=== PATIENT | female | born 1930 | race Caucasian/White ===

== ENCOUNTER 2016-11-09 17:12 | Outpatient (CLI) | payer MEDICARE, OTHER | END 2016-11-09 17:13 | disposition EMS.NT | LOC: EMS 17:12 | PROVIDERS: ATTEND Surgery | DX: R06.02 Shortness of breath (principal) ==

== ENCOUNTER 2016-12-05 22:53 | Outpatient (CLI) | payer MEDICARE, OTHER | END 2016-12-05 22:54 | disposition EMS.NT | LOC: EMS 22:53 | PROVIDERS: ATTEND Surgery | DX: Z03.89 Encounter for observation for other suspected diseases and conditions ruled out (principal) ==

== ENCOUNTER 2016-12-09 13:09 | Outpatient (CLI) | payer MEDICARE, OTHER | END 2016-12-09 13:10 | disposition EMS.NT | LOC: EMS 13:09 | PROVIDERS: ATTEND Surgery | DX: R53.1 Weakness (principal); W06.XXXA Fall from bed, initial encounter; Y92.003 Bedroom of unspecified non-institutional (private) residence as the place of occurrence of the external cause ==

== ENCOUNTER 2017-01-20 23:29 | Outpatient (CLI) | payer MEDICARE, OTHER | END 2017-01-20 23:30 | disposition EMS.NT | LOC: EMS 23:29 | PROVIDERS: ATTEND Surgery | DX: R53.1 Weakness (principal); W06.XXXA Fall from bed, initial encounter; Y92.003 Bedroom of unspecified non-institutional (private) residence as the place of occurrence of the external cause ==

== ENCOUNTER 2017-03-14 22:08 | Outpatient (CLI) | payer MEDICARE, OTHER | END 2017-03-14 22:09 | disposition EMS.NT | LOC: EMS 22:08 | PROVIDERS: ATTEND Surgery | DX: R53.1 Weakness (principal) ==

== ENCOUNTER 2017-04-06 21:05 | Outpatient (CLI) | payer MEDICARE, OTHER | END 2017-04-06 21:06 | disposition home or self-care (01) | LOC: EMS 21:05 | PROVIDERS: ATTEND Surgery | DX: Z03.89 Encounter for observation for other suspected diseases and conditions ruled out (principal) ==

== ENCOUNTER 2017-05-22 14:19 | Outpatient (CLI) | payer MEDICARE, OTHER | END 2017-05-22 14:20 | disposition EMS.NT | LOC: EMS 14:19 | PROVIDERS: ATTEND Surgery | DX: R15.9 Full incontinence of feces (principal) ==

== ENCOUNTER 2017-08-03 14:10 | Outpatient (CLI) | payer MEDICARE, OTHER ==
--- NOTE | 2017-08-04 09:53 | XRAY Report ---
TWO VIEW CHEST: 08/03/2017 COMPARISON STUDY: Frontal chest 08/02/2015. INDICATION: Wheezing. TECHNIQUE: Two views. FINDINGS: There are postoperative changes of the right thorax. The lungs appear to be otherwise clear. No pneumothorax or pleural effusion. There is stable cardiomegaly. IMPRESSION: NO EVIDENCE OF ACUTE THORACIC PROCESS. TD: 08/04/2017 09:52 MTDD
== END 2017-08-03 14:11 | disposition home or self-care (01) ==
LOC: DI 14:10
PROVIDERS: ATTEND Physician Assistant Medical
DX: R06.2 Wheezing (principal); R73.9 Hyperglycemia, unspecified; I10 Essential (primary) hypertension; E03.9 Hypothyroidism, unspecified; R32 Unspecified urinary incontinence; Z79.899 Other long term (current) drug therapy
CPT/HCPCS: 71046; 80053; 80061; 81001; 81003; 82306; 83036; 83721; 84443; 85025; 87086

== ENCOUNTER 2017-08-09 06:11 | Outpatient (CLI) | payer MEDICARE, OTHER | END 2017-08-09 06:12 | disposition EMS.NT | LOC: EMS 06:11 | PROVIDERS: ATTEND Surgery | DX: Z03.89 Encounter for observation for other suspected diseases and conditions ruled out (principal) ==

== ENCOUNTER 2017-08-31 05:21 | Outpatient (CLI) | payer MEDICARE, OTHER | END 2017-08-31 05:22 | disposition EMS.NT | LOC: EMS 05:21 | PROVIDERS: ATTEND Surgery | DX: R32 Unspecified urinary incontinence (principal) ==

== ENCOUNTER 2017-09-11 21:47 | Outpatient (CLI) | payer MEDICARE, OTHER | END 2017-09-11 21:48 | disposition EMS.NT | LOC: EMS 21:47 | PROVIDERS: ATTEND Surgery | DX: F41.9 Anxiety disorder, unspecified (principal) ==

== ENCOUNTER 2017-09-14 18:20 | Outpatient (CLI) | payer MEDICARE, OTHER | END 2017-09-14 23:59 | disposition EMS.NT | LOC: EMS 18:20 | PROVIDERS: ATTEND Surgery | DX: Z76.89 Persons encountering health services in other specified circumstances (principal) ==

== ENCOUNTER 2017-10-11 21:49 | Outpatient (CLI) | payer MEDICARE, OTHER | END 2017-10-11 21:50 | disposition EMS.NT | LOC: EMS 21:49 | PROVIDERS: ATTEND Surgery | DX: Z03.89 Encounter for observation for other suspected diseases and conditions ruled out (principal) ==

== ENCOUNTER 2017-10-11 23:58 | Outpatient (CLI) | payer MEDICARE, OTHER | END 2017-10-11 23:59 | disposition EMS.NT | LOC: EMS 23:58 | PROVIDERS: ATTEND Surgery | DX: Z03.89 Encounter for observation for other suspected diseases and conditions ruled out (principal) ==

== ENCOUNTER 2017-10-26 02:37 | Outpatient (CLI) | payer MEDICARE, OTHER | END 2017-10-26 02:38 | disposition critical access hospital (66) | LOC: EMS 02:37 | PROVIDERS: ATTEND Surgery | DX: R41.82 Altered mental status, unspecified (principal); R45.1 Restlessness and agitation | CPT/HCPCS: A0425; A0429 ==

== ENCOUNTER 2017-10-26 03:14 | Emergency (ER) | payer MEDICARE, OTHER ==
[2017-10-26 03:50] LABS: BILIRUBIN,URINE NEGATIVE (NEGATIVE); GLUCOSE, URINE (UA) NEGATIVE (NEGATIVE); KETONES,URINE (UA) NEGATIVE (NEGATIVE); LEUKOCYTE ESTERASE, URINE SMALL (NEGATIVE); NITRITE,URINE POSITIVE (NEGATIVE); OCCULT BLOOD,URINE LARGE (NEGATIVE); PH,URINE 5.5 PH (5.0-7.5); PROTEIN,URINE 30 mg/dL (NEGATIVE); UROBILINOGEN,URINE 0.2 (NORMAL) E.U./dL (NORMAL)
[2017-10-26 03:59] LABS: CLARITY,URINE CLEAR (CLEAR)
[2017-10-26 04:00] LABS: BACTERIA,URINE Moderate /HPF (None Seen); SQUAMOUS EPITHELIAL CELL,UR NONE SEEN (<= Few)
[2017-10-26 04:01] LABS: BASOPHILS % (AUTO) 0.4 %; EOSINOPHILS # (AUTO) 0.1 10^3/uL (0.0-0.7); EOSINOPHILS % (AUTO) 0.8 %; HGB - HEMOGLOBIN 13.9 g/dL (12.0-16.0); LYMPHOCYTES # (AUTO) 2.1 10^3/uL (1.5-3.5); LYMPHOCYTES % (AUTO) 24.4 %; MEAN CORPUSCULAR HEMOGLOBIN 32.3 pg (27.0-31.0); MEAN CORPUSCULAR HGB CONC 32.9 g/dL (32.0-36.0); MEAN CORPUSCULAR VOLUME 98.1 fL (81.0-99.0); MEAN PLATELET VOLUME 8.2 fL (7.9-10.8); MONOCYTES # (AUTO) 0.8 10^3/uL (0.0-1.0); MONOCYTES % (AUTO) 9.4 %; NEUTROPHILS # (AUTO) 5.7 10^3/uL (1.5-6.6); PLT - PLATELET COUNT 186 10^3/uL (130-450); RED CELL DISTRIBUTION WIDTH 13.5 % (12.0-15.0); WHITE BLOOD COUNT 8.8 x10^3/uL (4.8-10.8)
[2017-10-26 04:08] LABS: CREATININE 1.1 mg/dL (0.4-1.0)
--- NOTE | 2017-10-26 04:15 | ED Physician Documentation ---
PD HPI ALTERED MENTAL STATUS - Stated complaint Stated Complaint: AMS - Chief complaint Chief Complaint: General - History obtained from History obtained from: Patient, EMS - History of Present Illness Timing - details: Waxing and waning Quality / character: Confused Basline status: Alert and oriented X 3, Home, Other (Requires assistance to ambulate.) - Additional information Additional information: The patient is an 87-year-old female who arrives via ambulance because of apparent confusion. She lives alone in her own home, and has daytime caregivers , but is alone at night. Medics report that she has been calling [phone] 1 1 at night for caregiver assistance, such as helping find her medication, rearranging her in bed so she is more comfortable, and helping her locate her telephone. Tonight the medics spent an hour at her bedside at home trying to make her more comfortable, but became increasingly concerned that the patient was confused. In discussion with the patient's nephew, who lives in [place] and who is the patient's power of attorney recruiter, medics learned that the patient has been mentally clear during the day, but has become increasingly confused during the night. There has been discussion about getting a nighttime caregiver, but that has not yet been achieved. The patient states that she stays in bed from the time her caregivers leave in the evening until they arrive in the morning. 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 She is upset at being brought to the emergency department tonight, stating they took her from her home against her will. She denies any recent fever, headache, chest pain, cough, abdominal pain, nausea or vomiting, or dysuria. Review of Systems Constitutional: denies: Fever Eyes: reports: Other (Near blindness.) Nose: denies: Congestion Throat: denies: Sore throat Cardiac: denies: Chest pain / pressure Respiratory: denies: Dyspnea, Cough GI: denies: Abdominal Pain, Nausea, Vomiting : denies: Dysuria Musculoskeletal: denies: Back pain, Extremity pain Neurologic: reports: Confused (By medic report, but denied by the patient.). 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 - Past Surgical History Past Surgical History: Yes Ortho: Hip replacement - Present Medications Home Medications: Ambulatory Orders Medication Instructions Recorded Confirmed Brimonidine 0.15% Ophth Drops 1 08/02/15 [Alphagan P 0.15% Ophth Drops] Citalopram Hydrobromide [Celexa] 10 mg DAILY 08/02/15 08/02/15 Clopidogrel [Plavix] 75 mg DAILY 08/02/15 08/02/15 Hydrochlorothiazide 25 mg PO DAILY 08/02/15 08/02/15 Levothyroxine [Synthroid] 150 mcg PO QDAC 08/02/15 08/02/15 Lisinopril 40 mg PO DAILY 08/02/15 08/02/15 Metoprolol Tartrate 25 mg DAILY 08/02/15 08/02/15 Escitalopram [Lexapro] 10/26/17 10/26/17 Nitrofurantoin [Macrobid] 100 mg PO BID #10 capsule 10/26/17 - Allergies Allergies/Adverse Reactions: Allergies Allergy/AdvReac Type Severity Reaction Status Date / Time No Known Drug Allergies Allergy Verified 10/26/17 03:22 - Living Situation Living Situation: reports: With caregiver(s) (death claim clerk.) Living Arrangement: reports: At home - Social History Does the pt smoke?: No Smoking Status: Never smoker Does the pt drink ETOH?: Yes Does the pt have substance abuse?: No 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 - Immunizations Immunizations are current?: Yes - POLST Patient has POLST: No PD ED PE NORMAL - Vitals Vital signs reviewed: Yes (Hypertensive.) - General General: Alert and oriented X 3, Other (Generally deconditioned.) - HEENT HEENT: Atraumatic, Other (Cloudy pupils.) - Neck Neck: No adenopathy, No JVD - Cardiac Cardiac: RRR - Respiratory Respiratory: No respiratory distress, Clear bilaterally - Abdomen Abdomen: Soft, Non tender - Back Back: No CVA TTP - Derm Derm: Other (Dry, scaly rash on the soles of the feet, consistent with fungal infection.) - Extremities Extremities: No edema, No calf tenderness / cord - Neuro Neuro: Alert and oriented X 3, Normal speech, Other (Residual left-sided weakness due to previous CVA.) Results - Vitals Vitals: Vital Signs - 24 hr 10/26/17 10/26/17 10/26/17 03:16 03:28 05:59 Temperature 36.4 C L Heart Rate 77 81 Respiratory 18 16 Rate Blood Pressure 147/96 H 155/83 H O2 Saturation 89 L 93 92 10/26/17 10:23 Temperature 36.5 C Heart Rate 78 Respiratory 16 Rate Blood Pressure 148/78 H O2 Saturation 95 Oxygen O2 Source Room air Oxygen Flow Rate 2 - Labs Labs: Microbiology 10/26/17 03:47 Urine Culture - Preliminary Urine,Catheterized CULTURE IN PROGRESS. RESULTS TO FOLLOW. Laboratory Tests 10/26/17 10/26/17 10/26/17 03:47 03:52 03:52 WBC 8.8 RBC 4.30 Hgb 13.9 Hct 42.1 MCV 98.1 MCH 32.3 H MCHC 32.9 RDW 13.5 Plt Count 186 MPV 8.2 Neut # (Auto) 5.7 Lymph # (Auto) 2.1 Jack # (Auto) 0.8 Eos # (Auto) 0.1 Baso # (Auto) 0.0 Absolute Nucleated RBC 0.00 Nucleated RBC % 0.0 Sodium 138 Potassium 3.7 Chloride 98 L Carbon Dioxide 30 Anion Gap 10.0 BUN 27 H Creatinine 1.1 H Estimated GFR (MDRD) 47 L Glucose 120 H Calcium 9.0 Urine Color YELLOW Urine Clarity CLEAR Urine pH 5.5 Ur Specific [place] >=1.030 H Urine Protein 30 H Urine Glucose (UA) NEGATIVE Urine Ketones NEGATIVE Urine Occult Blood LARGE H Urine Nitrite POSITIVE H Urine Bilirubin NEGATIVE Urine Urobilinogen 0.2 (NORMAL) Ur Leukocyte Esterase SMALL H Urine RBC 11-25 H Urine WBC >25 H Ur Squamous Epith Cells NONE SEEN Urine Bacteria Moderate H Ur Microscopic Review INDICATED Urine Culture Comments INDICATED PD MEDICAL DECISION MAKING - ED course Complexity details: reviewed old records, reviewed results, re-evaluated patient , considered differential, d/w patient ED course: The patient's presentation is significant for urinary tract infection, with pyuria and bacteriuria on a catheterized urine specimen. She does not appear septic, and has a normal white count of 8.8. She does not exhibit altered mental status while in the emergency department, but confusion is a frequent symptom in elderly patients with urinary tract infection. Treatment in the emergency department included administration of ceftriaxone 1 g IV and NS IV. She is being discharged with prescription for Macrobid. I discussed with her and her caregiver the diagnosis, antibiotic treatment and outpatient follow-up, as well as potentially worrisome signs or symptoms that should prompt reevaluation in the emergency department. Departure - Departure Disposition: 01 Home, Self Care Clinical Impression: Mild dehydration UTI (urinary tract infection) Qualifiers: Urinary tract infection type: acute cystitis Hematuria presence: with hematuria Qualified Code(s): N30.01 - Acute cystitis with hematuria Condition: Stable Instructions: ED UTI Cystitis Female Follow-Up: Godfrey Steward MD [Provider Admit Priv/Credential] - Prescriptions: Nitrofurantoin [Macrobid] 100 mg PO BID #10 capsule Comments: Drink plenty of fluids, including cranberry juice. Take Macrobid twice daily as prescribed. You can use Tylenol or ibuprofen as needed for fever or discomfort. Follow up with your primary physician within 2 weeks. Call to schedule appointment. Return to the emergency department if you develop increasing abdominal pain, fever with shaking chills, persistent vomiting, or otherwise worsening symptoms. Discharge Date/Time: 10/26/17 10:23
[2017-10-26] MEDS ORDERED: cefTRIAXone 1 GM in SODIUM CHLORIDE 0.9% MINIBAG 100 ML IV STA (05:05)
[2017-10-26] MEDS ORDERED: SODIUM CHLORIDE 0.9% 1,000 ML IV ONE (05:46)
[2017-10-26 10:43] VITALS: BP 148/78
== END 2017-10-26 10:23 | disposition home or self-care (01) ==
LOC: EDUNIT# → SUPCPDRO 03:14 → ED 03:14
DX: I10 Essential (primary) hypertension (principal); I69.398 Other sequelae of cerebral infarction; H54.62 Unqualified visual loss, left eye, normal vision right eye
CPT/HCPCS: 36415; 51701; 80048; 81001; 81003; 85025; 87077; 87086; 87181; 96365; 99284

== ENCOUNTER 2017-10-26 10:24 | Outpatient (CLI) | payer MEDICARE, OTHER | END 2017-10-26 10:25 | disposition home or self-care (01) | LOC: EMS 10:24 | PROVIDERS: ATTEND Surgery | DX: I69.359 Hemiplegia and hemiparesis following cerebral infarction affecting unspecified side (principal) | CPT/HCPCS: A0425; A0429 ==

== ENCOUNTER 2017-10-27 20:50 | Outpatient (CLI) | payer MEDICARE, OTHER | END 2017-10-27 20:51 | disposition EMS.NT | LOC: EMS 20:50 | PROVIDERS: ATTEND Surgery | DX: Z03.89 Encounter for observation for other suspected diseases and conditions ruled out (principal) ==

== ENCOUNTER 2017-10-30 09:40 | Outpatient (CLI) | payer MEDICARE, OTHER | END 2017-10-30 09:41 | disposition EMS.NT | LOC: EMS 09:40 | PROVIDERS: ATTEND Surgery | DX: R07.9 Chest pain, unspecified (principal); F41.9 Anxiety disorder, unspecified ==

== ENCOUNTER 2017-12-03 21:31 | Outpatient (CLI) | payer MEDICARE, OTHER | END 2017-12-03 21:32 | disposition EMS.NT | LOC: EMS 21:31 | PROVIDERS: ATTEND Surgery | DX: Z03.89 Encounter for observation for other suspected diseases and conditions ruled out (principal) ==

== ENCOUNTER 2017-12-20 00:39 | Outpatient (CLI) | payer MEDICARE, OTHER | END 2017-12-20 00:40 | disposition EMS.NT | LOC: EMS 00:39 | PROVIDERS: ATTEND Surgery | DX: Z03.89 Encounter for observation for other suspected diseases and conditions ruled out (principal) ==

== ENCOUNTER 2017-12-27 16:19 | Inpatient (IN) | payer MEDICARE, OTHER ==
[2017-12-27 16:48] LABS: BASOPHILS % (AUTO) 0.2 %; EOSINOPHILS % (AUTO) 0.1 %; HGB - HEMOGLOBIN 13.6 g/dL (12.0-16.0); LYMPHOCYTES # (AUTO) 1.5 10^3/uL (1.5-3.5); MEAN CORPUSCULAR HEMOGLOBIN 31.9 pg (27.0-31.0); MEAN CORPUSCULAR VOLUME 96.7 fL (81.0-99.0); MEAN PLATELET VOLUME 8.3 fL (7.9-10.8); MONOCYTES # (AUTO) 0.7 10^3/uL (0.0-1.0); MONOCYTES % (AUTO) 7.9 %; NEUTROPHILS # (AUTO) 6.2 10^3/uL (1.5-6.6); NEUTROPHILS % (AUTO) 73.8 %; PLT - PLATELET COUNT 184 10^3/uL (130-450); RED BLOOD COUNT 4.26 10^6/uL (4.20-5.40); RED CELL DISTRIBUTION WIDTH 13.8 % (12.0-15.0); WHITE BLOOD COUNT 8.4 x10^3/uL (4.8-10.8)
[2017-12-27 16:53] LABS: CREATININE 1.1 mg/dL (0.4-1.0)
[2017-12-27] MEDS ORDERED: ONDANSETRON ODT 4 MG TABLET TL STA (17:01)
[2017-12-27] MEDS ORDERED: MORPHINE 2 MG/ML SYRINGE IM STA (17:01)
--- NOTE | 2017-12-27 17:54 | XRAY Report ---
Procedure Date: 12/27/2017 Accession Number: [id number] / [id number] Procedure: XR - Chest 2 View X-Ray CPT Code: 47868 FULL RESULT: EXAM: CHEST RADIOGRAPHY EXAM DATE: 12/27/2017 05:40 PM. CLINICAL HISTORY: Hypoxic. COMPARISON: CHEST 2 VIEW 08/03/2017. TECHNIQUE: 2 views. FINDINGS: Lungs/Pleura: No focal opacities evident. No pleural effusion. No pneumothorax. Normal volumes. Limited penetration which limits visualization due to large body habitus. Mediastinum: Cardiomegaly. Other: Surgical clips project over the right lower lung. IMPRESSION: Stable cardiomegaly. No acute findings are seen. Limited as above. RADIA
--- NOTE | 2017-12-27 17:59 | XRAY Report ---
Procedure Date: 12/27/2017 Accession Number: [id number] / [id number] Procedure: XR - Hip w/Pelvis 2-3V LT CPT Code: FULL RESULT: EXAM: LEFT HIP AND PELVIS RADIOGRAPHY EXAM DATE: 12/27/2017 05:40 PM. HISTORY: Pain after falls. COMPARISONS: None. TECHNIQUE: 1 view of the pelvis and 1 view of the hip. FINDINGS: Bones are demineralized. Bilateral total hip arthroplasties. No dislocation. The left hip appears laterally rotated on both views. This limits evaluation. No definite acute fracture is seen. IMPRESSION: Bones are demineralized. Bilateral total hip arthroplasties. No dislocation. The left hip appears laterally rotated on both views. This limits evaluation. No definite acute fracture is seen. RADIA
--- NOTE | 2017-12-27 17:59 | ED Physician Documentation ---
History of Present Illness - Stated complaint Stated Complaint: HIP PX - Chief complaint Chief Complaint: Ext Problem - Additonal information Additional information: hx from pt and EMS 87 f prior CVA with L hemiparesis on plavix among others states she will never go to a residential - that she has all the help she needs in the house (EMS states that is because she uses her lifeline to call them to come to the house and do things like find her TV remote) EMS is concerned about her safety - apparently she has a very nice house but is confined to a nest like structure she has built for herself under the stairs and urinates in a bottle using a funnel because she cannot get around apparently she slid out of bed onto her buttocks several times in the last 24 hr and was unable to get up again she states last night she passed out - she does t think she hit her head but does not seem to know why else she might have passed out called 911 several times and declined transport - just wanted lift assist but then after more falls, she started having severe L hip pain no MAST or neck pain other than plavix no CP or cough, she feels a bit SOA no abd pain denies NVD no new numbness or weakness - had prior CVA with L hemiparesis L hip pain medially pt is extremely sad and frustrated - states 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 and spent all her time outside and now she cannot move at all - she does enjoy being in her house with the english doors open to let the fresh air and view in - and now EMS has brought her to the hospital to a room with no windows and her blood pressure and O2 levels are too low for her to safely return home tonight - according to prior home health visits pt has mightily resisted all attempts to place her and wants to stay at home though EMS feels this is not safe and she is using her life line very often (50+ times in last 6 months per EMS) for assistance with minor issues like getting her remote Review of Systems Constitutional: reports: Fatigue. denies: Fever, Chills Ears: denies: Drainage/discharge Nose: denies: Epistaxis Cardiac: denies: Chest pain / pressure Respiratory: reports: Dyspnea. denies: Cough GI: denies: Abdominal Pain, Nausea, Vomiting Neurologic: reports: Generalized weakness Endocrine: denies: Polyphagia, Easy bruising / bleeding PD PAST MEDICAL HISTORY - Past Medical History Cardiovascular: Hypertension Respiratory: None Neuro: CVA Endocrine/Autoimmune: HyPOthyroidism GI: None : Incontinence HEENT: Glaucoma Psych: None Musculoskeletal: None Derm: None - Past Surgical History Past Surgical History: Yes Ortho: Hip replacement - Present Medications Home Medications: Ambulatory Orders Medication Instructions Recorded Confirmed Brimonidine 0.15% Ophth Drops 1 08/02/15 [Alphagan P 0.15% Ophth Drops] Citalopram Hydrobromide [Celexa] 10 mg DAILY 08/02/15 08/02/15 Clopidogrel [Plavix] 75 mg DAILY 08/02/15 08/02/15 Hydrochlorothiazide 25 mg PO DAILY 08/02/15 08/02/15 Levothyroxine [Synthroid] 150 mcg PO QDAC 08/02/15 08/02/15 Lisinopril 40 mg PO DAILY 08/02/15 08/02/15 Metoprolol Tartrate 25 mg DAILY 08/02/15 08/02/15 Escitalopram [Lexapro] 10/26/17 10/26/17 Nitrofurantoin [Macrobid] 100 mg PO BID #10 capsule 10/26/17 - Allergies Allergies/Adverse Reactions: Allergies Allergy/AdvReac Type Severity Reaction Status Date / Time No Known Drug Allergies Allergy Verified 10/26/17 03:22 - Social History Does the pt smoke?: No Smoking Status: Never smoker Does the pt drink ETOH?: Yes Does the pt have substance abuse?: No - Immunizations Immunizations are current?: Yes - POLST Patient has POLST: No PD ED PE NORMAL - Vitals Vital signs reviewed: Yes - General General: Alert and oriented X 3 - HEENT HEENT: Atraumatic. No: PERRL (cloudy c/w cataracts) - Neck Neck: No bony TTP - Cardiac Cardiac: RRR - Respiratory Respiratory: No respiratory distress, Other (shallow resp, tachypneic, hypoxic) - Abdomen Abdomen: Soft, Non tender - Back Back: Other (no decubs) - Derm Derm: Normal color - Extremities Extremities: Other (L hip externally rotated, not short, TTP inguinal crease, after neg xray tried to range and hip flexion is very painful and pt not able to internally rotate at all) - Neuro Neuro: Alert and oriented X 3, tattooer 2-12 intact, Normal speech. No: No motor deficit (L sided weakness is apparently baseline) Eye Opening: Spontaneous Motor: Obeys Commands Verbal: Oriented GCS Score: 15 Results - Vitals Vitals: Vital Signs - 24 hr 12/27/17 12/27/17 12/27/17 16:23 16:27 18:43 Temperature 37.0 C Heart Rate 77 Respiratory 22 Rate Blood Pressure 140/97 H O2 Saturation 89 L 92 12/27/17 12/27/17 12/27/17 18:48 20:19 20:34 Temperature 36.7 C Heart Rate 81 77 Respiratory 12 20 Rate Blood Pressure 95/50 L 94/59 L O2 Saturation 89 L 92 12/27/17 20:49 Temperature Heart Rate 75 Respiratory 18 Rate Blood Pressure 111/69 O2 Saturation 95 Oxygen O2 Source Nasal cannula - EKG (time done) 2040 Rate: Rate (enter#) (81) Rhythm: NSR Ischemia: Other (low voltage diffusely, inf Q waves, no acute) - Labs Labs: Laboratory Tests 12/27/17 12/27/17 12/27/17 16:40 16:40 16:40 WBC 8.4 RBC 4.26 Hgb 13.6 Hct 41.2 MCV 96.7 MCH 31.9 H MCHC 33.0 RDW 13.8 Plt Count 184 MPV 8.3 Neut # (Auto) 6.2 Lymph # (Auto) 1.5 [place] # (Auto) 0.7 Eos # (Auto) 0.0 Baso # (Auto) 0.0 Absolute Nucleated RBC 0.00 Nucleated RBC % 0.0 Sodium 131 L Potassium 4.0 Chloride 91 L Carbon Dioxide 30 Anion Gap 10.0 BUN 20 Creatinine 1.1 H Estimated GFR (MDRD) 47 L Glucose 138 H Lactic Acid Calcium 9.0 Troponin I < 0.04 B-Natriuretic Peptide Urine Color Urine Clarity Urine pH Ur Specific [place] Urine Protein Urine Glucose (UA) Urine Ketones Urine Occult Blood Urine Nitrite Urine Bilirubin Urine Urobilinogen Ur Leukocyte Esterase Ur Microscopic Review Urine Culture Comments 12/27/17 12/27/17 12/27/17 16:40 18:53 19:03 WBC RBC Hgb Hct MCV MCH MCHC RDW Plt Count MPV Neut # (Auto) Lymph # (Auto) [place] # (Auto) Eos # (Auto) Baso # (Auto) Absolute Nucleated RBC Nucleated RBC % Sodium Potassium Chloride Carbon Dioxide Anion Gap BUN Creatinine Estimated GFR (MDRD) Glucose Lactic Acid 1.3 Calcium Troponin I B-Natriuretic Peptide 48 Urine Color YELLOW Urine Clarity CLEAR Urine pH 5.5 Ur Specific [place] 1.020 Urine Protein NEGATIVE Urine Glucose (UA) NEGATIVE Urine Ketones NEGATIVE Urine Occult Blood NEGATIVE Urine Nitrite NEGATIVE Urine Bilirubin NEGATIVE Urine Urobilinogen 0.2 (NORMAL) Ur Leukocyte Esterase NEGATIVE Ur Microscopic Review NOT INDICATED Urine Culture Comments NOT INDICATED - Rads (name of study) CTH Radiology: See rad report (no mass shift bleed) CT CS Radiology: See rad report (numerous age indet compression fractures, no prevertebral STS, no retropulsion, likely old but if new stable per neurorad, given number of fx rads notes pt to be at high risk for future spine injuries and rec implementing fall precautions) CT chest Radiology: See rad report (no PE atelectasis) CT L hip Radiology: See rad report (6 X 4 X 2 cm hypodensity in musculature likely a hematoma and unlikely and abscess (hamtoma would fit with recent fall and hip is not red or warm to suggest abscess), also rad states pt os very osteopenic and it is diff to rule in or out a fx but it is possible that there is a fx of the super lateral greater troch - hardware appears well seated per rad read - advised hospitalist ) PD MEDICAL DECISION MAKING - ED course ED course: elderly female generally imobile 2/2 prior CVA to [facility] with numerous falls, and now with severe L hip pain also noted to be hypoxic CBC chem BNP trop only notabel for mild renal insuff and mild hyponatremia CXR cardiomegaly but no CHF or pna - given that pt is immobile most of the time is at risk for PE and ordered CTPA hip xray surprisingly does not show dislocation - I though periprosthetic fx but not so per rad report and d/w rads - pt cannot int rotate or flex that hip - will CT now pt is saying she blacked out whn she fell though EMS initially states that there was no LOC - so also got a CTH 1845 a/c tech advises me pt is now more hypoxic and hypotensive as well - added on lactate and blood cx and IVF still waiting for urine ordered at 1627 UA came back clean 2014 advised BP is still low - pt has not yet gotten the L of IVF ordered at BP little better after the IVF cause of hypotension and hypoxia still unclear - CXR CTPA EKG trop BNP all unrevealing, no anemic, rolled pt to check skin on back and no decubs - no infectious source found - Sepsis Event Vital Signs: Vital Signs - 24 hr 12/27/17 12/27/17 12/27/17 16:23 16:27 18:43 Temperature 37.0 C Heart Rate 77 Respiratory 22 Rate Blood Pressure 140/97 H O2 Saturation 89 L 92 12/27/17 12/27/17 12/27/17 18:48 20:19 20:34 Temperature 36.7 C Heart Rate 81 77 Respiratory 12 20 Rate Blood Pressure 95/50 L 94/59 L O2 Saturation 89 L 92 12/27/17 20:49 Temperature Heart Rate 75 Respiratory 18 Rate Blood Pressure 111/69 O2 Saturation 95 Oxygen O2 Source Nasal cannula Departure - Departure Disposition: 66 [facility] DC/Xfer Clinical Impression: Hypoxia, Hematoma Hypotension Qualifiers: Hypotension type: unspecified hypotension type Qualified Code(s): I95.9 - Hypotension, unspecified Fall Qualifiers: Encounter type: initial encounter Qualified Code(s): W19.XXXA - Unspecified fall, initial encounter Hip pain Qualifiers: Laterality: left Qualified Code(s): M25.552 - Pain in left hip Greater trochanter fracture Qualifiers: Encounter type: initial encounter Fracture type: closed Fracture alignment: nondisplaced Laterality: left Qualified Code(s): S72.115A - Nondisplaced fracture of greater trochanter of left femur, initial encounter for closed fracture Condition: Poor
[2017-12-27] MEDS ORDERED: SODIUM CHLORIDE 0.9% 1,000 ML IV ONE (18:47)
[2017-12-27] MEDS ORDERED: IOPAMIDOL-300 100 ML VIAL ONE (19:07)
[2017-12-27 19:09] LABS: BILIRUBIN,URINE NEGATIVE (NEGATIVE); GLUCOSE, URINE (UA) NEGATIVE (NEGATIVE); KETONES,URINE (UA) NEGATIVE (NEGATIVE); LEUKOCYTE ESTERASE, URINE NEGATIVE (NEGATIVE); NITRITE,URINE NEGATIVE (NEGATIVE); OCCULT BLOOD,URINE NEGATIVE (NEGATIVE); PH,URINE 5.5 PH (5.0-7.5); PROTEIN,URINE NEGATIVE (NEGATIVE); UROBILINOGEN,URINE 0.2 (NORMAL) E.U./dL (NORMAL)
[2017-12-27 19:21] LABS: CLARITY,URINE CLEAR (CLEAR)
[2017-12-27] MEDS ORDERED: IOPAMIDOL-300 100 ML VIAL IVP ONE (20:27)
--- NOTE | 2017-12-27 20:45 | CT Report ---
Procedure Date: 12/27/2017 Accession Number: [id number] / [id number] Procedure: CT - Head W/O CPT Code: FULL RESULT: EXAM: CT HEAD WITHOUT CONTRAST. COMPARISON: CT head, 01/27/2013. CLINICAL HISTORY: Fall, loss of consciousness, Plavix.Multiple falls. TECHNIQUE: Axial CT images were obtained from the foramen magnum to the vertex without contrast In accordance with CT protocol optimization, one or more of the following dose reduction techniques were utilized for this exam: automated exposure control, adjustment of mA and/or KV based on patient size, or use of iterative reconstructive technique. FINDINGS: No acute intracranial hemorrhage. No masses. Redemonstrated are prominent bifrontal extra-axial CSF attenuation spaces, most likely reflecting volume loss given morphology. Ventricular size is normal. No lytic or blastic bone lesions are seen. Mastoids are clear. Middle ears are clear. There is leftward deviation of the external nose. Rightward deviation of the bony nasal septum is noted, clinical correlation with decreased right-sided nasal airflow suggested. No dense vessels. IMPRESSION: No intracranial hemorrhage, masses, or other discrete acute intracranial process identified.
--- NOTE | 2017-12-27 20:55 | CT Report ---
Procedure Date: 12/27/2017 Accession Number: [id number] / [id number] Procedure: CT - Cervical Spine W/O CPT Code: FULL RESULT: EXAM: CT CERVICAL SPINE WITHOUT CONTRAST DATE: 12/27/2017 08:17 PM. HISTORY: Recent multiple falls. COMPARISONS: Accompanying CT study chest, head. TECHNIQUE: Thin-section axial images were acquired of the cervical spine without contrast. Post-processing: Coronal and sagittal reformats. Other: None. In accordance with CT protocol optimization, one or more of the following dose reduction techniques were utilized for this exam: automated exposure control, adjustment of mA and/or KV based on patient size, or use of iterative reconstructive technique. Findings: Relevant images are indicated (image number, series number). Severe multilevel cervical spondylosis, superimposed generalized osteopenia. Degenerative joint space narrowing diffusely atlantoaxial, atlantooccipital articulation without subluxation. Slight grade 1 anterolisthesis C2 on C3. Slight grade 1 anterolisthesis C3 on C4. Suspected fracture in the C4 vertebral body with moderate/marked bow tie compression without significant retropulsion (48, 8). Slight grade 1 anterolisthesis C4 on C5. Slight grade 1 listhesis C5 on C6. Apparent chronic superior anterior endplate fracturing of C5, with mild anterior wedging deformity. Mild compression deformity of C6 superior endplate with potential nondisplaced superior endplate fracturing (45, 8). Slight grade 1 anterolisthesis C6 on C7, mild compression deformity of C7. T1-T2, probably seen T2-T3 appear unremarkable. Impressions: 1. Multiple age-indeterminate compression fractures involving vertebral bodies only as detailed above, no retropulsion, superimposed marked osteoporosis. Superimposed advanced multilevel cervical spondylosis with multilevel posterior facet bony fusion. No prevertebral soft tissue swelling. Findings could be chronic. Findings compatible with stable fracture deformity. 2. If clinical suspicion persists dedicated unenhanced MRI can be performed to evaluate for bone marrow edema. 3. Given the osteoporotic appearance of the entire spine, with multilevel compression deformities, this patient should be considered at risk for additional fractures, potentially with severe neurological sequela, especially given the history of multiple falls. [place] fall precautions if not already in place. Critical result: Findings discussed immediately with Dr. Boswell by phone on 12/27/2017 at 2049 hrs. RADIA
--- NOTE | 2017-12-27 20:57 | CT Report ---
Procedure Date: 12/27/2017 Accession Number: [id number] / [id number] Procedure: CT - Chest Angio (PE) CPT Code: FULL RESULT: EXAM: CT ANGIOGRAM CHEST. EXAM DATE: 12/27/2017 08:25 PM. CLINICAL HISTORY: Immobile, hypoxic, tachypneic. COMPARISON: None. TECHNIQUE: Routine helical imaging was performed through the chest in the pulmonary arterial phase. IV Contrast: 80 mL ISOVUE 300. Reconstructions: Coronal 3-D MIP reconstructions.Sagittal and coronal. In accordance with CT protocol optimization, one or more of the following dose reduction techniques were utilized for this exam: automated exposure control, adjustment of mA and/or KV based on patient size, or use of iterative reconstructive technique. FINDINGS: Pulmonary A mediastinum: Moderate atherosclerotic disease in the thoracic aorta. No thoracic aortic aneurysm. No mediastinal or hilar lymphadenopathy. Mild cardiomegaly. No mediastinal or hilar lymphadenopathy. No evidence for pulmonary emboli. Mild motion artifact limited. Lungs: Bilateral posterior dependent atelectasis. Scarring at the right middle lobe. No pleural effusion or pneumothorax. No acute bone findings. Upper abdomen: No acute findings. 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 IMPRESSION: 1. No evidence for pulmonary emboli. Mild motion artifact limited. 2. 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 3. See above. RADIA
[2017-12-27] MEDS ORDERED: LORazepam 2 MG/ML VIAL IVP STA (21:20)
--- NOTE | 2017-12-27 21:32 | CT Report ---
Procedure Date: 12/27/2017 Accession Number: [id number] / [id number] Procedure: CT - Lower Extremity Left W/O CPT Code: FULL RESULT: EXAM: LEFT HIP CT WITHOUT CONTRAST EXAM DATE: 12/27/2017 08:48 PM. CLINICAL HISTORY: Previous left total hip arthroplasty. Status post fall. Unable to rotate left hip. COMPARISON: HIP W/PELVIS 2-3V LT 12/27/2017. TECHNIQUE: Thin-section axial images were acquired of the hip without contrast. Post-processing: Coronal and sagittal reformats. Other: None. In accordance with CT protocol optimization, one or more of the following dose reduction techniques were utilized for this exam: automated exposure control, adjustment of mA and/or KV based on patient size, or use of iterative reconstructive technique. FINDINGS: The bones are osteopenic. Postoperative changes from previous left total hip arthroplasty. The left acetabular cup is intact without evidence of loosening. There is a questionable nondisplaced fracture at the superomedial aspect of the left femoral greater trochanter. The left femoral stem prosthesis is cemented into the left femur. No evidence of loosening of the left femoral prosthetic component. The left hip is externally rotated. No hip dislocation. Musculature: There is severe left gluteus minimus and moderate to severe left gluteus medius fatty atrophy. There is a 6.2 x 3.8 x 2.2 cm hypodense collection within the deep subcutaneous fat between the left gluteus medius and jerrod muscles. Other: The visualized intraperitoneal structures are unremarkable. IMPRESSION: 1. Osteopenia which lowers the sensitivity of detecting fractures by CT. 2. Previous left total hip arthroplasty. No left hip dislocation. Externally rotated left hip. 3. Questionable nondisplaced fracture at the superomedial aspect of the left femoral greater trochanter. 4. Severe left gluteus minimus and moderate to severe left gluteus medius muscle fatty atrophy. There is a 6.2 x 3.8 x 2.2 cm hypodense collection within the deep subcutaneous fat between the left gluteus medius and jerrod muscles. Differential may include a seroma, hematoma, scar tissue. An abscess is thought to be less likely, but cannot be entirely excluded. RADIA
[2017-12-27] MEDS ORDERED: ACETAMINOPHEN 325 MG TABLET PO PRN (22:19)
[2017-12-27] MEDS ORDERED: ONDANSETRON 4 MG/2 ML VIAL IVP PRN (22:19)
[2017-12-27] MEDS: D5NS W/20 MEQ KCL 1,000 ML IV SCH (22:52)
[2017-12-27] MEDS: HYDROcod/ACETAM 5/325 MG TABLET PO PRN (22:53)
[2017-12-27 23:39] LABS: ALBUMIN 3.1 g/dL (3.2-5.5); ALBUMIN/GLOBULIN RATIO 0.8 (1.0-2.2); BILIRUBIN,TOTAL 0.7 mg/dL (0.2-1.0); CALCIUM 8.4 mg/dL (8.5-10.3); CREATININE 1.2 mg/dL (0.4-1.0); TOTAL PROTEIN 6.8 g/dL (6.7-8.2)
[2017-12-28] MEDS: SODIUM CHLORIDE FLUSH 0.9% 10 ML SYRINGE IVP SCH ×3 (01:13→16:59)
--- NOTE | 2017-12-28 05:21 | HISTORY & PHYSICAL EXAMINATION ---
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 The patient lives at home, has had multiple falls, but refuses to live in a care home. She does have a caregiver for the daytime, unknown hours. The patient uses her [employer] to call 911 for various assistance once her caregiver is gone; she calls for bringing her fan closer, providing her with more than 1 urinal, helping her with medications, finding her television remote and assisting her when she falls. Apparently, there have been multiple falls and, for many of these, she has refused evaluation in the emergency room. The medical record indicates that she has had 50+ [employer] calls in the last 6 months. Today, she apparently fell out of bed and was too weak to get up. At one point, she described having syncope, but then remembers the entire event and thinks it was a fall. She did call her [employer] and was brought into the emergency room by an ambulance. In the ER, she was found to have a rotated left lower extremity and pain in the left hip and buttock and complaints of weakness. She went for various imaging and CT scans and, upon return to the ER, was noted to have a blood pressure of 80 and oxygen saturation of 80%. She was having rapid, shallow breathing at that point. She received a fluid bolus and blood pressure has improved to 100- 110 systolic. The imaging has shown that she has a fractured left femur and a large hematoma of the left buttock area. She has been admitted for management of hypotension and hypoxemia and the femur fracture. PAST MEDICAL HISTORY: Glaucoma, hypertension, hypothyroidism, stroke with residual left hemiparesis. ALLERGIES: NONE. MEDICATIONS 1. Synthroid 150 mcg daily. 2. Lisinopril 40 mg daily. 3. Metoprolol tartrate 25 mg daily. 4. HCTZ 25 mg daily. 5. Lexapro probably 10 mg daily. 6. Plavix 75 mg daily. 7. Celexa 10 mg daily. 8. Alphagan eyedrops. 9. It is unclear if she is on Macrobid now or not at 100 mg b.i.d. REVIEW OF SYSTEMS: A comprehensive review of systems was performed and pertinent positives are above, the rest are negative. FAMILY HISTORY: No inherited diseases. SOCIAL HISTORY: She lives alone, has a caregiver. Her nearest relative is a nephew who lives in [place]. She is a nonsmoker who never smoked, drinks no alcohol, uses no illicit drugs. PHYSICAL EXAMINATION GENERAL: Obese, elderly, white female. She is currently somnolent after receiving Ativan, as well as pain medications in the emergency room. VITAL SIGNS: Blood pressure 119/82, pulse of 74 in sinus rhythm, afebrile, oxygenation on 4 liters nasal cannula of 99%. HEENT: Unremarkable with moist oral mucosa. NECK: Obese. No JVD. CHEST: Clear at the anterior bases and anteriorly. HEART: Sounds normal, distant. No murmur. ABDOMEN: Obese, nontender. No organomegaly. EXTREMITIES: Trace pretibial edema. The left lower extremity is externally rotated. Bruise of left hip. NEUROLOGIC: Currently somnolent, but she was intact during the emergency room evaluation. LABORATORIES: Sodium 131, otherwise normal electrolytes, BUN 20, creatinine 1.1. Her GFR is therefore 47. Troponin not detectable. Lactic acid normal at 1.3. BNP normal at 48. No INR was done. CBC normal. Urinalysis normal. IMAGING Chest x-ray: Cardiomegaly but no active lung disease. CT angio of the chest: Cardiomegaly, but no pulmonary embolism and no infiltrate. Various imaging of the head, brain, C-spine, hip, pelvis and legs show that she has no acute stroke, chronic vertebral fractures of the C-spine and that she has a fracture, nondisplaced, of the left femur, and that the hip hardware is unaffected. EKG findings: Normal sinus rhythm, inferior Q-waves present. IMPRESSION/DIAGNOSES 1. Hypotension. 2. Hypoxemia. 3. Hyponatremia. 4. Syncope versus fall. 5. Left femur fracture. 6. Hypothyroidism. 7. Glaucoma. 8. Left hemiparesis after a stroke in 2013. 9. History of hypertension. 10. Abnormal electrocardiogram. PLAN Admit the patient on telemetry. Continue with IV hydration for blood pressure support using saline with potassium. Recheck a chest x-ray, as there could be a blossoming pneumonia after hydration. Continue with supplemental oxygen and recommend incentive spirometry. She could be shallow breathing because of pain in the buttocks or left hip area. Obtain an Echo to evaluate the hypoxia and abnormal EKG. Consider carotid Dopplers (although she did not have a TIA) to evaluate the possible syncope. Check orthostatic vital signs when possible. Currently, she is mostly bedridden because of her fracture and even a Cho is in place. Obtain an Orthopedic consult for evaluation and management of the femur fracture. Continue with her Synthroid and continue glaucoma eyedrops. Because of the low blood pressure, currently hold the beta emily and ERNESTO inhibitor, resume these if possible once blood pressure improves. Stop the Plavix, as there could be need for surgical intervention; in its place, start aspirin daily. Resume Plavix when OK with Ortho. Cycle troponins to rule out an AK, given the abnormal EKG. Deep venous thrombosis prophylaxis: Lovenox. CODE STATUS: FULL CODE. ATTESTATION: The patient is expected to be discharged or transferred to another facility within 96 hours: Yes. cc: Godfrey Steward MD TD: 12/28/2017 00:09 MTDD
[2017-12-28] MEDS: LEVOTHYROXINE 75 MCG TABLET PO SCH (06:04)
[2017-12-28 06:51] LABS: BASOPHILS % (AUTO) 0.4 %; EOSINOPHILS # (AUTO) 0.1 10^3/uL (0.0-0.7); EOSINOPHILS % (AUTO) 1.5 %; LYMPHOCYTES # (AUTO) 1.6 10^3/uL (1.5-3.5); LYMPHOCYTES % (AUTO) 21.9 %; MEAN CORPUSCULAR HEMOGLOBIN 32.3 pg (27.0-31.0); MEAN CORPUSCULAR HGB CONC 32.8 g/dL (32.0-36.0); MEAN CORPUSCULAR VOLUME 98.5 fL (81.0-99.0); MEAN PLATELET VOLUME 8.7 fL (7.9-10.8); MONOCYTES # (AUTO) 0.9 10^3/uL (0.0-1.0); NEUTROPHILS # (AUTO) 4.8 10^3/uL (1.5-6.6); NEUTROPHILS % (AUTO) 64.2 %; PLT - PLATELET COUNT 169 10^3/uL (130-450); RED BLOOD COUNT 4.03 10^6/uL (4.20-5.40); WHITE BLOOD COUNT 7.5 x10^3/uL (4.8-10.8)
[2017-12-28 07:04] LABS: CALCIUM 8.6 mg/dL (8.5-10.3); CREATININE 1.3 mg/dL (0.4-1.0)
[2017-12-28] MEDS ORDERED: ESCITALOPRAM 10 MG TABLET PO SCH (09:00)
--- NOTE | 2017-12-28 09:08 | XRAY Report ---
Procedure Date: 12/28/2017 Accession Number: [id number] / [id number] Procedure: XR - Chest 1 View X-Ray CPT Code: 92046 FULL RESULT: EXAM: Chest 1 View X-Ray DATE: 12/28/2017 8:27 AM CLINICAL HISTORY: F/U, Hypoxia COMPARISON: CT chest angiogram 12/27/2017. TECHNIQUE: Single view of the chest. FINDINGS: Lung volumes are low. Cardiomegaly with enlargement of the pulmonary arteries is redemonstrated, with apparent left pleural effusion possibly due to enlarged mediastinal silhouette. Increased interstitial markings in the right lung possibly represent pulmonary edema. There is no focal consolidation in the right lung. The upper left lung is clear. No pneumothorax. Postsurgical changes in the right chest are again seen. IMPRESSION: Limited radiograph with cardiomegaly and possible vascular congestion. Possible small left pleural effusion versus cardiomegaly. No focal consolidation in the visualized lungs. RADIA
[2017-12-28] MEDS: D5NS W/20 MEQ KCL 1,000 ML IV SCH ×2 (09:50→19:51)
[2017-12-28] MEDS: FAMOTIDINE 20 MG TABLET PO SCH (09:51)
[2017-12-28] MEDS: POLYETHYLENE GLYCOL 3350 17 GM PACKET PO SCH (09:51)
[2017-12-28] MEDS: ASPIRIN EC 325 MG TABLET PO SCH (09:51)
[2017-12-28] MEDS: CITALOPRAM 10 MG TABLET PO SCH (09:51)
[2017-12-28] MEDS: ENOXAPARIN 40 MG/0.4 ML SYRINGE SUBQ SCH (09:51)
--- NOTE | 2017-12-28 14:37 | CONSULTATION NOTE ---
Referring Provider Name of Referring Provider:: Melinda Consult Date: 12/28/17 Chief Complaint - Chief Complaint Chief Complaint: Left hip pain History of Present Illness - Admitted From Admitted From:: ER - History of Present Illness HPI Comment/Other: 87 year old female who has had multiple falls presents to ER with medical problems. Also found to have left hip pain. On Plavix after a CVA. 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 - POLST Patient has POLST: No Meds/Allgy - Home Medications Home Medications: Ambulatory Orders Medication Instructions Recorded Confirmed Citalopram Hydrobromide [Celexa] 20 mg PO DAILY 08/02/15 12/28/17 Clopidogrel [Plavix] 75 mg PO DAILY 08/02/15 12/28/17 Hydrochlorothiazide 25 mg PO DAILY 08/02/15 12/28/17 Levothyroxine [Synthroid] 150 mcg PO QDAC 08/02/15 12/28/17 Lisinopril 40 mg PO DAILY 08/02/15 12/28/17 Brimonidine 0.1% Ophth Drops 1 drops EACHEYE BID 12/28/17 12/28/17 [Alphagan P 0.1% Ophth Drops] Latanoprost 0.005% Ophth Drops 1 drops EACHEYE QPM 12/28/17 12/28/17 [Xalatan Ophth Drops] Metoprolol Succinate 25 mg PO DAILY 12/28/17 12/28/17 Naproxen Sodium 220 mg PO DAILY PRN 12/28/17 12/28/17 - Allergies Allergies/Adverse Reactions: Allergies Allergy/AdvReac Type Severity Reaction Status Date / Time No Known Drug Allergies Allergy Verified 10/26/17 03:22 Exam - Vital Signs Vital Signs: Vital Signs x48h Temp Pulse Resp BP Pulse Ox 12/28/17 13:08 36.6 C 85 13 131/76 H 92 12/28/17 08:15 36.6 C 74 16 136/82 H 95 12/28/17 08:00 62 16 99 - Physical Exam Extremities: positive: Other (Limb lengths clinically equal. Complaining of pain in the left hip.) Conclusion/Plan - Diagnosis Diagnosis: Hematoma from Plavix + fall - will monitor after discharge. No changes around the arthroplasty. Will resolve with time and would mobilize when stable. - Lab Results Fish Bones: 12/28/17 06:33 12/28/17 06:33
[2017-12-28] MEDS: HYDROcod/ACETAM 5/325 MG TABLET PO PRN ×2 (17:59→22:08)
[2017-12-28] MEDS ORDERED: NAPROXEN 250 MG TABLET PO PRN (18:32)
--- NOTE | 2017-12-28 18:36 | PROVIDER PROGRESS NOTE ---
Subjective - Prog Note Date Prog Note Date: 12/28/17 Prog Note Time: 18:33 - Subjective Pt reports feeling: Improved Subjective: The patient is somewhat tangential and tends to not answer the initial question , however she says that she does not have a significant amount of pain in her left leg nor does she have any shortness of breath. She denies any fevers or chills. Current Medications - Current Medications Current Medications: Active Medications Generic Name Dose Route Start Last Admin Trade Name Freq PRN Reason Stop Dose Admin Acetaminophen 650 mg 12/27/17 22:19 12/28/17 13:15 Tylenol PO 650 mg Q4HR PRN Administration Pain or Fever > 38C (100.4F) Hydrocodone Bitart/Acetaminophen 1 tab 12/27/17 22:19 12/28/17 17:59 Walton 5/325 PO 1 tab Q4HR PRN Administration Pain 5 to 7 Aspirin 325 mg 12/28/17 09:00 12/28/17 09:51 Ecotrin PO 325 mg DAILY SUNIL Administration Brimonidine Tartrate 1 drops 12/28/17 21:00 Alphagan P 0.1% Ophth Drops EACHEYE BID SUNIL Citalopram Hydrobromide 10 mg 12/28/17 09:00 12/28/17 09:51 Celexa PO 10 mg DAILY SUNIL Administration Enoxaparin Sodium 40 mg 12/28/17 09:00 12/28/17 09:51 Lovenox SUBQ 40 mg DAILY SUNIL Administration Famotidine 20 mg 12/28/17 09:00 12/28/17 09:51 Pepcid PO 20 mg DAILY SUNIL Administration Hydromorphone HCl 0.5 mg 12/27/17 22:19 Dilaudid Inj Syringe IVP Q2H PRN Pain 8 to 10 Potassium Chloride/Dextrose/Sod Cl 1,000 mls @ 100 mls/hr 12/27/17 23:00 11/09 18:00 IV 100 mls/hr .Q10H SUNIL Infusion Latanoprost 1 drops 12/28/17 21:00 Xalatan Ophth Drops EACHEYE QPM SUNIL Levothyroxine Sodium 150 mcg 12/28/17 07:00 12/28/17 06:04 Synthroid PO 150 mcg QDAC SUNIL Administration Metoprolol Succinate 25 mg 12/29/17 09:00 Toprol Xl PO DAILY SUNIL Naproxen 250 mg 12/28/17 18:32 Naprosyn PO DAILY PRN PAIN Ondansetron HCl 4 mg 12/27/17 22:19 Zofran Inj IVP Q6HR PRN Nausea / Vomiting Polyethylene Glycol 17 gm 12/28/17 09:00 12/28/17 09:51 Miralax PO 17 gm DAILY SUNIL Administration Sodium Chloride 10 ml 12/27/17 22:19 Normal Saline Flush 0.9% IVP PRN PRN NEEDED PER PROVIDER ORDERS Sodium Chloride 10 ml 12/28/17 01:00 12/28/17 16:59 Normal Saline Flush 0.9% IVP Not Given 0100,0900,1700 SUNIL Citalopram Hydrobromide [Celexa] 20 mg PO DAILY 08/02/15 Clopidogrel [Plavix] 75 mg PO DAILY 08/02/15 Hydrochlorothiazide 25 mg PO DAILY 08/02/15 Levothyroxine [Synthroid] 150 mcg PO QDAC 08/02/15 Lisinopril 40 mg PO DAILY 08/02/15 Brimonidine 0.1% Ophth Drops [Alphagan P 0.1% Ophth Drops] 1 drops EACHEYE BID 12/28/17 Latanoprost 0.005% Ophth Drops [Xalatan Ophth Drops] 1 drops EACHEYE QPM Metoprolol Succinate 25 mg PO DAILY 12/28/17 Naproxen Sodium 220 mg PO DAILY PRN 12/28/17 Objective - Vital Signs/Intake & Output Reviewed Vital Signs: Yes Vital Signs: Vital Signs x48h Temp Pulse Resp BP Pulse Ox 12/28/17 17:08 21 100 12/28/17 16:00 37.1 C 71 22 127/67 99 12/28/17 13:08 36.6 C 85 13 131/76 H 92 Intake & Output: Intake & Output 12/25/17 12/26/17 12/27/17 12/28/17 23:59 23:59 23:59 23:59 Intake Total 2676.667 Output Total 460 Balance 2216.667 - Objective General Appearance: positive: No acute distress, Alert Eyes Bilateral: positive: PERRL, EOMI, No scleral icterus Eyes: OU Lid inflammation ENT: positive: ENT inspection nml, Pharynx nml, No signs of dehydration Neck: positive: Nml inspection, Thyroid nml, No JVD, Trachea midline. negative : Thyromegaly Respiratory: positive: Chest non-tender, No respiratory distress, Breath sounds nml. negative: Wheezes, Rales, Rhonchi Cardiovascular: positive: Regular rate & rhythm, No murmur, No gallop Abdomen: positive: Non-tender, No organomegaly, Nml bowel sounds, No distention. negative: Guarding, Rebound Back: positive: Nml inspection. negative: CVA tenderness (R), CVA tenderness (L ) Skin: positive: Color nml, No rash, Warm, Dry. negative: Cyanosis Extremities: positive: Non-tender, No pedal edema, Other (The patient is morbidly obese with a BMI of 42 and has a large hematoma to her left thigh/ flank.) Neurologic/Psychiatric: positive: Oriented x3, CN's nml (2-12), Motor nml, Sensation nml, Mood/affect nml (The patient is tangential and tends to ramble but can be reoriented, albeit temporarily.) - Lab Results Fish Bones: 12/28/17 06:33 12/28/17 06:33 Other Labs: Lab Results x24hrs 12/28/17 12/28/17 12/27/17 Range/Units 06:33 06:33 23:12 WBC 7.5 (4.8-10.8) x10^3/uL RBC 4.03 L (4.20-5.40) 10^6/uL Hgb 13.0 (12.0-16.0) g/dL Hct 39.7 (37.0-47.0) % MCV 98.5 (81.0-99.0) fL MCH 32.3 H (27.0-31.0) pg MCHC 32.8 (32.0-36.0) g/dL RDW 14.0 (12.0-15.0) % Plt Count 169 (130-450) 10^3/uL MPV 8.7 (7.9-10.8) fL Neut # (Auto) 4.8 (1.5-6.6) 10^3/uL Lymph # (Auto) 1.6 (1.5-3.5) 10^3/uL [place] # (Auto) 0.9 (0.0-1.0) 10^3/uL Eos # (Auto) 0.1 (0.0-0.7) 10^3/uL Baso # (Auto) 0.0 (0.0-0.1) 10^3/uL Absolute Nucleated RBC 0.00 x10^3/uL Nucleated RBC % 0.0 /100WBC Sodium 134 L 132 L (135-145) mmol/L Potassium 4.4 4.0 (3.5-5.0) mmol/L Chloride 95 L 93 L (101-111) mmol/L Carbon Dioxide 31 30 (21-32) mmol/L Anion Gap 8.0 9.0 (6-13) BUN 21 H 19 (6-20) mg/dL Creatinine 1.3 H 1.2 H (0.4-1.0) mg/dL Estimated GFR (MDRD) 39 L 43 L (>89) Glucose 129 H 113 H (70-100) mg/dL Calcium 8.6 8.4 L (8.5-10.3) mg/dL Magnesium 2.0 (1.7-2.8) mg/dL Total Bilirubin 0.7 (0.2-1.0) mg/dL AST 19 (10-42) IU/L ALT 12 (10-60) IU/L Alkaline Phosphatase 30 L (42-121) IU/L Troponin I (<0.49) ng/mL Total Protein 6.8 (6.7-8.2) g/dL Albumin 3.1 L (3.2-5.5) g/dL Globulin 3.7 (2.1-4.2) g/dL Albumin/Globulin Ratio 0.8 L (1.0-2.2) 12/27/17 Range/Units 23:12 WBC (4.8-10.8) x10^3/uL RBC (4.20-5.40) 10^6/uL Hgb (12.0-16.0) g/dL Hct (37.0-47.0) % MCV (81.0-99.0) fL MCH (27.0-31.0) pg MCHC (32.0-36.0) g/dL RDW (12.0-15.0) % Plt Count (130-450) 10^3/uL MPV (7.9-10.8) fL Neut # (Auto) (1.5-6.6) 10^3/uL Lymph # (Auto) (1.5-3.5) 10^3/uL [place] # (Auto) (0.0-1.0) 10^3/uL Eos # (Auto) (0.0-0.7) 10^3/uL Baso # (Auto) (0.0-0.1) 10^3/uL Absolute Nucleated RBC x10^3/uL Nucleated RBC % /100WBC Sodium (135-145) mmol/L Potassium (3.5-5.0) mmol/L Chloride (101-111) mmol/L Carbon Dioxide (21-32) mmol/L Anion Gap (6-13) BUN (6-20) mg/dL Creatinine (0.4-1.0) mg/dL Estimated GFR (MDRD) (>89) Glucose (70-100) mg/dL Calcium (8.5-10.3) mg/dL Magnesium (1.7-2.8) mg/dL Total Bilirubin (0.2-1.0) mg/dL AST (10-42) IU/L ALT (10-60) IU/L Alkaline Phosphatase (42-121) IU/L Troponin I < 0.04 (<0.49) ng/mL Total Protein (6.7-8.2) g/dL Albumin (3.2-5.5) g/dL Globulin (2.1-4.2) g/dL Albumin/Globulin Ratio (1.0-2.2) - Diagnostic Imaging Diagnostic Imaging Results: positive: Final report reviewed Diagnostic Imaging Comments: EXAM: LEFT HIP CT WITHOUT CONTRAST EXAM DATE: 12/27/2017 08:48 PM. CLINICAL HISTORY: Previous left total hip arthroplasty. Status post fall. Unable to rotate left hip. COMPARISON: HIP W/PELVIS 2-3V LT 12/27/2017. TECHNIQUE: Thin-section axial images were acquired of the hip without contrast. Post-processing: Coronal and sagittal reformats. Other: None. In accordance with CT protocol optimization, one or more of the following dose reduction techniques were utilized for this exam: automated exposure control, adjustment of mA and/or KV based on patient size, or use of iterative reconstructive technique. FINDINGS: The bones are osteopenic. Postoperative changes from previous left total hip arthroplasty. The left acetabular cup is intact without evidence of loosening. There is a questionable nondisplaced fracture at the superomedial aspect of the left femoral greater trochanter. The left femoral stem prosthesis is cemented into the left femur. No evidence of loosening of the left femoral prosthetic component. The left hip is externally rotated. No hip dislocation. Musculature: There is severe left gluteus minimus and moderate to severe left gluteus medius fatty atrophy. There is a 6.2 x 3.8 x 2.2 cm hypodense collection within the deep subcutaneous fat between the left gluteus medius and jerrod muscles. Other: The visualized intraperitoneal structures are unremarkable. IMPRESSION: 1. Osteopenia which lowers the sensitivity of detecting fractures by CT. 2. Previous left total hip arthroplasty. No left hip dislocation. Externally rotated left hip. 3. Questionable nondisplaced fracture at the superomedial aspect of the left femoral greater trochanter. 4. Severe left gluteus minimus and moderate to severe left gluteus medius muscle fatty atrophy. There is a 6.2 x 3.8 x 2.2 cm hypodense collection within the deep subcutaneous fat between the left gluteus medius and jerrod muscles. Differential may include a seroma, hematoma, scar tissue. An abscess is thought to be less likely, but cannot be entirely excluded. EXAM: Chest 1 View X-Ray DATE: 12/28/2017 8:27 AM CLINICAL HISTORY: F/U, Hypoxia COMPARISON: CT chest angiogram 12/27/2017. TECHNIQUE: Single view of the chest. FINDINGS: Lung volumes are low. Cardiomegaly with enlargement of the pulmonary arteries is redemonstrated, with apparent left pleural effusion possibly due to enlarged mediastinal silhouette. Increased interstitial markings in the right lung possibly represent pulmonary edema. There is no focal consolidation in the right lung. The upper left lung is clear. No pneumothorax. Postsurgical changes in the right chest are again seen. IMPRESSION: Limited radiograph with cardiomegaly and possible vascular congestion. Possible small left pleural effusion versus cardiomegaly. No focal consolidation in the visualized lungs. ABX Reporting Has patient been on IV antibiotics over the past 48 hours?: No Assessment/Plan - Problem List (1) Fall Impression: The patient says she did not fall, but instead slid off the bed while she was being hoisted up. Despite her claims she has a very large hematoma to her left thigh. Additionally there was a questionable nondisplaced femur fracture. I consulted Dr. Christiana Zarco who saw the patient and feels that this is not a nondisplaced fracture and that the patient may safely weight-bear. There are some large concerns regarding the patient's living arrangement from both her nephew and her POA. Additionally the patient does have a long history of abusing the EMS system, for example calling [facility] to have someone come and find her TV remote or to move her fan. There have reportedly been greater than 50 of these types of calls. This is because she only has daytime caregivers. Despite this patient has been adamant about refusing to go to a facility where she may receive assistance with her ADLs. Qualifiers: Encounter type: initial encounter Qualified Code(s): W19.XXXA - Unspecified fall, initial encounter (2) Glaucoma Impression: Patient has a history of glaucoma and takes brimonidine and latanoprost eyedrops. We will continue these while she is inpatient. (3) Hypertension Impression: The patient has a history of hypertension and takes hydrochlorothiazide, lisinopril, and metoprolol. Despite this, she has been borderline hypertensive during the day. We will continue with this current medication regimen and adjust as necessary. (4) Depression Impression: Patient has a history of depression but says she is not depressed at this time. She takes citalopram at home and will continue this while she is inpatient. (5) Hypothyroidism Impression: Patient has a history of hypothyroidism and takes levothyroxine at home. We will check a TSH and continue on her current dosing of levothyroxine, adjusting as necessary. Qualifiers: Hypothyroidism type: unspecified Qualified Code(s): E03.9 - Hypothyroidism , unspecified
--- NOTE | 2017-12-28 18:54 | PROVIDER PROGRESS NOTE ---
Subjective - Prog Note Date Prog Note Date: 12/28/17 Prog Note Time: 08:53 Objective - Vital Signs/Intake & Output Vital Signs: Vital Signs x48h Temp Pulse Resp BP Pulse Ox 12/28/17 17:08 21 100 12/28/17 16:00 37.1 C 71 22 127/67 99 12/28/17 13:08 36.6 C 85 13 131/76 H 92 Intake & Output: Intake & Output 12/25/17 12/26/17 12/27/17 12/28/17 23:59 23:59 23:59 23:59 Intake Total 2676.667 Output Total 530 Balance 2146.667 - Lab Results Fish Bones: 12/28/17 06:33 12/28/17 06:33 Other Labs: Lab Results x24hrs 12/28/17 12/28/17 12/27/17 Range/Units 06:33 06:33 23:12 WBC 7.5 (4.8-10.8) x10^3/uL RBC 4.03 L (4.20-5.40) 10^6/uL Hgb 13.0 (12.0-16.0) g/dL Hct 39.7 (37.0-47.0) % MCV 98.5 (81.0-99.0) fL MCH 32.3 H (27.0-31.0) pg MCHC 32.8 (32.0-36.0) g/dL RDW 14.0 (12.0-15.0) % Plt Count 169 (130-450) 10^3/uL MPV 8.7 (7.9-10.8) fL Neut # (Auto) 4.8 (1.5-6.6) 10^3/uL Lymph # (Auto) 1.6 (1.5-3.5) 10^3/uL [place] # (Auto) 0.9 (0.0-1.0) 10^3/uL Eos # (Auto) 0.1 (0.0-0.7) 10^3/uL Baso # (Auto) 0.0 (0.0-0.1) 10^3/uL Absolute Nucleated RBC 0.00 x10^3/uL Nucleated RBC % 0.0 /100WBC Sodium 134 L 132 L (135-145) mmol/L Potassium 4.4 4.0 (3.5-5.0) mmol/L Chloride 95 L 93 L (101-111) mmol/L Carbon Dioxide 31 30 (21-32) mmol/L Anion Gap 8.0 9.0 (6-13) BUN 21 H 19 (6-20) mg/dL Creatinine 1.3 H 1.2 H (0.4-1.0) mg/dL Estimated GFR (MDRD) 39 L 43 L (>89) Glucose 129 H 113 H (70-100) mg/dL Calcium 8.6 8.4 L (8.5-10.3) mg/dL Magnesium 2.0 (1.7-2.8) mg/dL Total Bilirubin 0.7 (0.2-1.0) mg/dL AST 19 (10-42) IU/L ALT 12 (10-60) IU/L Alkaline Phosphatase 30 L (42-121) IU/L Troponin I (<0.49) ng/mL Total Protein 6.8 (6.7-8.2) g/dL Albumin 3.1 L (3.2-5.5) g/dL Globulin 3.7 (2.1-4.2) g/dL Albumin/Globulin Ratio 0.8 L (1.0-2.2) 12/27/17 Range/Units 23:12 WBC (4.8-10.8) x10^3/uL RBC (4.20-5.40) 10^6/uL Hgb (12.0-16.0) g/dL Hct (37.0-47.0) % MCV (81.0-99.0) fL MCH (27.0-31.0) pg MCHC (32.0-36.0) g/dL RDW (12.0-15.0) % Plt Count (130-450) 10^3/uL MPV (7.9-10.8) fL Neut # (Auto) (1.5-6.6) 10^3/uL Lymph # (Auto) (1.5-3.5) 10^3/uL [place] # (Auto) (0.0-1.0) 10^3/uL Eos # (Auto) (0.0-0.7) 10^3/uL Baso # (Auto) (0.0-0.1) 10^3/uL Absolute Nucleated RBC x10^3/uL Nucleated RBC % /100WBC Sodium (135-145) mmol/L Potassium (3.5-5.0) mmol/L Chloride (101-111) mmol/L Carbon Dioxide (21-32) mmol/L Anion Gap (6-13) BUN (6-20) mg/dL Creatinine (0.4-1.0) mg/dL Estimated GFR (MDRD) (>89) Glucose (70-100) mg/dL Calcium (8.5-10.3) mg/dL Magnesium (1.7-2.8) mg/dL Total Bilirubin (0.2-1.0) mg/dL AST (10-42) IU/L ALT (10-60) IU/L Alkaline Phosphatase (42-121) IU/L Troponin I < 0.04 (<0.49) ng/mL Total Protein (6.7-8.2) g/dL Albumin (3.2-5.5) g/dL Globulin (2.1-4.2) g/dL Albumin/Globulin Ratio (1.0-2.2) Assessment/Plan - Problem List (1) Fall Qualifiers: Encounter type: initial encounter Qualified Code(s): W19.XXXA - Unspecified fall, initial encounter (5) Hypothyroidism Qualifiers: Hypothyroidism type: unspecified Qualified Code(s): E03.9 - Hypothyroidism , unspecified
[2017-12-28] MEDS: LATANOPROST 0.005% OPHTH DROPS EACHEYE SCH (21:01)
[2017-12-28] MEDS: BRIMONIDINE 0.1% OPHTH DROPS 5 ML EACHEYE SCH (21:01)
[2017-12-29] MEDS: SODIUM CHLORIDE FLUSH 0.9% 10 ML SYRINGE IVP SCH ×3 (01:11→16:29)
[2017-12-29] MEDS: HYDROmorphone 0.5 MG/0.5 ML SYRINGE IVP PRN ×2 (02:44→14:22)
[2017-12-29 05:32] LABS: BASOPHILS % (AUTO) 0.2 %; EOSINOPHILS # (AUTO) 0.2 10^3/uL (0.0-0.7); EOSINOPHILS % (AUTO) 2.2 %; HGB - HEMOGLOBIN 12.5 g/dL (12.0-16.0); LYMPHOCYTES # (AUTO) 3.2 10^3/uL (1.5-3.5); LYMPHOCYTES % (AUTO) 31.8 %; MEAN CORPUSCULAR HEMOGLOBIN 32.5 pg (27.0-31.0); MEAN CORPUSCULAR HGB CONC 32.7 g/dL (32.0-36.0); MEAN CORPUSCULAR VOLUME 99.5 fL (81.0-99.0); MEAN PLATELET VOLUME 8.5 fL (7.9-10.8); MONOCYTES # (AUTO) 1.5 10^3/uL (0.0-1.0); MONOCYTES % (AUTO) 15.1 %; NEUTROPHILS # (AUTO) 5.1 10^3/uL (1.5-6.6); NEUTROPHILS % (AUTO) 50.7 %; PLT - PLATELET COUNT 171 10^3/uL (130-450); RED BLOOD COUNT 3.85 10^6/uL (4.20-5.40); RED CELL DISTRIBUTION WIDTH 14.4 % (12.0-15.0); WHITE BLOOD COUNT 10.2 x10^3/uL (4.8-10.8)
[2017-12-29 05:44] LABS: CALCIUM 8.3 mg/dL (8.5-10.3); CREATININE 1.2 mg/dL (0.4-1.0)
[2017-12-29] MEDS: D5NS W/20 MEQ KCL 1,000 ML IV SCH (05:59)
[2017-12-29] MEDS: LEVOTHYROXINE 75 MCG TABLET PO SCH (06:04)
[2017-12-29] MEDS ORDERED: DEXTROSE 5%-0.9% NACL 1,000 ML IV SCH (08:00)
[2017-12-29] MEDS: CITALOPRAM 10 MG TABLET PO SCH (08:37)
[2017-12-29] MEDS: FAMOTIDINE 20 MG TABLET PO SCH (08:37)
[2017-12-29] MEDS: ASPIRIN EC 325 MG TABLET PO SCH (08:37)
[2017-12-29] MEDS: ENOXAPARIN 40 MG/0.4 ML SYRINGE SUBQ SCH (08:37)
[2017-12-29] MEDS: METOPROLOL SUCCINATE 25 MG TABLET PO SCH (08:37)
[2017-12-29] MEDS: POLYETHYLENE GLYCOL 3350 17 GM PACKET PO SCH (08:38)
[2017-12-29] MEDS: BRIMONIDINE 0.1% OPHTH DROPS 5 ML EACHEYE SCH ×2 (08:38→21:29)
[2017-12-29 11:32] LABS: ABG HCO3 25.1 mmol/L (22.0-26.0); ABG OXYGEN SATURATION 96 % (94-98); ABG PCO2 59 mmHg (34-45); ABG PH 7.25 (7.35-7.45); ABG PO2 87 mmHg (80-100); ABG TCO2 26.9 MMOL/L (21.0-29.0); ALLEN TEST POSITIVE
--- NOTE | 2017-12-29 12:55 | XRAY Report ---
Procedure Date: 12/29/2017 Accession Number: [id number] / [id number] Procedure: XR - Chest 1 View X-Ray CPT Code: 39823 FULL RESULT: EXAM: Chest 1 View X-Ray DATE: 12/29/2017 11:26 AM CLINICAL HISTORY: Worsening hypoxia COMPARISON: None. TECHNIQUE: Single view of the chest. FINDINGS: Markedly widened vascular pedicle with increased interstitial pulmonary markings, consistent with volume overload., Likely small associated pleural effusions. Cardiomegaly is unchanged. No pneumothorax. IMPRESSION: Volume overload. RADIA
[2017-12-29] MEDS ORDERED: FUROSEMIDE 40 MG/4 ML VIAL IVP STA (12:59)
[2017-12-29] MEDS: SODIUM CHLORIDE FLUSH 0.9% 10 ML SYRINGE IVP PRN ×2 (13:08→14:22)
--- NOTE | 2017-12-29 13:14 | PROVIDER PROGRESS NOTE ---
Subjective - Prog Note Date Prog Note Date: 12/29/17 Prog Note Time: 13:12 - Subjective Pt reports feeling: Improved Objective - Vital Signs/Intake & Output Vital Signs: Vital Signs x48h Temp Pulse Pulse Resp BP Pulse Ox 12/29/17 13:00 73 17 104/63 95 12/29/17 12:00 77 15 96/44 L 93 12/29/17 11:50 80 12/29/17 08:00 37.3 C 98 19 125/71 92 Intake & Output: Intake & Output 12/26/17 12/27/17 12/28/17 12/29/17 23:59 23:59 23:59 23:59 Intake Total 3100.000 1490 Output Total 530 510 Balance 2570.000 980 - Objective General Appearance: positive: No acute distress Extremities: positive: Other (Limb lengths clinically equal.) - Lab Results Fish Bones: 12/29/17 04:55 12/29/17 04:55 Other Labs: Lab Results x24hrs 12/29/17 12/29/17 12/29/17 Range/Units 11:24 04:55 04:55 WBC (4.8-10.8) x10^3/uL RBC (4.20-5.40) 10^6/uL Hgb (12.0-16.0) g/dL Hct (37.0-47.0) % MCV (81.0-99.0) fL MCH (27.0-31.0) pg MCHC (32.0-36.0) g/dL RDW (12.0-15.0) % Plt Count (130-450) 10^3/uL MPV (7.9-10.8) fL Neut # (Auto) (1.5-6.6) 10^3/uL Lymph # (Auto) (1.5-3.5) 10^3/uL [place] # (Auto) (0.0-1.0) 10^3/uL Eos # (Auto) (0.0-0.7) 10^3/uL Baso # (Auto) (0.0-0.1) 10^3/uL Absolute Nucleated RBC x10^3/uL Nucleated RBC % /100WBC Bld Gas Analysis Time 1131 Sample Site RIGHT RADIAL ABG pH 7.25 L (7.35-7.45) ABG pCO2 59 H (34-45) mmHg ABG pO2 87 (80-100) mmHg ABG HCO3 25.1 (22.0-26.0) mmol/L ABG Total CO2 26.9 (21.0-29.0) MMOL/L ABG O2 Saturation 96 (94-98) % ABG Oximetry Spot Check 96 % ABG Base Excess -3.0 L (-2.0-3.0) mmol/L Rodrigo Test POSITIVE Respiration Rate 23 b/min O2 Delivery Device OXYMASK O2 Liters/Min 4.50 LPM Sodium 136 (135-145) mmol/L Potassium 5.3 H (3.5-5.0) mmol/L Chloride 99 L (101-111) mmol/L Carbon Dioxide 30 (21-32) mmol/L Anion Gap 7.0 (6-13) BUN 22 H (6-20) mg/dL Creatinine 1.2 H (0.4-1.0) mg/dL Estimated GFR (MDRD) 43 L (>89) Glucose 129 H (70-100) mg/dL Calcium 8.3 L (8.5-10.3) mg/dL TSH 7.61 H (0.34-5.60) uIU/mL 12/29/17 Range/Units 04:55 WBC 10.2 (4.8-10.8) x10^3/uL RBC 3.85 L (4.20-5.40) 10^6/uL Hgb 12.5 (12.0-16.0) g/dL Hct 38.3 (37.0-47.0) % MCV 99.5 H (81.0-99.0) fL MCH 32.5 H (27.0-31.0) pg MCHC 32.7 (32.0-36.0) g/dL RDW 14.4 (12.0-15.0) % Plt Count 171 (130-450) 10^3/uL MPV 8.5 (7.9-10.8) fL Neut # (Auto) 5.1 (1.5-6.6) 10^3/uL Lymph # (Auto) 3.2 (1.5-3.5) 10^3/uL [place] # (Auto) 1.5 H (0.0-1.0) 10^3/uL Eos # (Auto) 0.2 (0.0-0.7) 10^3/uL Baso # (Auto) 0.0 (0.0-0.1) 10^3/uL Absolute Nucleated RBC 0.01 x10^3/uL Nucleated RBC % 0.0 /100WBC Bld Gas Analysis Time Sample Site ABG pH (7.35-7.45) ABG pCO2 (34-45) mmHg ABG pO2 (80-100) mmHg ABG HCO3 (22.0-26.0) mmol/L ABG Total CO2 (21.0-29.0) MMOL/L ABG O2 Saturation (94-98) % ABG Oximetry Spot Check % ABG Base Excess (-2.0-3.0) mmol/L Rodrigo Test Respiration Rate b/min O2 Delivery Device O2 Liters/Min LPM Sodium (135-145) mmol/L Potassium (3.5-5.0) mmol/L Chloride (101-111) mmol/L Carbon Dioxide (21-32) mmol/L Anion Gap (6-13) BUN (6-20) mg/dL Creatinine (0.4-1.0) mg/dL Estimated GFR (MDRD) (>89) Glucose (70-100) mg/dL Calcium (8.5-10.3) mg/dL TSH (0.34-5.60) uIU/mL Assessment/Plan - Problem List (1) Hematoma Impression: Will allow weight bearing as tolerated. Not a surgical candidate. Will sign off. Please call again if needed.
[2017-12-29 13:47] LABS: ABG PH 7.27 (7.35-7.45)
[2017-12-29 13:48] LABS: ABG BASE EXCESS 0.5 mmol/L (-2.0-3.0); ABG HCO3 28.7 mmol/L (22.0-26.0); ABG OXYGEN SATURATION 97 % (94-98); ABG PO2 100 mmHg (80-100); ABG TCO2 30.7 MMOL/L (21.0-29.0); ALLEN TEST POSITIVE
[2017-12-29 13:53] LABS: ABG PCO2 64 mmHg (34-45)
[2017-12-29 17:13] LABS: ABG BASE EXCESS -0.2 mmol/L (-2.0-3.0); ABG HCO3 28.4 mmol/L (22.0-26.0); ABG OXYGEN SATURATION 97 % (94-98); ABG PH 7.25 (7.35-7.45); ABG PO2 101 mmHg (80-100); ABG TCO2 30.4 MMOL/L (21.0-29.0); ALLEN TEST POSITIVE
[2017-12-29] MEDS: SODIUM CHLORIDE 0.9% 1,000 ML IV SCH ×2 (17:15→19:31)
[2017-12-29 17:17] LABS: ABG PCO2 67 mmHg (34-45)
[2017-12-29] MEDS ORDERED: SODIUM CHLORIDE 0.9% 1,000 ML IV ONE (18:11)
[2017-12-29 18:37] LABS: BASOPHILS % (AUTO) 0.4 %; EOSINOPHILS # (AUTO) 0.1 10^3/uL (0.0-0.7); EOSINOPHILS % (AUTO) 0.8 %; HGB - HEMOGLOBIN 11.1 g/dL (12.0-16.0); LYMPHOCYTES # (AUTO) 1.6 10^3/uL (1.5-3.5); MEAN CORPUSCULAR HEMOGLOBIN 32.8 pg (27.0-31.0); MEAN CORPUSCULAR HGB CONC 32.7 g/dL (32.0-36.0); MEAN CORPUSCULAR VOLUME 100.1 fL (81.0-99.0); MEAN PLATELET VOLUME 8.7 fL (7.9-10.8); MONOCYTES # (AUTO) 0.8 10^3/uL (0.0-1.0); MONOCYTES % (AUTO) 9.2 %; NEUTROPHILS # (AUTO) 6.5 10^3/uL (1.5-6.6); NEUTROPHILS % (AUTO) 71.6 %; PLT - PLATELET COUNT 150 10^3/uL (130-450); RED BLOOD COUNT 3.39 10^6/uL (4.20-5.40); RED CELL DISTRIBUTION WIDTH 14.4 % (12.0-15.0); WHITE BLOOD COUNT 9.1 x10^3/uL (4.8-10.8)
[2017-12-29 18:52] LABS: ALBUMIN 2.9 g/dL (3.2-5.5); ALBUMIN/GLOBULIN RATIO 0.8 (1.0-2.2); ALKALINE PHOSPHATASE 29 IU/L (42-121); ALT ALANINE AMINOTRANSFERASE 11 IU/L (10-60); AST ASPARTATE AMINOTRANSFERASE 15 IU/L (10-42); BILIRUBIN,TOTAL 0.7 mg/dL (0.2-1.0); BUN - BLOOD UREA NITROGEN 27 mg/dL (6-20); CALCIUM 7.9 mg/dL (8.5-10.3); CARBON DIOXIDE - CO2 28 mmol/L (21-32); CHLORIDE 99 mmol/L (101-111); CREATININE 1.6 mg/dL (0.4-1.0); GFR - MDRD 31 (>89); GLUCOSE 109 mg/dL (70-100); SODIUM 133 mmol/L (135-145); TOTAL PROTEIN 6.5 g/dL (6.7-8.2)
[2017-12-29 19:10] LABS: VBG PH 7.331 (7.31-7.41)
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
[2017-12-29] MEDS: MORPHINE 2 MG/ML SYRINGE IVP PRN (20:07)
[2017-12-29] MEDS: LORazepam 2 MG/ML VIAL IVP PRN (20:08)
[2017-12-29] MEDS: CHLORHEXIDINE GLUCONATE 15 ML UDC PO SCH (21:29)
[2017-12-29] MEDS: LATANOPROST 0.005% OPHTH DROPS EACHEYE SCH (21:29)
[2017-12-30] MEDS: SODIUM CHLORIDE FLUSH 0.9% 10 ML SYRINGE IVP SCH ×3 (00:41→16:24)
[2017-12-30] MEDS: LORazepam 2 MG/ML VIAL IVP PRN ×4 (00:41→22:12)
[2017-12-30] MEDS: SODIUM CHLORIDE 0.9% 1,000 ML IV SCH ×3 (03:33→19:43)
[2017-12-30 04:42] LABS: BASOPHILS % (AUTO) 0.3 %; EOSINOPHILS # (AUTO) 0.1 10^3/uL (0.0-0.7); EOSINOPHILS % (AUTO) 0.9 %; HGB - HEMOGLOBIN 11.5 g/dL (12.0-16.0); LYMPHOCYTES # (AUTO) 2.5 10^3/uL (1.5-3.5); LYMPHOCYTES % (AUTO) 27.4 %; MEAN CORPUSCULAR HEMOGLOBIN 32.5 pg (27.0-31.0); MEAN CORPUSCULAR HGB CONC 32.2 g/dL (32.0-36.0); MEAN CORPUSCULAR VOLUME 101.1 fL (81.0-99.0); MEAN PLATELET VOLUME 8.7 fL (7.9-10.8); MONOCYTES # (AUTO) 1.2 10^3/uL (0.0-1.0); MONOCYTES % (AUTO) 12.5 %; NEUTROPHILS # (AUTO) 5.4 10^3/uL (1.5-6.6); NEUTROPHILS % (AUTO) 58.9 %; PLT - PLATELET COUNT 145 10^3/uL (130-450); RED BLOOD COUNT 3.54 10^6/uL (4.20-5.40); RED CELL DISTRIBUTION WIDTH 14.1 % (12.0-15.0); WHITE BLOOD COUNT 9.2 x10^3/uL (4.8-10.8)
[2017-12-30 04:49] LABS: CALCIUM 7.9 mg/dL (8.5-10.3); CREATININE 1.3 mg/dL (0.4-1.0); MAGNESIUM 1.9 mg/dL (1.7-2.8)
[2017-12-30 05:38] LABS: ABG PH 7.28 (7.35-7.45)
[2017-12-30 05:39] LABS: ABG BASE EXCESS 0.9 mmol/L (-2.0-3.0); ABG HCO3 28.7 mmol/L (22.0-26.0); ABG OXYGEN SATURATION 96 % (94-98); ABG PO2 87 mmHg (80-100); ABG TCO2 30.6 MMOL/L (21.0-29.0); ALLEN TEST POSITIVE
[2017-12-30] MEDS: MORPHINE 2 MG/ML SYRINGE IVP PRN ×3 (05:39→22:33)
[2017-12-30 05:40] LABS: ABG PCO2 62 mmHg (34-45)
[2017-12-30] MEDS: PANTOPRAZOLE 40 MG VIAL IVP SCH (06:18)
[2017-12-30] MEDS: LEVOTHYROXINE 75 MCG TABLET PO SCH (06:18)
[2017-12-30] MEDS ORDERED: FUROSEMIDE 40 MG/4 ML VIAL IVP SCH (07:45)
[2017-12-30] MEDS: CHLORHEXIDINE GLUCONATE 15 ML UDC PO SCH ×2 (08:30→22:19)
[2017-12-30] MEDS: DOCUSATE SODIUM 250 MG CAPSULE PO SCH (08:30)
[2017-12-30] MEDS: ASPIRIN EC 325 MG TABLET PO SCH (08:30)
[2017-12-30] MEDS: CITALOPRAM 10 MG TABLET PO SCH (08:30)
[2017-12-30] MEDS: SENNA 8.6 MG TABLET PO SCH (08:31)
[2017-12-30] MEDS: METOPROLOL SUCCINATE 25 MG TABLET PO SCH (08:31)
[2017-12-30] MEDS: FAMOTIDINE 20 MG TABLET PO SCH (08:31)
[2017-12-30] MEDS: POLYETHYLENE GLYCOL 3350 17 GM PACKET PO SCH (08:31)
[2017-12-30] MEDS: ENOXAPARIN 40 MG/0.4 ML SYRINGE SUBQ SCH (08:31)
[2017-12-30] MEDS: BRIMONIDINE 0.1% OPHTH DROPS 5 ML EACHEYE SCH ×2 (08:32→20:36)
[2017-12-30] MEDS: HYDROcod/ACETAM 5/325 MG TABLET PO PRN (09:21)
--- NOTE | 2017-12-30 15:38 | CT Report ---
Procedure Date: 12/30/2017 Accession Number: [id number] / [id number] Procedure: CT - Head W/O CPT Code: FULL RESULT: EXAM: Head W/O DATE: 12/30/2017 2:08 PM CLINICAL HISTORY: Altered mental status COMPARISON: 12/27/2017. TECHNIQUE: Multiaxial CT images were obtained from the foramen magnum to the vertex. IV contrast: None. Reformats: Coronal. In accordance with CT protocol optimization, one or more of the following dose reduction techniques were utilized for this exam: automated exposure control, adjustment of mA and/or KV based on patient size, or use of iterative reconstructive technique. FINDINGS: Parenchyma: No intraparenchymal hemorrhage. No evidence of mass, midline shift, or CT findings of infarction. Mirza-white differentiation is distinct. Extraaxial Spaces: Bifrontal prominent CSF spaces greater than expected for prominence of the ventricles, possible bifrontal subdural hygroma. No acute or subacute extra-axial collection. Ventricles: Normal in size and position. Sinuses: Imaged paranasal sinuses, orbits, and mastoids show no significant abnormality. Bones: No evidence of fracture or calvarial defect. Other: None. IMPRESSION: Stable exam. There is no acute or subacute subdural hematoma. No herniation/significant mass effect. [facility]
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
[2017-12-30] MEDS ORDERED: PIPERACILLIN/TAZOBACTAM 3.375 GM in SODIUM CHLORIDE 0.9% MINIBAG 100 ML IV SCH (20:00)
[2017-12-30] MEDS ORDERED: levoFLOXacin 750 MG/150 ML 750 MG/150 ML BAG IV SCH (20:00)
[2017-12-30] MEDS ORDERED: PIPERACILLIN/TAZOBACTAM 4.5 GM in SODIUM CHLORIDE 0.9% MINIBAG 100 ML IV SCH (20:00)
[2017-12-30] MEDS: LATANOPROST 0.005% OPHTH DROPS EACHEYE SCH (20:36)
[2017-12-30] MEDS ORDERED: PHENOL THROAT SPRAY 177 ML MM PRN (21:51)
[2017-12-30] MEDS: ACETAMINOPHEN 1,000 MG/100 ML 100 ML IV PRN (22:08)
[2017-12-30] MEDS: PIPERACILLIN/TAZOBACTAM 3.375 GM in SODIUM CHLORIDE 0.9% MINIBAG 100 ML IV SCH (22:26)
[2017-12-31] MEDS: SODIUM CHLORIDE FLUSH 0.9% 10 ML SYRINGE IVP SCH ×3 (01:50→17:12)
[2017-12-31] MEDS: MORPHINE 2 MG/ML SYRINGE IVP PRN (02:41)
[2017-12-31] MEDS: SODIUM CHLORIDE FLUSH 0.9% 10 ML SYRINGE IVP PRN ×3 (02:42→22:53)
[2017-12-31] MEDS: LORazepam 2 MG/ML VIAL IVP PRN ×2 (03:10→10:24)
[2017-12-31] MEDS: PIPERACILLIN/TAZOBACTAM 3.375 GM in SODIUM CHLORIDE 0.9% MINIBAG 100 ML IV SCH ×4 (04:08→22:11)
[2017-12-31 04:56] LABS: BASOPHILS % (AUTO) 0.3 %; EOSINOPHILS # (AUTO) 0.1 10^3/uL (0.0-0.7); EOSINOPHILS % (AUTO) 0.7 %; HGB - HEMOGLOBIN 10.5 g/dL (12.0-16.0); LYMPHOCYTES # (AUTO) 1.4 10^3/uL (1.5-3.5); LYMPHOCYTES % (AUTO) 19.5 %; MEAN CORPUSCULAR HEMOGLOBIN 32.3 pg (27.0-31.0); MEAN CORPUSCULAR HGB CONC 32.6 g/dL (32.0-36.0); MEAN CORPUSCULAR VOLUME 99.2 fL (81.0-99.0); MEAN PLATELET VOLUME 8.6 fL (7.9-10.8); MONOCYTES % (AUTO) 13.8 %; NEUTROPHILS # (AUTO) 4.7 10^3/uL (1.5-6.6); NEUTROPHILS % (AUTO) 65.7 %; PLT - PLATELET COUNT 156 10^3/uL (130-450); RED BLOOD COUNT 3.25 10^6/uL (4.20-5.40); RED CELL DISTRIBUTION WIDTH 13.8 % (12.0-15.0); WHITE BLOOD COUNT 7.2 x10^3/uL (4.8-10.8)
[2017-12-31 05:04] LABS: ALBUMIN 2.9 g/dL (3.2-5.5); CALCIUM 7.9 mg/dL (8.5-10.3); MAGNESIUM 1.9 mg/dL (1.7-2.8); PHOSPHORUS 2.8 mg/dL (2.5-4.6)
[2017-12-31] MEDS: LEVOTHYROXINE 100 MCG TABLET PO SCH (06:32)
[2017-12-31] MEDS: LEVOTHYROXINE 75 MCG TABLET PO SCH (06:32)
[2017-12-31] MEDS: PANTOPRAZOLE 40 MG VIAL IVP SCH (06:40)
[2017-12-31] MEDS: SODIUM CHLORIDE 0.9% 1,000 ML IV SCH ×2 (06:41→17:11)
[2017-12-31] MEDS ORDERED: FUROSEMIDE 40 MG/4 ML VIAL IVP STA (07:57)
[2017-12-31] MEDS: ASPIRIN EC 325 MG TABLET PO SCH (08:09)
[2017-12-31] MEDS: CITALOPRAM 10 MG TABLET PO SCH (08:09)
[2017-12-31] MEDS: CHLORHEXIDINE GLUCONATE 15 ML UDC PO SCH ×2 (08:09→21:05)
[2017-12-31] MEDS: ENOXAPARIN 40 MG/0.4 ML SYRINGE SUBQ SCH (08:09)
[2017-12-31] MEDS: DOCUSATE SODIUM 250 MG CAPSULE PO SCH (08:09)
[2017-12-31] MEDS: METOPROLOL SUCCINATE 25 MG TABLET PO SCH (08:10)
[2017-12-31] MEDS: FAMOTIDINE 20 MG TABLET PO SCH (08:10)
[2017-12-31] MEDS: SENNA 8.6 MG TABLET PO SCH (08:12)
[2017-12-31] MEDS: POLYETHYLENE GLYCOL 3350 17 GM PACKET PO SCH (08:12)
[2017-12-31] MEDS: ACETAMINOPHEN 1,000 MG/100 ML 100 ML IV PRN (08:13)
[2017-12-31] MEDS: BRIMONIDINE 0.1% OPHTH DROPS 5 ML EACHEYE SCH ×2 (08:14→21:03)
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
[2017-12-31] MEDS ORDERED: MAGNESIUM CITRATE 296 ML BOTTLE PO ONE (17:32)
[2017-12-31] MEDS: LATANOPROST 0.005% OPHTH DROPS EACHEYE SCH (21:07)
[2017-12-31] MEDS ORDERED: A & D OINTMENT 5 GM PACKET TOP PRN (22:23)
[2018-01-01] MEDS: ZINC OXIDE 20% OINT 28.35 GM TUBE TOP PRN (00:24)
[2018-01-01] MEDS: ACETAMINOPHEN 1,000 MG/100 ML 100 ML IV PRN ×3 (02:11→19:26)
[2018-01-01] MEDS: SODIUM CHLORIDE FLUSH 0.9% 10 ML SYRINGE IVP SCH ×4 (02:32→23:29)
[2018-01-01] MEDS: LORazepam 2 MG/ML VIAL IVP PRN (03:15)
[2018-01-01] MEDS: SODIUM CHLORIDE FLUSH 0.9% 10 ML SYRINGE IVP PRN ×3 (03:17→11:34)
[2018-01-01 05:01] LABS: BASOPHILS % (AUTO) 0.1 %; EOSINOPHILS # (AUTO) 0.1 10^3/uL (0.0-0.7); EOSINOPHILS % (AUTO) 1.5 %; HGB - HEMOGLOBIN 10.8 g/dL (12.0-16.0); LYMPHOCYTES # (AUTO) 1.5 10^3/uL (1.5-3.5); LYMPHOCYTES % (AUTO) 21.5 %; MEAN CORPUSCULAR HEMOGLOBIN 32.5 pg (27.0-31.0); MEAN CORPUSCULAR HGB CONC 33.1 g/dL (32.0-36.0); MEAN CORPUSCULAR VOLUME 98.2 fL (81.0-99.0); MEAN PLATELET VOLUME 8.5 fL (7.9-10.8); MONOCYTES # (AUTO) 0.9 10^3/uL (0.0-1.0); MONOCYTES % (AUTO) 12.6 %; NEUTROPHILS # (AUTO) 4.6 10^3/uL (1.5-6.6); NEUTROPHILS % (AUTO) 64.3 %; PLT - PLATELET COUNT 163 10^3/uL (130-450); RED BLOOD COUNT 3.34 10^6/uL (4.20-5.40); RED CELL DISTRIBUTION WIDTH 13.8 % (12.0-15.0); WHITE BLOOD COUNT 7.2 x10^3/uL (4.8-10.8)
[2018-01-01 05:11] LABS: ALBUMIN 2.9 g/dL (3.2-5.5); CALCIUM 8.2 mg/dL (8.5-10.3); CREATININE 1.1 mg/dL (0.4-1.0); PHOSPHORUS 2.2 mg/dL (2.5-4.6)
[2018-01-01] MEDS: PIPERACILLIN/TAZOBACTAM 3.375 GM in SODIUM CHLORIDE 0.9% MINIBAG 100 ML IV SCH ×2 (05:16→10:13)
[2018-01-01] MEDS: LEVOTHYROXINE 75 MCG TABLET PO SCH (06:34)
[2018-01-01] MEDS: LEVOTHYROXINE 100 MCG TABLET PO SCH (06:34)
[2018-01-01] MEDS: PANTOPRAZOLE 40 MG VIAL IVP SCH (06:40)
[2018-01-01] MEDS ORDERED: FUROSEMIDE 40 MG/4 ML VIAL IVP STA (07:51)
[2018-01-01] MEDS: POLYETHYLENE GLYCOL 3350 17 GM PACKET PO SCH (07:52)
[2018-01-01] MEDS: NEUTRA-PHOS 250 MG TABLET PO SCH ×2 (09:00→11:35)
[2018-01-01] MEDS: METOPROLOL SUCCINATE 25 MG TABLET PO SCH (09:02)
[2018-01-01] MEDS: ASPIRIN EC 325 MG TABLET PO SCH (09:04)
[2018-01-01] MEDS: FAMOTIDINE 20 MG TABLET PO SCH (09:05)
[2018-01-01] MEDS: CITALOPRAM 10 MG TABLET PO SCH (09:05)
[2018-01-01] MEDS: DOCUSATE SODIUM 250 MG CAPSULE PO SCH (09:17)
[2018-01-01] MEDS: SENNA 8.6 MG TABLET PO SCH (09:26)
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
[2018-01-01] MEDS: ENOXAPARIN 40 MG/0.4 ML SYRINGE SUBQ SCH (10:55)
[2018-01-01] MEDS: CHLORHEXIDINE GLUCONATE 15 ML UDC PO SCH ×2 (11:29→21:09)
[2018-01-01] MEDS: BRIMONIDINE 0.1% OPHTH DROPS 5 ML EACHEYE SCH ×2 (11:42→21:10)
[2018-01-01] MEDS: LATANOPROST 0.005% OPHTH DROPS EACHEYE SCH (21:10)
[2018-01-02 04:59] LABS: BASOPHILS % (AUTO) 0.4 %; EOSINOPHILS # (AUTO) 0.1 10^3/uL (0.0-0.7); EOSINOPHILS % (AUTO) 2.1 %; HGB - HEMOGLOBIN 11.4 g/dL (12.0-16.0); LYMPHOCYTES # (AUTO) 1.9 10^3/uL (1.5-3.5); LYMPHOCYTES % (AUTO) 30.2 %; MEAN CORPUSCULAR HGB CONC 33.6 g/dL (32.0-36.0); MEAN CORPUSCULAR VOLUME 98.2 fL (81.0-99.0); MEAN PLATELET VOLUME 8.6 fL (7.9-10.8); MONOCYTES # (AUTO) 0.8 10^3/uL (0.0-1.0); MONOCYTES % (AUTO) 12.5 %; NEUTROPHILS # (AUTO) 3.4 10^3/uL (1.5-6.6); NEUTROPHILS % (AUTO) 54.8 %; PLT - PLATELET COUNT 178 10^3/uL (130-450); RED BLOOD COUNT 3.46 10^6/uL (4.20-5.40); RED CELL DISTRIBUTION WIDTH 13.7 % (12.0-15.0); WHITE BLOOD COUNT 6.2 x10^3/uL (4.8-10.8)
[2018-01-02 05:01] LABS: CALCIUM 8.3 mg/dL (8.5-10.3)
[2018-01-02] MEDS: LEVOTHYROXINE 100 MCG TABLET PO SCH (06:37)
[2018-01-02] MEDS: PANTOPRAZOLE 40 MG VIAL IVP SCH (06:37)
[2018-01-02] MEDS: LEVOTHYROXINE 75 MCG TABLET PO SCH (06:37)
[2018-01-02] MEDS: SODIUM CHLORIDE FLUSH 0.9% 10 ML SYRINGE IVP PRN (06:43)
[2018-01-02] MEDS: METOPROLOL SUCCINATE 25 MG TABLET PO SCH (09:09)
[2018-01-02] MEDS: ASPIRIN EC 325 MG TABLET PO SCH (09:09)
[2018-01-02] MEDS: FAMOTIDINE 20 MG TABLET PO SCH (09:09)
[2018-01-02] MEDS: CITALOPRAM 10 MG TABLET PO SCH (09:09)
[2018-01-02] MEDS: SODIUM CHLORIDE FLUSH 0.9% 10 ML SYRINGE IVP SCH ×4 (09:10→22:30)
[2018-01-02] MEDS: DOCUSATE SODIUM 250 MG CAPSULE PO SCH (09:10)
[2018-01-02] MEDS: CHLORHEXIDINE GLUCONATE 15 ML UDC PO SCH ×2 (09:10→20:32)
[2018-01-02] MEDS: ENOXAPARIN 40 MG/0.4 ML SYRINGE SUBQ SCH (09:10)
[2018-01-02] MEDS: BRIMONIDINE 0.1% OPHTH DROPS 5 ML EACHEYE SCH ×2 (09:10→20:32)
[2018-01-02] MEDS: POLYETHYLENE GLYCOL 3350 17 GM PACKET PO SCH (09:11)
[2018-01-02] MEDS: SENNA 8.6 MG TABLET PO SCH (09:11)
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
[2018-01-02] MEDS ORDERED: FUROSEMIDE 40 MG/4 ML VIAL IVP STA (15:00)
[2018-01-02] MEDS: LORazepam 2 MG/ML VIAL IVP PRN ×2 (18:59→22:30)
[2018-01-02] MEDS: LATANOPROST 0.005% OPHTH DROPS EACHEYE SCH (20:32)
[2018-01-03] MEDS: SODIUM CHLORIDE FLUSH 0.9% 10 ML SYRINGE IVP SCH ×3 (00:41→21:49)
[2018-01-03] MEDS: SODIUM CHLORIDE FLUSH 0.9% 10 ML SYRINGE IVP PRN ×2 (01:29→06:28)
[2018-01-03] MEDS: LORazepam 2 MG/ML VIAL IVP PRN ×2 (01:29→22:52)
[2018-01-03] MEDS: PANTOPRAZOLE 40 MG VIAL IVP SCH (06:27)
[2018-01-03] MEDS: LEVOTHYROXINE 100 MCG TABLET PO SCH (06:28)
[2018-01-03] MEDS: LEVOTHYROXINE 75 MCG TABLET PO SCH (06:28)
[2018-01-03] MEDS ORDERED: FUROSEMIDE 40 MG/4 ML VIAL IVP STA (08:02)
[2018-01-03] MEDS: METOPROLOL SUCCINATE 50 MG TABLET PO SCH (08:44)
[2018-01-03] MEDS: ASPIRIN EC 325 MG TABLET PO SCH (08:44)
[2018-01-03] MEDS: LISINOPRIL 20 MG TABLET PO SCH (08:44)
[2018-01-03] MEDS: FAMOTIDINE 20 MG TABLET PO SCH (08:44)
[2018-01-03] MEDS: DOCUSATE SODIUM 250 MG CAPSULE PO SCH (08:44)
[2018-01-03] MEDS: CHLORHEXIDINE GLUCONATE 15 ML UDC PO SCH ×2 (08:44→20:25)
[2018-01-03] MEDS: CITALOPRAM 10 MG TABLET PO SCH (08:44)
[2018-01-03] MEDS: hydroCHLOROthiazide 25 MG TABLET PO SCH (08:44)
[2018-01-03] MEDS: POLYETHYLENE GLYCOL 3350 17 GM PACKET PO SCH (08:45)
[2018-01-03] MEDS: ENOXAPARIN 40 MG/0.4 ML SYRINGE SUBQ SCH (08:45)
[2018-01-03] MEDS: SENNA 8.6 MG TABLET PO SCH (08:45)
[2018-01-03] MEDS: BRIMONIDINE 0.1% OPHTH DROPS 5 ML EACHEYE SCH ×2 (08:46→20:25)
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
--- NOTE | 2018-01-03 12:24 | XRAY Report ---
Procedure Date: 01/03/2018 Accession Number: [id number] / [id number] Procedure: XR - Chest 1 View X-Ray CPT Code: 39257 FULL RESULT: EXAM: CHEST RADIOGRAPHY EXAM DATE: 01/03/2018 09:30 AM HISTORY: COMMENTS: persistent hypoxia : No PRIORS: 1V CXR 12/29/17, 12/28/17 CT Angio 12/27/17. COMPARISON: 12/29/2017 TECHNIQUE: SINGLE AP VIEW FINDINGS IMPRESSION: Mild central edema and cardiomegaly. No significant change from prior. RADIA
[2018-01-03] MEDS ORDERED: MAGNESIUM HYDROXIDE 2,400 MG/30 ML UDC PO ONE (18:00)
[2018-01-03] MEDS: LATANOPROST 0.005% OPHTH DROPS EACHEYE SCH (20:25)
[2018-01-04] MEDS: LORazepam 2 MG/ML VIAL IVP PRN ×2 (03:09→21:13)
[2018-01-04] MEDS: SODIUM CHLORIDE FLUSH 0.9% 10 ML SYRINGE IVP SCH ×3 (03:11→21:13)
[2018-01-04] MEDS: ZINC OXIDE 20% OINT 28.35 GM TUBE TOP PRN ×2 (03:23→06:43)
[2018-01-04 05:52] LABS: BASOPHILS % (AUTO) 0.4 %; EOSINOPHILS # (AUTO) 0.1 10^3/uL (0.0-0.7); EOSINOPHILS % (AUTO) 1.8 %; HGB - HEMOGLOBIN 11.8 g/dL (12.0-16.0); LYMPHOCYTES % (AUTO) 26.8 %; MEAN CORPUSCULAR HEMOGLOBIN 32.2 pg (27.0-31.0); MEAN CORPUSCULAR HGB CONC 33.1 g/dL (32.0-36.0); MEAN CORPUSCULAR VOLUME 97.4 fL (81.0-99.0); MEAN PLATELET VOLUME 7.7 fL (7.9-10.8); MONOCYTES # (AUTO) 0.8 10^3/uL (0.0-1.0); MONOCYTES % (AUTO) 10.3 %; NEUTROPHILS # (AUTO) 4.5 10^3/uL (1.5-6.6); NEUTROPHILS % (AUTO) 60.7 %; PLT - PLATELET COUNT 228 10^3/uL (130-450); RED BLOOD COUNT 3.68 10^6/uL (4.20-5.40); RED CELL DISTRIBUTION WIDTH 14.1 % (12.0-15.0); WHITE BLOOD COUNT 7.4 x10^3/uL (4.8-10.8)
[2018-01-04 06:05] LABS: ALBUMIN 3.2 g/dL (3.2-5.5); ALBUMIN/GLOBULIN RATIO 0.9 (1.0-2.2); ALKALINE PHOSPHATASE 29 IU/L (42-121); ALT ALANINE AMINOTRANSFERASE 20 IU/L (10-60); AST ASPARTATE AMINOTRANSFERASE 28 IU/L (10-42); BILIRUBIN,TOTAL 0.5 mg/dL (0.2-1.0); BUN - BLOOD UREA NITROGEN 17 mg/dL (6-20); CARBON DIOXIDE - CO2 37 mmol/L (21-32); CHLORIDE 93 mmol/L (101-111); GFR - MDRD 53 (>89); GLUCOSE 114 mg/dL (70-100); MAGNESIUM 1.9 mg/dL (1.7-2.8); PHOSPHORUS 3.2 mg/dL (2.5-4.6); SODIUM 139 mmol/L (135-145); TOTAL PROTEIN 6.9 g/dL (6.7-8.2)
[2018-01-04] MEDS: LEVOTHYROXINE 100 MCG TABLET PO SCH (06:39)
[2018-01-04] MEDS: PANTOPRAZOLE 40 MG VIAL IVP SCH (06:39)
[2018-01-04] MEDS: SODIUM CHLORIDE FLUSH 0.9% 10 ML SYRINGE IVP PRN (06:39)
[2018-01-04] MEDS: LEVOTHYROXINE 75 MCG TABLET PO SCH (06:39)
[2018-01-04] MEDS: ENOXAPARIN 40 MG/0.4 ML SYRINGE SUBQ SCH (09:03)
[2018-01-04] MEDS: POLYETHYLENE GLYCOL 3350 17 GM PACKET PO SCH (09:03)
[2018-01-04] MEDS: SENNA 8.6 MG TABLET PO SCH (09:04)
[2018-01-04] MEDS: LISINOPRIL 20 MG TABLET PO SCH (09:04)
[2018-01-04] MEDS: METOPROLOL SUCCINATE 50 MG TABLET PO SCH (09:04)
[2018-01-04] MEDS: CHLORHEXIDINE GLUCONATE 15 ML UDC PO SCH ×2 (09:04→21:13)
[2018-01-04] MEDS: ASPIRIN EC 325 MG TABLET PO SCH (09:04)
[2018-01-04] MEDS: HYDROcod/ACETAM 5/325 MG TABLET PO PRN ×3 (09:04→21:13)
[2018-01-04] MEDS: hydroCHLOROthiazide 25 MG TABLET PO SCH (09:04)
[2018-01-04] MEDS: FAMOTIDINE 20 MG TABLET PO SCH (09:04)
[2018-01-04] MEDS: CITALOPRAM 10 MG TABLET PO SCH (09:04)
[2018-01-04] MEDS: DOCUSATE SODIUM 250 MG CAPSULE PO SCH (09:04)
[2018-01-04] MEDS: BRIMONIDINE 0.1% OPHTH DROPS 5 ML EACHEYE SCH ×2 (09:06→21:14)
--- NOTE | 2018-01-04 14:41 | CONSULTATION NOTE ---
Palliative Care Consultation - Referral Referring Provider: Rick Garza MD Time of Visit: 7830-1267: [id number] Referral setting: Hospitalized patient Referral Reason: Dementia/Pulmonary HTN/Bedbound status/Goals of care - Information Sources Records reviewed: RN notes reviewed, Previous records reviewed History/Review of Systems obtained from: Patient, Family (spoke with Jimmy Szymanski DPOA/medical/financial; Jeane Esparza, Dr. 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 She has frequent falls, she does have some caregiving assistance during the day, occasionally can transfer to the commode but has been having fluctuating mood and cognitive status. There has been concerns for quite a while now about patient's ability to be able to manage safely at home, she has had several APS referrals, and does call the EMS service several times a month for an appropriate requests. Her over 15 years ago, she does not have any children, but has many friends and people she "has adopted". Her DPOA Jimmy Szymanski is her best friend's son whom she has known since . Patient does admit that "everything is all mixed up". Patient is unable to tell me why she is in the hospital, she has very little understanding or insight into her current situation. She does not know what his transpired or what is wrong with her. She does know she is in [place], she does not know how old she is, she is able to describe fairly in detail her home which she does want to return home to. During my visit, she did need to get off the bedpan, she has no bed mobility, she is very difficult to move without causing increased pain or distress in her left shoulder or her leg. When asked how she was going to manage at home, she said she walks and transfers to the commode, she does not need a hospital bed she likes her own bed , and was upset she has sold her hospital beds when her . Did challenge her that she was going to need 24-hour care, but she is unable to verbalize why she needs increased assistance are wet might be the problem that she needs 24-hour care. Medical/Surgical History - Past Medical History Cardiovascular: reports: Hypertension Respiratory: reports: Other (pulmonary HTN) Neuro: CVA (left hemiparesis 2012; followed by extended care at [facility] for 100 days) Neuro: reports: Dementia, CVA Endocrine/Autoimmune: reports: HyPOthyroidism GI: reports: None : reports: Incontinence HEENT: reports: Glaucoma, Macular degeneration Psych: reports: Anxiety Musculoskeletal: reports: Other (left arm flacid/shoulder without ROM; left leg movement in foot only) Derm: reports: None MRSA Hx?: No - Past Surgical History Ortho: reports: Hip replacement (bilateral) - Substance History Use: Uses substance without health or social issues: Tobacco (unknown) Social History - Living Situation Living arrangement: At home Living Situation: Alone, With caregiver(s) (daytime private caregiviers; has fired many of them and forgets) Support System: Jimmy trys to oversee care; Azam who lives nearby helps with writing checks etc as well; but Medical DPOA is deferred per Azam to Jimmy. Patient reports she is from [facility], moved here 25 years ago. She is [place] and a [place]. Family History - Family History Family History: Mother: , Father: Medications/Allergies - Medications Active Medication List: Active Medications Acetaminophen (Tylenol) 650 mg PO Q4HR PRN PRN Reason: Pain or Fever > 38C (100.4F) Last Admin: 12/28/17 13:15 Dose: 650 mg Hydrocodone Bitart/Acetaminophen ([place] 5/325) 1 tab PO Q4HR PRN PRN Reason: Pain 5 to 7 Last Admin: 01/04/18 09:04 Dose: 1 tab Aspirin (Ecotrin) 325 mg PO DAILY [facility] Last Admin: 01/04/18 09:04 Dose: 325 mg Chlorhexidine Gluconate (Peridex) 15 ml PO BID [facility] Last Admin: 01/04/18 09:04 Dose: 15 ml Citalopram Hydrobromide (Celexa) 10 mg PO DAILY [facility] Last Admin: 01/04/18 09:04 Dose: 10 mg Docusate Sodium (Colace 250mg Capsule) 250 - 500 mg PO DAILY [facility] Last Admin: 01/04/18 09:04 Dose: 250 mg Enoxaparin Sodium (Lovenox) 40 mg SUBQ DAILY [facility] Last Admin: 01/04/18 09:03 Dose: 40 mg Famotidine (Pepcid) 20 mg PO DAILY [facility] Last Admin: 01/04/18 09:04 Dose: 20 mg Hydrochlorothiazide (Hydrodiuril) 25 mg PO DAILY [facility] Last Admin: 01/04/18 09:04 Dose: 25 mg Acetaminophen (Ofirmev) 100 mls @ 400 mls/hr IV Q6HR PRN PRN Reason: PAIN Last Infusion: 01/01/18 19:42 Dose: Infused Levothyroxine Sodium (Synthroid) 100 mcg PO QDAC [facility] Last Admin: 01/04/18 06:39 Dose: 100 mcg Levothyroxine Sodium (Synthroid) 75 mcg PO QDAC [facility] Last Admin: 01/04/18 06:39 Dose: 75 mcg Lisinopril (Zestril) 40 mg PO DAILY [facility] Last Admin: 01/04/18 09:04 Dose: 40 mg Lorazepam (Ativan Inj (Vial)) 0.5 mg IVP Q2H PRN PRN Reason: Anxiety Last Admin: 01/04/18 03:09 Dose: 0.5 mg Metoprolol Succinate (Toprol Xl) 50 mg PO DAILY [facility] Last Admin: 01/04/18 09:04 Dose: 50 mg Morphine Sulfate (Morphine) 1 mg IVP Q2H PRN PRN Reason: PAIN Last Admin: 12/31/17 02:41 Dose: 1 mg Multi-Ingredient Ointment (Zinc Oxide) 1 applic TOP PRN PRN PRN Reason: Skin Care Last Admin: 01/04/18 06:43 Dose: 1 applic Naproxen (Naprosyn) 250 mg PO DAILY PRN PRN Reason: PAIN Last Admin: 01/04/18 06:40 Dose: 250 mg Pantoprazole Sodium (Protonix) 40 mg IVP QDAC [facility] Last Admin: 01/04/18 06:39 Dose: 40 mg Brimonidine 0.1% (Ophth Drops 5 Ml) 1 each EACHEYE BID [facility] Last Admin: 01/04/18 09:06 Dose: 1 each Latanoprost 0.005% (Ophth Drops) 1 each EACHEYE QPM [facility] Last Admin: 01/03/18 20:25 Dose: 1 each Phenol/Menthol (Chloraseptic) 2 sprays MM Q2HR PRN PRN Reason: Throat Pain Polyethylene Glycol (Miralax) 17 gm PO DAILY [facility] Last Admin: 01/04/18 09:03 Dose: 17 gm Senna (Senokot) 8.6 - 17.2 mg PO DAILY [facility] Last Admin: 01/04/18 09:04 Dose: 8.6 mg Sodium Chloride (Normal Saline Flush 0.9%) 10 ml IVP PRN PRN PRN Reason: NEEDED PER PROVIDER ORDERS Last Admin: 01/04/18 06:39 Dose: 10 ml Sodium Chloride (Normal Saline Flush 0.9%) 10 ml IVP 0100,0900,1700 [facility] Last Admin: 01/04/18 09:04 Dose: 10 ml Vitamin A/Vitamin D (Vitamin A & D Ointment) 1 applic TOP PRN PRN PRN Reason: Skin Care Citalopram Hydrobromide [Celexa] 20 mg PO DAILY 08/02/15 Clopidogrel [Plavix] 75 mg PO DAILY 08/02/15 Hydrochlorothiazide 25 mg PO DAILY 08/02/15 Levothyroxine [Synthroid] 150 mcg PO QDAC 08/02/15 Lisinopril 40 mg PO DAILY 08/02/15 Brimonidine 0.1% Ophth Drops [Alphagan P 0.1% Ophth Drops] 1 drops EACHEYE BID 12/28/17 Latanoprost 0.005% Ophth Drops [Xalatan Ophth Drops] 1 drops EACHEYE QPM Metoprolol Succinate 25 mg PO DAILY 12/28/17 Naproxen Sodium 220 mg PO DAILY PRN 12/28/17 - Allergies Allergies/Adverse Reactions: Allergies Allergy/AdvReac Type Severity Reaction Status Date / Time No Known Drug Allergies Allergy Verified 10/26/17 03:22 Review of Systems - Constitutional Constitutional: reports: Fatigue - Eyes Eyes: reports: Vision loss - Ears, Nose & Throat Ears, Nose & Throat: reports: Hearing loss, Dental decay, Dry mouth - Cardiovascular Cardiovascular: reports: Chest pain, Edema, Exertional dyspnea - Respiratory Respiratory: reports: Cough (dry non productive cough; high pitched in nautre), SOB with exertion, Other (patient had been trialed on bipap but declined; on 4 liters; hypoxic if off;) - Gastrointestinal Gastrointestinal: reports: Good appetite - Genitourinary Genitourinary: reports: Incontinence - Musculoskeletal Musculoskeletal: reports: Stiffness, Muscle weakness, Other (has been bedbound; up once with PT only; refusing to cooperate with PT needing lift) - Integumentary Integumentary: reports: Dryness - Neurological Neurological: reports: General weakness, Memory problems, Pre-existing deficit - Psychiatric Psychiatric: reports: Anxiety, Behavior disturbances (patient very little insight to assistance needed and/or offered;) - Endocrine Endocrine: reports: Hypothyroidism - Hematologic/Lymphatic Hematologic/Lymphatic: reports: Anemia (35.2) - All Other Systems All Other Systems: reports: Reviewed and negative Physical Exam - Vital Signs Vital Signs: Vital Signs x48h Temp Pulse Pulse Resp BP BP BP 01/04/18 14:08 36.9 C 68 20 111/63 01/04/18 08:25 36.8 C 75 19 149/82 H 01/04/18 07:50 36.8 C 74 16 166/93 H Pulse Ox 01/04/18 14:08 94 01/04/18 08:25 94 01/04/18 07:50 94 - Physical Exam General Appearance: positive: Mild distress, Other (fluctuating alertness; able to engage but difficulty answering questions correctly) Eyes Bilateral: positive: Other (right eye discolored/white from glaucoma) ENT: positive: Other (poor dentition) Neck: positive: Trachea midline (large neck) Cardiovascular: positive: Regular rate & rhythm Respiratory: positive: Diminished throughout Abdomen: positive: Soft, Nml bowel sounds, Distended, Obese Skin: positive: Pallor, Dryness Extremities: positive: Pedal edema (left greater than right) Neurologic/Psychiatric: positive: Mood/affect nml, Disoriented to person, Disoriented to place, Disoriented to time, Weakness, Flat affect Palliative Care - POLST POLST Status: DNR Pain: Location (patient denies pain at rest; though demonstrates pain behaviors in left shoulder and with moving leg; left leg pronated out) Performance Status: Patient's previous level of function had been mostly bed bound, needing assistance with transfer to the commode, frequent falls. Patient currently needs bed mobility assistance for turning, is able to self-feed, but is a 2 person assist for any kind of activity. - Palliative Care Discussion: Patient was approached regarding goals of care, when asked what most important to her she wanted to go home. In discussing what would needed for be for that to happen I was unable to elicit any kind of plan of she might need, and how she would be taken care of. When asked her why she was in the hospital, she is unable to tell me what is wrong with her. I shared my concern that she has been seriously ill, and were now concerned that she is now bedbound. I reviewed she had a fall, she has something wrong with her lungs and now needs oxygen, and that she is very weak and can't take care of herself because of this. I aske her to paraphrase the information shared, she was unable to admit there was anything wrong or able to tell me why she was in the hospital right after she was given the information. When asked if she is willing to consider therapy or support to be able to manage her at home, she demonstrates no insight into this, and says that she will be able to try out walking and use her commode when she gets home. When pointed out that she currently now can hardly turn in bed without maximum assistance, she was unable to show any response to this. I asked her about going home with the focus only on comfort, that if we were able to make her better we could at least make her comfortable. She said she has plans to get better and go to [place], she loves to travel, and she still has things to do. When asked her last time she traveled, she reports she went to [place] a couple years ago, when asked if this was after her stroke she said yes. When I introduced that she was 87 years old, and we are concerned about her quality of life, and would like to talk about what she might or might not want for care. She said she had to think about it, and wanted me to check with Jimmy and Azam what their thoughts were. I did call and talk infront of her as part of the conversation to Jeane a caregiver, and Azam a friend. Jeane shared the patientHas been a client for over a year, and concerned and she is concerned as well about safety caring for her. She is quite a large woman, she does have another caregiver but understands she would need to hire which she feels would be for other caregivers to do 24 7 care in shifts. She has not pursued this as she understood there might still be a possibility she might be placed. She does see that this would take a significant amount of effort on her part to be able to find care. I spoke with Azam Amaral he does visit her on a regular basis, he provides backup for as a financial executive function. Reports she is a dear friend, but is not involved in her medical decision making. They have all been quite concerned about her care. He reports she has not really been out of bed by herself since her stroke, she has frequent falls, and called 911 frequently. Spoke with DURABLE POWER OF CRIB ATTENDANT Jimmy Tran phone number [phone]. He expresses severe concerns about patient returning back to her home setting, he reports she cannot see, and concerned she will not accept the hospital bed. We did discuss in the context of patient's fluctuating mental status, and he reports she does have moments of clarity, but is unable to weigh benefits and burdens of coming up or participating in a safe discharge plan. There is no one available to oversee the caregivers, particularly for transition to hospice and making decisions regarding comfort medications, treatment plan, when discussing options available to patient for further support in the home besides 24-hour care. It was suggested she might have sundowning given evenings she is most confused. She does have some finances be able to support care, 24 7 care would be much more expensive than long-term facility care. He has been concerned for several years now that she is in an unsafe environment she would not be able to leave it there was a fire or if something catastrophic happened. There have been several reports to APS, and patient has been allowed to make her own decisions. The patient though has been declining both functionally and cognitively. Discussed in the context the patient does not present with decision -making capacity and ability to weigh benefits and burdens and consequences of decisions to go home nor oversee her care at home that it would default to him. She requests that they look at placement to be able to her care needs, to make sure she does not have any suffering, and that her end-of-life experience is not in crisis. Results - Lab Results Lab results reviewed: Yes Fish Bones: 01/04/18 05:36 01/04/18 05:36 Lab and Imaging Results: Lab Results x24hrs 01/04/18 01/04/18 01/04/18 Range/Units 11:01 05:36 05:36 WBC (4.8-10.8) x10^3/uL RBC (4.20-5.40) 10^6/uL Hgb (12.0-16.0) g/dL Hct (37.0-47.0) % MCV (81.0-99.0) fL MCH (27.0-31.0) pg MCHC (32.0-36.0) g/dL RDW (12.0-15.0) % Plt Count (130-450) 10^3/uL MPV (7.9-10.8) fL Neut # (Auto) (1.5-6.6) 10^3/uL Lymph # (Auto) (1.5-3.5) 10^3/uL [place] # (Auto) (0.0-1.0) 10^3/uL Eos # (Auto) (0.0-0.7) 10^3/uL Baso # (Auto) (0.0-0.1) 10^3/uL Absolute Nucleated RBC x10^3/uL Nucleated RBC % /100WBC Sodium 139 (135-145) mmol/L Potassium 3.3 L (3.5-5.0) mmol/L Chloride 93 L (101-111) mmol/L Carbon Dioxide 37 H (21-32) mmol/L Anion Gap 9.0 (6-13) BUN 17 (6-20) mg/dL Creatinine 1.0 (0.4-1.0) mg/dL Estimated GFR (MDRD) 53 L (>89) Glucose 114 H (70-100) mg/dL Calcium 9.0 (8.5-10.3) mg/dL Ionized Calcium NO Phosphorus 3.2 (2.5-4.6) mg/dL Magnesium 1.9 (1.7-2.8) mg/dL Total Bilirubin 0.5 (0.2-1.0) mg/dL AST 28 (10-42) IU/L ALT 20 (10-60) IU/L Alkaline Phosphatase 29 L (42-121) IU/L Troponin I < 0.04 < 0.04 (<0.49) ng/mL Total Protein 6.9 (6.7-8.2) g/dL Albumin 3.2 (3.2-5.5) g/dL Globulin 3.7 (2.1-4.2) g/dL Albumin/Globulin Ratio 0.9 L (1.0-2.2) 01/04/18 01/03/18 Range/Units 05:36 21:30 WBC 7.4 (4.8-10.8) x10^3/uL RBC 3.68 L (4.20-5.40) 10^6/uL Hgb 11.8 L (12.0-16.0) g/dL Hct 35.8 L (37.0-47.0) % MCV 97.4 (81.0-99.0) fL MCH 32.2 H (27.0-31.0) pg MCHC 33.1 (32.0-36.0) g/dL RDW 14.1 (12.0-15.0) % Plt Count 228 (130-450) 10^3/uL MPV 7.7 L (7.9-10.8) fL Neut # (Auto) 4.5 (1.5-6.6) 10^3/uL Lymph # (Auto) 2.0 (1.5-3.5) 10^3/uL [place] # (Auto) 0.8 (0.0-1.0) 10^3/uL Eos # (Auto) 0.1 (0.0-0.7) 10^3/uL Baso # (Auto) 0.0 (0.0-0.1) 10^3/uL Absolute Nucleated RBC 0.00 x10^3/uL Nucleated RBC % 0.0 /100WBC Sodium (135-145) mmol/L Potassium (3.5-5.0) mmol/L Chloride (101-111) mmol/L Carbon Dioxide (21-32) mmol/L Anion Gap (6-13) BUN (6-20) mg/dL Creatinine (0.4-1.0) mg/dL Estimated GFR (MDRD) (>89) Glucose (70-100) mg/dL Calcium (8.5-10.3) mg/dL Ionized Calcium Phosphorus (2.5-4.6) mg/dL Magnesium (1.7-2.8) mg/dL Total Bilirubin (0.2-1.0) mg/dL AST (10-42) IU/L ALT (10-60) IU/L Alkaline Phosphatase (42-121) IU/L Troponin I < 0.04 (<0.49) ng/mL Total Protein (6.7-8.2) g/dL Albumin (3.2-5.5) g/dL Globulin (2.1-4.2) g/dL Albumin/Globulin Ratio (1.0-2.2) Impression and Recommendations - Palliative Care Impression: This is an 87-year-old woman he had a stroke in 2012 with left-sided hemiparesis , she is a strong personality and has managed to live at home up to this point in time, despite having multiple falls. She has though had increased functional decline, increased cognitive decline with increased fluctuating confusion including several calls to 911 for various issues besides falls. She presents today with known severe pulmonary hypertension, now on continuous oxygen, is breathless at rest. Concern regarding her cognitive status may also have been contributed to by her chronic hypoxia, the patient does not present today at this point in time with decision-making capacity to be able to weigh benefits and burdens regarding her medical care and a safe discharge plan. In the context of this, the decision defers to her DPO A Jimmy Szymanski, who is with severe concerns and would like her to have a long-term care placement where she can be safe and supported. Recommendations/Counseling Done: 1. Pulmonary hypertension, oxygen dependent. This is a new diagnosis for patient, she did present with hypoxia hypercapnic anemia and pulmonary failure she is now at 4 L and continues with needing oxygen. She is breathless at rest , though denies any distress with this. Given her multiple other comorbidities , now bedbound status, if patient's goals align patient would most likely be a candidate for hospice support. Call to key account director Dr. Anderson for [facility] hospice, he felt it would be reasonable, but given her lack of support in the home and no primary caregiver, and cognitive deficits would not be a candidate for home hospice support she would be able to receive hospice in a long-term care setting if she were private pay. I would strongly recommend this. 2. Dementia. Patient does not present oriented to time, place, and person. She does have severe short-term memory deficits, she does have some fluctuating moments of clarity and able to express her wishes. She is so unable to provide any insight into the seriousness of her illness, or able to give information about her illness despite provided information. She is able to express her wishes as far as wanting to return home, unable to weigh benefits and burdens of the care plan or execute this. She does not have a primary caregiver, she does have paid caregivers but none are in a position to be able to direct care and or make medication decisions. This is reviewed with her DPOA Jimmy Szymanski, whom has a long time history with her and has had concerns since her stroke of her being in an unsafe situation. Given her expected decline and wanting her to be as comfortable as possible, will pursue placement for rat exterminator care. 3. Advanced care planning. Patient does not have a CHENG ST that is a do not attempt resuscitation, did broach the topic with patient, she deferred it to her "to handsome boys" to assist with the decision, she said she would think about it. In an advanced directive document she did express she would not want CPR/artifical nutrition/hydration/ or tube feedings. Patient is a DNR here in this setting in the context of the decision made when she presented acutely ill. Will need to complete prior to discharge with Jimmy Sravansuma. Spoke with patient after gathering information from DPOAE, evaluating decision- making capacity, collecting information from caregivers and reviewing documents. I also made contact with her primary care provider Dr. Steward, patient has been mostly housebound for several years, unable to make it in. There have been concerns about her managing in her current situation. Reviewed with her that she is still very seriously ill, that we are all concerned that she is able to be taken care of, and given the severity of her illness right now she needs to be somewhere where they can focus on keeping her comfortable and her current caregivers would not be able care for her in her current state. As we do not have a placement yet decided, I did not take it further. She said she was disappointed, but do not believe she understood the implications of this. Time Spent: 90 minutes with greater than 50% of this done in counseling and coordination of care follow-up on goals of care, with the POA, hospitalist, social science teacher and anticipatory guidance.
--- NOTE | 2018-01-04 15:02 | PROVIDER PROGRESS NOTE ---
Assessment/Plan - Problem List (1) Acute respiratory failure with hypoxia and hypercapnia Assessment/Plan: Patient had normal CTA Lungs and multiple CXRs were negative Echo shows severe pulmonary hypertension Patient placed on BiPAP with no improvement and refused to continue on BiPAP Patient has improved but still requiring 3-4L of O2 and de-saturates with minimal movement in the bed or with speaking so we have not been able to wean her down this maybe her new baseline. This is likely secondary to over sedation from narcotics in combination with GLORIA /OHS and pulmonary hypertension Patient may have chronic hypoxia that has been undiagnosed as she has refused to come to the hospital in the past Patient is now requiring 4L of O2 therefore will get a CXR this am and give her another dose of IV lasix as she still appears overloaded PT evaluated the patient and patient is able to sit up at side of bed but she is extremely weak and has decompensation. Patient needs placement. [facility] refused to take the patient because of behavioral concerns and current patient load with many patients having behavioral issues. Yesterday patient expressed that she did not want to go to rehab and that she did not want to participate in rehab. She stated that she wanted to go home. Today palliative care was consulted. After a long discussion with palliative care, the patient's primary care physician Dr. Steward, and the patient's DURABLE POWER OF LICENSED BONDSMAN Jimmy it was concluded that it would not be safe for the patient to go home. Although she could receive 24 hour caregivers there is nobody that would be around to make executive decisions and if the patient asked the caregivers to call 911 or if the caregivers had to make decisions about her medications they would not be able to. The patient herself does not have the insight to be able to make good decisions for herself. When it comes to the decision of her going home or going to a long-term fpc we do not believe that the patient can make a rational decision given her cognitive abilities. The overwhelming consensus is that the patient needs a long-term fpc. Social work has been informed of this and are working on finding her a facility. Once she gets to the facility the patient will be referred for hospice. The patient would be eligible for hospice on the basis of her pulmonary hypertension and her rapid decline over the last several months. (2) Altered mental status Impression: Likely secondary to hypercapnia Possibly also a component of concussion after the fall Patients mentation continues to wax and wane and she seems to have a very poor short term memory CT head negative x 2 Spoke with patient POA today Jimmy Tran who states that she has episodes of confusion during the day at home Patients Caregiver Jeane stated that patient is not so forgetful as she has been since being admitted to the hospital She has had extensive workup for infection which was negative but spiked fever 3 days ago so placed on IV zosyn and levaquin. Blood cx positive in 1 of 2 bottles but looks like a contaminant and patient has had no further fevers and WBC is normal so abx was stopped Patient likely still suffering from effects of fall in combination with hypercapnia Patient wants to go home but she lacks the insight to make a rational decision about whether she should go home or go to a long-term facility. It appears as though the patient has been chronically hypoxic for a long time and due to this has done damage to her cognition. Although the patient is able to hold a conversation she has major issues with short-term memory loss. Despite being told every day while she is in the hospital she cannot remember from day to day why she is there. She can carry on a conversation but still lacks insight. It seems the patient has likely been declining as far as her mental status goes over the last several months. At this point the patient looks to be at her baseline but at her baseline she is not able to make rational decisions for herself. We will therefore defer all medical decisions for the patient to her DURABLE POWER OF LICENSED BONDSMAN Jimmy (3) Contusion of left thigh Impression: The patient says she did not fall, but instead slid off the bed while she was being hoisted up. Despite her claims she has a very large hematoma to her left thigh. Additionally there was a questionable nondisplaced femur fracture. Dr. Christiana Zarco was consulted and saw the patient and feels that this is not a nondisplaced fracture and that the patient may safely weight-bear. There are some large concerns regarding the patient's living arrangement from both her nephew and her POA. Additionally the patient does have a long history of abusing the EMS system, for example calling life alert to have someone come and find her TV remote or to move her fan. There have reportedly been greater than 50 of these types of calls. This is because she only has daytime caregivers. Despite this patient has been adamant about refusing to go to a facility where she may receive assistance with her ADLs. Pain control for hematoma Holding plavix Improving will restart plavix at discharge (4) Hypertension Impression: Patient on HCTZ, lisinopril and metoprolol Metoprolol dose was increased yesterday and her BP is improved today (5) Depression Impression: Patient has a history of depression but says she is not depressed at this time. She takes citalopram at home and will continue this while she is inpatient. (6) Hypothyroidism Impression: Patient has a history of hypothyroidism and takes levothyroxine at home. TSH is mildly elevated at 7.61. Synthroid increased to 175mcg Stable - Current Meds Current Meds: Current Medications Generic Name Dose Route Start Last Admin Trade Name Freq PRN Reason Stop Dose Admin Acetaminophen 650 mg 12/27/17 22:19 12/28/17 13:15 Tylenol PO 650 mg Q4HR PRN Administration Pain or Fever > 38C (100.4F) Hydrocodone Bitart/Acetaminophen 1 tab 12/27/17 22:19 01/04/18 09:04 [place] 5/325 PO 1 tab Q4HR PRN Administration Pain 5 to 7 Aspirin 325 mg 12/28/17 09:00 01/04/18 09:04 Ecotrin PO 325 mg DAILY SUNIL Administration Chlorhexidine Gluconate 15 ml 12/29/17 21:00 01/04/18 09:04 Peridex PO 15 ml BID SUNIL Administration Citalopram Hydrobromide 10 mg 12/28/17 09:00 01/04/18 09:04 Celexa PO 10 mg DAILY SUNIL Administration Docusate Sodium 250 - 500 mg 12/30/17 09:00 01/04/18 09:04 Colace 250mg Capsule PO 250 mg DAILY SUNIL Administration Enoxaparin Sodium 40 mg 12/28/17 09:00 01/04/18 09:03 Lovenox SUBQ 40 mg DAILY SUNIL Administration Famotidine 20 mg 12/28/17 09:00 01/04/18 09:04 Pepcid PO 20 mg DAILY SUNIL Administration Hydrochlorothiazide 25 mg 01/03/18 09:00 01/04/18 09:04 Hydrodiuril PO 25 mg DAILY SUNIL Administration Acetaminophen 100 mls @ 400 mls/hr 12/30/17 20:58 01/01/18 19:42 Ofirmev IV Infused Q6HR PRN Infusion PAIN Levothyroxine Sodium 100 mcg 12/31/17 07:00 01/04/18 06:39 Synthroid PO 100 mcg QDAC SUNIL Administration Levothyroxine Sodium 75 mcg 12/31/17 07:00 01/04/18 06:39 Synthroid PO 75 mcg QDAC SUNIL Administration Lisinopril 40 mg 01/03/18 09:00 01/04/18 09:04 Zestril PO 40 mg DAILY SUNIL Administration Lorazepam 0.5 mg 12/29/17 19:57 01/04/18 03:09 Ativan Inj (Vial) IVP 0.5 mg Q2H PRN Administration Anxiety Metoprolol Succinate 50 mg 01/03/18 09:00 01/04/18 09:04 Toprol Xl PO 50 mg DAILY SUNIL Administration Morphine Sulfate 1 mg 12/29/17 19:57 12/31/17 02:41 Morphine IVP 1 mg Q2H PRN Administration PAIN Multi-Ingredient Ointment 1 applic 12/31/17 22:23 01/04/18 06:43 Zinc Oxide TOP 1 applic PRN PRN Administration Skin Care Naproxen 250 mg 12/28/17 18:32 01/04/18 06:40 Naprosyn PO 250 mg DAILY PRN Administration PAIN Pantoprazole Sodium 40 mg 12/30/17 07:00 01/04/18 06:39 Protonix IVP 40 mg QDAC SUNIL Administration Brimonidine 0.1% 1 each 12/28/17 21:00 01/04/18 09:06 Ophth Drops 5 Ml EACHEYE 1 each BID SUNIL Administration Latanoprost 0.005% 1 each 12/28/17 21:00 01/03/18 20:25 Ophth Drops EACHEYE 1 each QPM SUNIL Administration Polyethylene Glycol 17 gm 12/28/17 09:00 01/04/18 09:03 Miralax PO 17 gm DAILY SUINL Administration Senna 8.6 - 17.2 mg 12/30/17 09:00 01/04/18 09:04 Senokot PO 8.6 mg DAILY SUNIL Administration Sodium Chloride 10 ml 12/27/17 22:19 01/04/18 06:39 Normal Saline Flush 0.9% IVP 10 ml PRN PRN Administration NEEDED PER PROVIDER ORDERS Sodium Chloride 10 ml 12/28/17 01:00 01/04/18 09:04 Normal Saline Flush 0.9% IVP 10 ml 0100,0900,1700 SUNIL Administration - Lab Result Lab results reviewed: Yes Fish Bone Diagrams: 01/04/18 05:36 01/04/18 05:36 - Diagnostic Imaging Results Diagnostic Imaging Results: Final report reviewed - Additional Planning Condition/Complexity: Stable My Orders: My Active Orders 01/04/18 09:00 ABG - ARTERIAL BLOOD GAS [BG] DAILY 01/05/18 05:00 CBC - COMP BLD CT W/AUTO DIFF [HEME] DAILYLAB CMP, RFLX TO IONIZED CA IF [CHEM] DAILYLAB MAGNESIUM [CHEM] DAILYLAB PHOSPHORUS [CHEM] DAILYLAB 01/06/18 05:00 CBC - COMP BLD CT W/AUTO DIFF [HEME] DAILYLAB CMP, RFLX TO IONIZED CA IF [CHEM] DAILYLAB MAGNESIUM [CHEM] DAILYLAB PHOSPHORUS [CHEM] DAILYLAB 01/07/18 05:00 CBC - COMP BLD CT W/AUTO DIFF [HEME] DAILYLAB CMP, RFLX TO IONIZED CA IF [CHEM] DAILYLAB MAGNESIUM [CHEM] DAILYLAB PHOSPHORUS [CHEM] DAILYLAB Plan Discussed with:: Patient, Power of Senior Engineering Manager Subjective - Subjective Patient Reports: Other (Patient is very conversant but lacks insight. She continues to state that she wants to go home. She denies any fevers, chills, chest pain or shortness of breath.) Nursing Reports: Confused Objective Vital Signs: Vital Signs - 24 hr 01/03/18 01/03/18 01/03/18 15:35 21:00 23:32 Temperature 36.4 C L 36.6 C 36.2 C L Heart Rate [ 64 Brachial] Heart Rate [ 74 68 Radial] Respiratory 22 22 20 Rate Blood Pressure [Left Brachial artery] Blood Pressure 132/63 H [Right Brachial artery] Blood Pressure 145/64 H 131/72 H [Right Radial artery] O2 Saturation 94 96 93 01/04/18 01/04/18 01/04/18 03:59 07:50 08:25 Temperature 36.6 C 36.8 C 36.8 C Heart Rate [ 73 75 Brachial] Heart Rate [ 74 Radial] Respiratory 22 16 19 Rate Blood Pressure 166/93 H [Left Brachial artery] Blood Pressure [Right Brachial artery] Blood Pressure 150/91 H 149/82 H [Right Radial artery] O2 Saturation 94 94 94 01/04/18 14:08 Temperature 36.9 C Heart Rate [ 68 Brachial] Heart Rate [ Radial] Respiratory 20 Rate Blood Pressure [Left Brachial artery] Blood Pressure 111/63 [Right Brachial artery] Blood Pressure [Right Radial artery] O2 Saturation 94 Oxygen O2 Source Nasal cannula I&O (Last 24 Hrs): Intake and Output Totals x24h 01/02/18 01/03/18 01/04/18 23:59 23:59 23:59 Intake Total 675 896 570 Output Total 1375 400 Balance -700 896 170 General: Alert, Cooperative, No acute distress, Other (Oriented x2, obese) HEENT: Atraumatic, PERRLA, EOMI, Mucous membr. moist/pink Neck: Supple, No JVD, No thyromegaly, +2 carotid pulse wo bruit, No LAD Lymphatic: no adenopathy Neuro: Alert, Non Focal, CN 2-12 Grossly Intact, Other (A&Ox2) Cardiovascular: Regular rate, Normal S1, Normal S2, No murmurs Respiratory: Chest non-tender, No respiratory distress, Rales (Bases) Abdomen: Normal bowel sounds, Soft, No tenderness, No hepatospenomegaly Extremities: No clubbing, No cyanosis, Normal pulses, Other (Edema LE) Skin: No rashes, No breakdown Comments/Notes: Swelling in left gluteal area improved - Results Results: Laboratory Results WBC 7.4 x10^3/uL (4.8-10.8) 01/04/18 05:36 RBC 3.68 10^6/uL (4.20-5.40) L 01/04/18 05:36 Hgb 11.8 g/dL (12.0-16.0) L 01/04/18 05:36 Hct 35.8 % (37.0-47.0) L 01/04/18 05:36 MCV 97.4 fL (81.0-99.0) 01/04/18 05:36 MCH 32.2 pg (27.0-31.0) H 01/04/18 05:36 MCHC 33.1 g/dL (32.0-36.0) 01/04/18 05:36 RDW 14.1 % (12.0-15.0) 01/04/18 05:36 Plt Count 228 10^3/uL (130-450) 01/04/18 05:36 MPV 7.7 fL (7.9-10.8) L 01/04/18 05:36 Neut # (Auto) 4.5 10^3/uL (1.5-6.6) 01/04/18 05:36 Lymph # (Auto) 2.0 10^3/uL (1.5-3.5) 01/04/18 05:36 [place] # (Auto) 0.8 10^3/uL (0.0-1.0) 01/04/18 05:36 Eos # (Auto) 0.1 10^3/uL (0.0-0.7) 01/04/18 05:36 Baso # (Auto) 0.0 10^3/uL (0.0-0.1) 01/04/18 05:36 Absolute Nucleated RBC 0.00 x10^3/uL 01/04/18 05:36 Nucleated RBC % 0.0 /100WBC 01/04/18 05:36 Bld Gas Analysis Time 0537 12/30/17 05:25 Sample Site RIGHT RADIAL 12/30/17 05:25 ABG pH 7.28 (7.35-7.45) L 12/30/17 05:25 ABG pCO2 62 mmHg (34-45) H* 12/30/17 05:25 ABG pO2 87 mmHg (80-100) 12/30/17 05:25 ABG HCO3 28.7 mmol/L (22.0-26.0) H 12/30/17 05:25 ABG Total CO2 30.6 MMOL/L (21.0-29.0) H 12/30/17 05:25 ABG O2 Saturation 96 % (94-98) 12/30/17 05:25 ABG Oximetry Spot Check 97 % 12/30/17 05:25 ABG Base Excess 0.9 mmol/L (-2.0-3.0) 12/30/17 05:25 Rodrigo Test POSITIVE 12/30/17 05:25 VBG pH 7.331 (7.31-7.41) 12/29/17 18:30 Ionized Calcium 1.02 mmol/L (1.15-1.33) L 12/29/17 18:30 Respiration Rate 14 b/min 12/29/17 16:25 O2 Delivery Device OXYMASK 12/30/17 05:25 O2 Liters/Min 4.00 LPM 12/30/17 05:25 Vent Mode SYNCHRONOUS/TIMES 12/29/17 16:25 FiO2 50.00 12/29/17 16:25 Pressure Support Vent 11 cmH2O 12/29/17 16:25 EPAP 7 cmH2O 12/29/17 16:25 IPAP 18 cmH2O 12/29/17 16:25 Sodium 139 mmol/L (135-145) 01/04/18 05:36 Potassium 3.3 mmol/L (3.5-5.0) L 01/04/18 05:36 Chloride 93 mmol/L (101-111) L 01/04/18 05:36 Carbon Dioxide 37 mmol/L (21-32) H 01/04/18 05:36 Anion Gap 9.0 (6-13) 01/04/18 05:36 BUN 17 mg/dL (6-20) 01/04/18 05:36 Creatinine 1.0 mg/dL (0.4-1.0) 01/04/18 05:36 Estimated GFR (MDRD) 53 (>89) L 01/04/18 05:36 Glucose 114 mg/dL (70-100) H 01/04/18 05:36 Lactic Acid 0.7 mmol/L (0.5-2.2) 12/29/17 18:30 Calcium 9.0 mg/dL (8.5-10.3) 01/04/18 05:36 Ionized Calcium NO 01/04/18 05:36 Phosphorus 3.2 mg/dL (2.5-4.6) 01/04/18 05:36 Magnesium 1.9 mg/dL (1.7-2.8) 01/04/18 05:36 Total Bilirubin 0.5 mg/dL (0.2-1.0) 01/04/18 05:36 AST 28 IU/L (10-42) 01/04/18 05:36 ALT 20 IU/L (10-60) 01/04/18 05:36 Alkaline Phosphatase 29 IU/L (42-121) L 01/04/18 05:36 Troponin I < 0.04 ng/mL (<0.49) 01/04/18 11:01 B-Natriuretic Peptide 78 pg/mL (5-100) 12/29/17 18:30 Total Protein 6.9 g/dL (6.7-8.2) 01/04/18 05:36 Albumin 3.2 g/dL (3.2-5.5) 01/04/18 05:36 Globulin 3.7 g/dL (2.1-4.2) 01/04/18 05:36 Albumin/Globulin Ratio 0.9 (1.0-2.2) L 01/04/18 05:36 TSH 7.61 uIU/mL (0.34-5.60) H 12/29/17 04:55 Urine Color YELLOW 12/27/17 18:53 Urine Clarity CLEAR (CLEAR) 12/27/17 18:53 Urine pH 5.5 PH (5.0-7.5) 12/27/17 18:53 Ur Specific [place] 1.020 (1.002-1.030) 12/27/17 18:53 Urine Protein NEGATIVE mg/dL (NEGATIVE) 12/27/17 18:53 Urine Glucose (UA) NEGATIVE mg/dL (NEGATIVE) 12/27/17 18:53 Urine Ketones NEGATIVE mg/dL (NEGATIVE) 12/27/17 18:53 Urine Occult Blood NEGATIVE (NEGATIVE) 12/27/17 18:53 Urine Nitrite NEGATIVE (NEGATIVE) 12/27/17 18:53 Urine Bilirubin NEGATIVE (NEGATIVE) 12/27/17 18:53 Urine Urobilinogen 0.2 (NORMAL) E.U./dL (NORMAL) 12/27/17 18:53 Ur Leukocyte Esterase NEGATIVE (NEGATIVE) 12/27/17 18:53 Ur Microscopic Review NOT INDICATED 12/27/17 18:53 Urine Culture Comments NOT INDICATED 12/27/17 18:53 ABX Reporting Has patient been on IV antibiotics over the past 48 hours?: No Current Medications - Current Medications Current Medications: Active Medications Acetaminophen (Tylenol) 650 mg PO Q4HR PRN PRN Reason: Pain or Fever > 38C (100.4F) Last Admin: 12/28/17 13:15 Dose: 650 mg Hydrocodone Bitart/Acetaminophen (Copan 5/325) 1 tab PO Q4HR PRN PRN Reason: Pain 5 to 7 Last Admin: 01/04/18 09:04 Dose: 1 tab Aspirin (Ecotrin) 325 mg PO DAILY [facility] Last Admin: 01/04/18 09:04 Dose: 325 mg Chlorhexidine Gluconate (Peridex) 15 ml PO BID [facility] Last Admin: 01/04/18 09:04 Dose: 15 ml Citalopram Hydrobromide (Celexa) 10 mg PO DAILY [facility] Last Admin: 01/04/18 09:04 Dose: 10 mg Docusate Sodium (Colace 250mg Capsule) 250 - 500 mg PO DAILY [facility] Last Admin: 01/04/18 09:04 Dose: 250 mg Enoxaparin Sodium (Lovenox) 40 mg SUBQ DAILY [facility] Last Admin: 01/04/18 09:03 Dose: 40 mg Famotidine (Pepcid) 20 mg PO DAILY [facility] Last Admin: 01/04/18 09:04 Dose: 20 mg Hydrochlorothiazide (Hydrodiuril) 25 mg PO DAILY [facility] Last Admin: 01/04/18 09:04 Dose: 25 mg Acetaminophen (Ofirmev) 100 mls @ 400 mls/hr IV Q6HR PRN PRN Reason: PAIN Last Infusion: 01/01/18 19:42 Dose: Infused Levothyroxine Sodium (Synthroid) 100 mcg PO QDAC [facility] Last Admin: 01/04/18 06:39 Dose: 100 mcg Levothyroxine Sodium (Synthroid) 75 mcg PO QDAC [facility] Last Admin: 01/04/18 06:39 Dose: 75 mcg Lisinopril (Zestril) 40 mg PO DAILY [facility] Last Admin: 01/04/18 09:04 Dose: 40 mg Lorazepam (Ativan Inj (Vial)) 0.5 mg IVP Q2H PRN PRN Reason: Anxiety Last Admin: 01/04/18 03:09 Dose: 0.5 mg Metoprolol Succinate (Toprol Xl) 50 mg PO DAILY [facility] Last Admin: 01/04/18 09:04 Dose: 50 mg Morphine Sulfate (Morphine) 1 mg IVP Q2H PRN PRN Reason: PAIN Last Admin: 12/31/17 02:41 Dose: 1 mg Multi-Ingredient Ointment (Zinc Oxide) 1 applic TOP PRN PRN PRN Reason: Skin Care Last Admin: 01/04/18 06:43 Dose: 1 applic Naproxen (Naprosyn) 250 mg PO DAILY PRN PRN Reason: PAIN Last Admin: 01/04/18 06:40 Dose: 250 mg Pantoprazole Sodium (Protonix) 40 mg IVP QDAC [facility] Last Admin: 01/04/18 06:39 Dose: 40 mg Brimonidine 0.1% (Ophth Drops 5 Ml) 1 each EACHEYE BID [facility] Last Admin: 01/04/18 09:06 Dose: 1 each Latanoprost 0.005% (Ophth Drops) 1 each EACHEYE QPM [facility] Last Admin: 01/03/18 20:25 Dose: 1 each Phenol/Menthol (Chloraseptic) 2 sprays MM Q2HR PRN PRN Reason: Throat Pain Polyethylene Glycol (Miralax) 17 gm PO DAILY [facility] Last Admin: 01/04/18 09:03 Dose: 17 gm Senna (Senokot) 8.6 - 17.2 mg PO DAILY [facility] Last Admin: 01/04/18 09:04 Dose: 8.6 mg Sodium Chloride (Normal Saline Flush 0.9%) 10 ml IVP PRN PRN PRN Reason: NEEDED PER PROVIDER ORDERS Last Admin: 01/04/18 06:39 Dose: 10 ml Sodium Chloride (Normal Saline Flush 0.9%) 10 ml IVP 0100,0900,1700 [facility] Last Admin: 01/04/18 09:04 Dose: 10 ml Vitamin A/Vitamin D (Vitamin A & D Ointment) 1 applic TOP PRN PRN PRN Reason: Skin Care Citalopram Hydrobromide [Celexa] 20 mg PO DAILY 08/02/15 Clopidogrel [Plavix] 75 mg PO DAILY 08/02/15 Hydrochlorothiazide 25 mg PO DAILY 08/02/15 Levothyroxine [Synthroid] 150 mcg PO QDAC 08/02/15 Lisinopril 40 mg PO DAILY 08/02/15 Brimonidine 0.1% Ophth Drops [Alphagan P 0.1% Ophth Drops] 1 drops EACHEYE BID 12/28/17 Latanoprost 0.005% Ophth Drops [Xalatan Ophth Drops] 1 drops EACHEYE QPM Metoprolol Succinate 25 mg PO DAILY 12/28/17 Naproxen Sodium 220 mg PO DAILY PRN 12/28/17
--- NOTE | 2018-01-04 18:49 | Discharge Plan ---
"Discharge Plan for SNF / [facility]I - DC Plan and Transition Orders SNF Transition Orders: Admit to: [HomeCare] under the care of [Godfrey Steward MD] Discharge Diagnosis: [ 1. Acute respiratory failure with hypoxia and hypercapnia 2. Altered mental status 3. Contusion of the left hip 4. Hypertension 5. Depression 6. Hypothyroidism 7. Glaucoma] Medicare Certification: I certify that [facility] intermediate care is medically necessary on a continuing basis for any of the conditions for which she/he is receiving care during hospitalization. Notify PCP of admission and forward orders to primary provider for signature. Weight on admission and [None]. Call PCP immediately if weight increases by [n/ a] pounds or if patient develops dyspnea, chest pain/tightness or edema. House Bowel Program: [Yes] If no BM after 2 days, nurse may give M.O.M. 30ml PO PRN and /or ducolax Supp 1 UT and /or JT 250mg P.O., and/or senna 1-2 tabs PO. On day 3 nurse may give repeat above order until residents constipation is resolved. Immunizations: Annual Influenza Vaccine: [Yes]. (between Jan 23 and August 22.) Unless allergy or already given Two-Step PPD: [Yes] per [facility] 248-235 or appropriate documentation of approved exceptions Treatments & Other Orders: [Referral for Hospice] Oxygen Orders: [4L NC ] Lab Tests or X-Rays Orders: [None] Orthopedic Orders: [None]. Medications: PLEASE REFER TO THE DISCHARGE MEDICATION LIST. Insulin Orders? [No] Diagnosis:None Initiate hypo and hyperglycemia protocols for BG <70 and BG >375. May check BG prn for signs/symptoms of dysglycemia. Frequency of BG checks: [None] Basal Insulin: [] Lantus 100 units / ml inject subq as follows: [] [] Other: [] Correction Insulin: - Select the type of insulin below [Choose: Novolog/Humalog]100 units /ml insulin inject subq per orders indicate below [] LOW DOSE [] MODERATE DOSE [] MODERATE/HIGH DOSE [] HIGH DOSE GB UNITS GB UNITS GB UNITS GB UNITS 61-140 0 UNITS 61-140 0 UNITS 61-140 0 UNITS 61-140 0 UNITS 141-175 1 UNITS 141-175 1 UNITS 141-175 2 UNITS 141-175 3 UNITS 176-225 2 UNITS 176-225 3 UNITS 176-225 4 UNITS 176-225 5 UNITS 226-275 3 UNITS 226-275 5 UNITS 226-275 6 UNITS 226-275 7 UNITS 276-325 4 UNITS 276-325 7 UNITS 276-325 8 UNITS 276-325 9 UNITS 326-375 5 UNITS 326-375 9 UNITS 326-375 10 UNITS 326-375 11 UNITS >375 CONTACT MD >375 CONTACT MD >375 CONTACT MD >375 CONTACT MD Custom Dosing: [Choose: None/Novolog/Humalog] 100 units/ml Insulin inject subq as follows: GB Units 61-140 [] Units 141-175 [] Units 176-225 [] Units 226-275 [] Units 276-325 []Units 326-375 [] Units >375 Contact MD - Diet Type: Geriatric Texture: Regular Liquids: Thin May have monthly special meal: Yes - Therapies | Activity Activity: Activity as Tolerated Weight Bearing: Full Weight Assistance Devices: Wheelchair Follow Up: Hospice Referral <Dandre Garza - Last Filed: 01/04/18 19:01> - DC Plan and Transition Orders SNF Transition Orders: Admit to: [facility]] under the care of [Godfrey Steward MD] Discharge Diagnosis: 1. Acute respiratory failure with hypoxia and hypercapnia 2. Altered mental status likely related to Dementia and memory problems 3. Contusion of the left hip after a fall at home 4. Hypertension 5. Depression 6. Hypothyroidism 7. Glaucoma Medicare Certification: I certify that [facility] intermediate care is medically necessary on a continuing basis for any of the conditions for which she/he is receiving care during hospitalization. Notify PCP of admission and forward orders to primary provider for signature. Weight on admission and [None]. Call PCP immediately if weight increases by [n/ a] pounds or if patient develops dyspnea, chest pain/tightness or edema. House Bowel Program: [Yes] If no BM after 2 days, nurse may give M.O.M. 30ml PO PRN and /or ducolax Supp 1 UT and /or JT 250mg P.O., and/or senna 1-2 tabs PO. On day 3 nurse may give repeat above order until residents constipation is resolved. Immunizations: Annual Influenza Vaccine: [Yes]. (between Jan 23 and August 22.) Unless allergy or already given Two-Step PPD: [Yes] per [facility] 248-235 or appropriate documentation of approved exceptions Treatments & Other Orders: [Referral for Hospice] Oxygen Orders: [4L NC ] Lab Tests or X-Rays Orders: [None] Orthopedic Orders: [None]. Medications: PLEASE REFER TO THE DISCHARGE MEDICATION LIST. Insulin Orders? [No] Frequency of BG checks: [None] - Therapies | Activity Rehabilitation Potential: Maintain present ADL Functional <Deborah Bryan - Last Filed: 01/05/18 11:27> - DC Plan and Transition Orders Disposition: 03 [facility] DC/Xfer Condition: Poor Allergies and Adverse Reactions: Allergies Allergy/AdvReac Type Severity Reaction Status Date / Time No Known Drug Allergies Allergy Verified 10/26/17 03:22 - Therapies | Activity Additional Instructions: Patient to be assessed by hospice for palliative care/hospice."
--- NOTE | 2018-01-04 19:03 | DISCHARGE SUMMARY ---
"Discharge Summary Admit Date: 12/27/17 Discharge Date: 01/05/18 Discharging Provider: Deborah Bryan MD Primary Care Provider: Godfrey Steward MD Code Status: Do Not Attempt Resuscitation Condition at Discharge: Poor Discharge Disposition: 03 SNF DC/Xfer Discharge Facility [facility]: [facility] - DIAGNOSES Admission Diagnoses: 1. Hypotension 2. Hypoxemia 3. Hyponatremia 4. Syncope versus fall 5. Left femur fracture 6. Hypothyroidism 7. Glaucoma 8. Left hemiparesis after a stroke in 2012 9. History of hypertension 10. Abnormal electrocardiogram Discharge Diagnoses with Status of Each Condition: 1. Acute respiratory failure with hypoxia and hypercapnia: Stable 2. Altered mental status: Stable 3. Contusion of left thigh: Improved 4. Hypertension: Stable 5. Depression: Stable 6. Hypothyroidism: Stable 7. Glaucoma: Stable 8. 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 The patient lives at home, has had multiple falls, but refuses to live in a fci. She does have a caregiver for daytime, unknown hours. The patient uses her [facility] to call 911 for various assistance once her caregiver is gone; she calls for bringing her fan closer, providing her with more than 1 urinal, helping her with medications, finding her television remote and assisting her when she falls. Apparently there have been multiple falls and , for many of these she has refused evaluation in the emergency room. The medical record indicates that she has had 50+ Lif[facility] calls in the last 6 months. Today she apparently fell out of her bed and was too weak to get up. At one point, she described having syncope but then remembers the entire event and thinks it was a fall. She did call her [facility] and was brought into the emergency room by an ambulance. In the emergency room she was found to have a rotated left lower extremity and pain in her left hip and buttocks and complaint of weakness. She went for various imaging and CT scans and, once she returned to the ER she was noted to have a blood pressure of 80 and an oxygen saturation of 80%. She was having rapid, shallow breathing at that point. She received a fluid bolus and blood pressure was improved to 100-110 systolic. The imaging has shown that she has a fractured left femur and a large hematoma of the left buttock area. She has been admitted for management of hypotension and hypoxemia and the femur fracture. - CONSULTS | PROCEDURES Consultations: Orthopedic surgery And palliative care Procedures: Ortho assessment: Hematoma from Plavix + fall - will monitor after discharge. No changes around the arthroplasty. Will resolve with time and would mobilize when stable. Palliative Care: Patient was approached regarding goals of care, when asked what most important to her she wanted to go home. In discussing what would needed for be for that to happen I was unable to elicit any kind of plan of she might need, and how she would be taken care of. When asked her why she was in the hospital, she is unable to tell me what is wrong with her. I shared my concern that she has been seriously ill, and were now concerned that she is now bedbound. I reviewed she had a fall, she has something wrong with her lungs and now needs oxygen, and that she is very weak and can't take care of herself because of this. I aske her to paraphrase the information shared, she was unable to admit there was anything wrong or able to tell me why she was in the hospital right after she was given the information. When asked if she is willing to consider therapy or support to be able to manage her at home, she demonstrates no insight into this, and says that she will be able to try out walking and use her commode when she gets home. When pointed out that she currently now can hardly turn in bed without maximum assistance, she was unable to show any response to this. I asked her about going home with the focus only on comfort, that if we were able to make her better we could at least make her comfortable. She said she has plans to get better and go to [place], she loves to travel, and she still has things to do. When asked her last time she traveled, she reports she went to [place] a couple years ago, when asked if this was after her stroke she said yes. When I introduced that she was 87 years old, and we are concerned about her quality of life, and would like to talk about what she might or might not want for care. She said she had to think about it, and wanted me to check with Jimmy and Azam what their thoughts were. I did call and talk infront of her as part of the conversation to Jeane a caregiver, and Azam a friend. Jeane shared the patientHas been a client for over a year, and concerned and she is concerned as well about safety caring for her. She is quite a large woman, she does have another caregiver but understands she would need to hire which she feels would be for other caregivers to do 24 7 care in shifts. She has not pursued this as she understood there might still be a possibility she might be placed. She does see that this would take a significant amount of effort on her part to be able to find care. I spoke with Azam Cristin he does visit her on a regular basis, he provides backup for as a financial executive function. Reports she is a dear friend, but is not involved in her medical decision making. They have all been quite concerned about her care. He reports she has not really been out of bed by herself since her stroke, she has frequent falls, and called 911 frequently. Spoke with DURABLE POWER OF P[employer]P MAKING PLANT OPERATOR Jimmy Tran phone number [phone]. He expresses severe concerns about patient returning back to her home setting, he reports she cannot see, and concerned she will not accept the hospital bed. We did discuss in the context of patient's fluctuating mental status, and he reports she does have moments of clarity, but is unable to weigh benefits and burdens of coming up or participating in a safe discharge plan. There is no one available to oversee the caregivers, particularly for transition to hospice and making decisions regarding comfort medications, treatment plan, when discussing options available to patient for further support in the home besides 24-hour care. It was suggested she might have sundowning given evenings she is most confused. She does have some finances be able to support care, 24 7 care would be much more expensive than long-term facility care. He has been concerned for several years now that she is in an unsafe environment she would not be able to leave it there was a fire or if something catastrophic happened. There have been several reports to [facility]PS, and patient has been allowed to make her own decisions. The patient though has been declining both functionally and cognitively. Discussed in the context the patient does not present with decision -making capacity and ability to weigh benefits and burdens and consequences of decisions to go home nor oversee her care at home that it would default to him. She requests that they look at placement to be able to her care needs, to make sure she does not have any suffering, and that her end-of-life experience is not in crisis. - HOSPITAL COURSE Hospital Course: (1) Acute respiratory failure with hypoxia and hypercapnia Assessment/Plan: Patient had normal CTA Lungs and multiple CXRs were negative Echo shows severe pulmonary hypertension Patient placed on BiPAP with no improvement and refused to continue on BiPAP Patient has improved but still requiring 3-4L of O2 and de-saturates with minimal movement in the bed or with speaking so we have not been able to wean her down this maybe her new baseline. This is likely secondary to over sedation from narcotics in combination with GLORIA /OHS and pulmonary hypertension Patient may have chronic hypoxia that has been undiagnosed as she has refused to come to the hospital in the past Patient is now requiring 4L of O2 therefore will get a CXR this am and give her another dose of IV lasix as she still appears overloaded PT evaluated the patient and patient is able to sit up at side of bed but she is extremely weak and has decompensation. Patient needs placement. [facility] refused to take the patient because of behavioral concerns and current patient load with many patients having behavioral issues. Patient expressed that she did not want to go to rehab and that she did not want to participate in rehab. She stated that she wanted to go home. Palliative care was consulted. After a long discussion with palliative care, the patient's primary care physician Dr. Steward, and the patient's DURABLE POWER OF [employer]P [employer]KING [employer] OPERATOR, Jimmy, it was concluded that it would not be safe for the patient to go home. Although she could receive 24 hour caregivers there is nobody that would be around to make executive decisions and if the patient asked the caregivers to call 911 or if the caregivers had to make decisions about her medications they would not be able to. The patient herself does not have the insight to be able to make good decisions for herself. When it comes to the decision of her going home or going to a long-term chcf we do not believe that the patient can make a rational decision given her cognitive disabilities. The overwhelming consensus is that the patient needs a long-term chcf. Social work was able to find a facility that was willing to take her [facility]. Patient will be discharged to [facility]. Once she gets to the facility the patient will be referred for hospice. The patient would be eligible for hospice on the basis of her pulmonary hypertension and her rapid decline over the last several months. (2) Altered mental status Impression: Likely secondary to hypercapnia Possibly also a component of concussion after the fall Patients mentation continues to wax and wane and she seems to have a very poor short term memory CT head negative x 2 Spoke with patient POA today Jimmy Tran who states that she has episodes of confusion during the day at home Patients Caregiver Jeane stated that patient is not so forgetful as she has been since being admitted to the hospital She has had extensive workup for infection which was negative but spiked fever 3 days ago so placed on IV zosyn and levaquin. Blood cx positive in 1 of 2 bottles but looks like a contaminant and patient has had no further fevers and WBC is normal so abx was stopped Patient likely still suffering from effects of fall in combination with hypercapnia Patient wants to go home but she lacks the insight to make a rational decision about whether she should go home or go to a long-term facility. It appears as though the patient has been chronically hypoxic for a long time and due to this has done damage to her cognition. Although the patient is able to hold a conversation she has major issues with short-term memory loss. Despite being told every day while she is in the hospital she cannot remember from day to day why she is there. She can carry on a conversation but still lacks insight. It seems the patient has likely been declining as far as her mental status goes over the last several months. At this point the patient looks to be at her baseline but at her baseline she is not able to make rational decisions for herself. We will therefore defer all medical decisions for the patient to her DURABLE POWER OF [employer]KING [employer] OPERATOR, Jimmy. (3) Contusion of left thigh Impression: The patient says she did not fall, but instead slid off the bed while she was being hoisted up. Despite her claims she has a very large hematoma to her left thigh. Additionally there was a questionable nondisplaced femur fracture. Dr. Christiana Zarco was consulted and saw the patient and feels that this is not a nondisplaced fracture and that the patient may safely weight-bear. There are some large concerns regarding the patient's living arrangement from both her nephew and her POA. Additionally the patient does have a long history of abusing the EMS system, for example calling life alert to have someone come and find her TV remote or to move her fan. There have reportedly been greater than 50 of these types of calls. This is because she only has daytime caregivers. Despite this patient has been adamant about refusing to go to a facility where she may receive assistance with her ADLs. Pain controlled for hematoma Held plavix during hospitalization Improved over hospitalization will restart plavix at [facility] for her history of CVA this maybe discontinued if hospice decides so. (4) Hypertension Impression: Patient on HCTZ, lisinopril and metoprolol Metoprolol dose was increased to 50 mg during hospitalization and patient will continue this dose at [facility]. (5) Depression Impression: Patient has a history of depression but says she is not depressed at this time. She takes citalopram at home and will continue this at [facility]. (6) Hypothyroidism Impression: Patient has a history of hypothyroidism and takes levothyroxine at home. TSH is mildly elevated at 7.61. Synthroid increased to 175mcg Stable - ALLERGIES Allergies/Adverse Reactions: Allergies Allergy/AdvReac Type Severity Reaction Status Date / Time No Known Drug Allergies Allergy Verified 10/26/17 03:22 - MEDICATIONS Home Medications: Ambulatory Orders Medication Instructions Recorded Confirmed Citalopram Hydrobromide [Celexa] 20 mg PO DAILY 08/02/15 12/28/17 Clopidogrel [Plavix] 75 mg PO DAILY 08/02/15 12/28/17 Hydrochlorothiazide 25 mg PO DAILY 08/02/15 12/28/17 Lisinopril 40 mg PO DAILY 08/02/15 12/28/17 Brimonidine 0.1% Ophth Drops 1 drops EACHEYE BID 12/28/17 12/28/17 [Alphagan P 0.1% Ophth Drops] Latanoprost 0.005% Ophth Drops 1 drops EACHEYE QPM 12/28/17 12/28/17 [Xalatan Ophth Drops] Naproxen Sodium 220 mg PO DAILY PRN 12/28/17 12/28/17 Levothyroxine [Synthroid] 175 mcg PO QDAC #0 01/04/18 12/28/17 Metoprolol Succinate 50 mg PO DAILY #0 01/04/18 12/28/17 - PHYSICAL EXAM AT DISCHARGE General Appearance: positive: No acute distress, Alert, Other (Obese, poor short term memory) Eyes Bilateral: positive: Normal inspection, PERRL, EOMI, No lid inflammation, Conjunctivae nml, No scleral icterus ENT: positive: ENT inspection nml, Pharynx nml, No signs of dehydration. negative: Purulent nasal drainage, Pharyngeal erythema, Oral lesions Neck: positive: Nml inspection, Thyroid nml, No JVD, Trachea midline. negative : Thyromegaly, Lymphadenopathy (R), Lymphadenopathy (L), Carotid bruit, Tracheal deviation Respiratory: positive: Chest non-tender, No respiratory distress, Rales (Bases, expiratory ) Cardiovascular: positive: Regular rate & rhythm, No murmur, No gallop Peripheral Pulses: positive: 2+ Abdomen: positive: Non-tender, No organomegaly, Nml bowel sounds, No distention. negative: Guarding, Rebound Back: positive: Nml inspection. negative: CVA tenderness (R), CVA tenderness (L ) Skin: positive: Color nml, No rash, Warm, Other (Hematoma on left buttocks improved) Extremities: positive: Non-tender, Full ROM, Nml appearance, Pedal edema (mild) Neurologic/Psychiatric: positive: CN's nml (2-12), Sensation nml, Mood/affect nml, Disoriented to time, Weakness (Left sided weakness) - LABS Result Diagrams: 01/04/18 05:36 01/04/18 05:36 Other Lab Results: Laboratory Results WBC 7.4 x10^3/uL (4.8-10.8) 01/04/18 05:36 RBC 3.68 10^6/uL (4.20-5.40) L 01/04/18 05:36 Hgb 11.8 g/dL (12.0-16.0) L 01/04/18 05:36 Hct 35.8 % (37.0-47.0) L 01/04/18 05:36 MCV 97.4 fL (81.0-99.0) 01/04/18 05:36 MCH 32.2 pg (27.0-31.0) H 01/04/18 05:36 MCHC 33.1 g/dL (32.0-36.0) 01/04/18 05:36 RDW 14.1 % (12.0-15.0) 01/04/18 05:36 Plt Count 228 10^3/uL (130-450) 01/04/18 05:36 MPV 7.7 fL (7.9-10.8) L 01/04/18 05:36 Neut # (Auto) 4.5 10^3/uL (1.5-6.6) 01/04/18 05:36 Lymph # (Auto) 2.0 10^3/uL (1.5-3.5) 01/04/18 05:36 [place] # (Auto) 0.8 10^3/uL (0.0-1.0) 01/04/18 05:36 Eos # (Auto) 0.1 10^3/uL (0.0-0.7) 01/04/18 05:36 Baso # (Auto) 0.0 10^3/uL (0.0-0.1) 01/04/18 05:36 Absolute Nucleated RBC 0.00 x10^3/uL 01/04/18 05:36 Nucleated RBC % 0.0 /100WBC 01/04/18 05:36 Bld Gas Analysis Time 0537 12/30/17 05:25 Sample Site RIGHT RADIAL 12/30/17 05:25 ABG pH 7.28 (7.35-7.45) L 12/30/17 05:25 ABG pCO2 62 mmHg (34-45) H* 12/30/17 05:25 ABG pO2 87 mmHg (80-100) 12/30/17 05:25 ABG HCO3 28.7 mmol/L (22.0-26.0) H 12/30/17 05:25 ABG Total CO2 30.6 MMOL/L (21.0-29.0) H 12/30/17 05:25 ABG O2 Saturation 96 % (94-98) 12/30/17 05:25 ABG Oximetry Spot Check 97 % 12/30/17 05:25 ABG Base Excess 0.9 mmol/L (-2.0-3.0) 12/30/17 05:25 Rodrigo Test POSITIVE 12/30/17 05:25 VBG pH 7.331 (7.31-7.41) 12/29/17 18:30 Ionized Calcium 1.02 mmol/L (1.15-1.33) L 12/29/17 18:30 Respiration Rate 14 b/min 12/29/17 16:25 O2 Delivery Device OXYMASK 12/30/17 05:25 O2 Liters/Min 4.00 LPM 12/30/17 05:25 Vent Mode SYNCHRONOUS/TIMES 12/29/17 16:25 FiO2 50.00 12/29/17 16:25 Pressure Support Vent 11 cmH2O 12/29/17 16:25 EPAP 7 cmH2O 12/29/17 16:25 IPAP 18 cmH2O 12/29/17 16:25 Sodium 139 mmol/L (135-145) 01/04/18 05:36 Potassium 3.3 mmol/L (3.5-5.0) L 01/04/18 05:36 Chloride 93 mmol/L (101-111) L 01/04/18 05:36 Carbon Dioxide 37 mmol/L (21-32) H 01/04/18 05:36 Anion Gap 9.0 (6-13) 01/04/18 05:36 BUN 17 mg/dL (6-20) 01/04/18 05:36 Creatinine 1.0 mg/dL (0.4-1.0) 01/04/18 05:36 Estimated GFR (MDRD) 53 (>89) L 01/04/18 05:36 Glucose 114 mg/dL (70-100) H 01/04/18 05:36 Lactic Acid 0.7 mmol/L (0.5-2.2) 12/29/17 18:30 Calcium 9.0 mg/dL (8.5-10.3) 01/04/18 05:36 Ionized Calcium NO 01/04/18 05:36 Phosphorus 3.2 mg/dL (2.5-4.6) 01/04/18 05:36 Magnesium 1.9 mg/dL (1.7-2.8) 01/04/18 05:36 Total Bilirubin 0.5 mg/dL (0.2-1.0) 01/04/18 05:36 AST 28 IU/L (10-42) 01/04/18 05:36 ALT 20 IU/L (10-60) 01/04/18 05:36 Alkaline Phosphatase 29 IU/L (42-121) L 01/04/18 05:36 Troponin I < 0.04 ng/mL (<0.49) 01/04/18 11:01 B-Natriuretic Peptide 78 pg/mL (5-100) 12/29/17 18:30 Total Protein 6.9 g/dL (6.7-8.2) 01/04/18 05:36 Albumin 3.2 g/dL (3.2-5.5) 01/04/18 05:36 Globulin 3.7 g/dL (2.1-4.2) 01/04/18 05:36 Albumin/Globulin Ratio 0.9 (1.0-2.2) L 01/04/18 05:36 TSH 7.61 uIU/mL (0.34-5.60) H 12/29/17 04:55 Urine Color YELLOW 12/27/17 18:53 Urine Clarity CLEAR (CLEAR) 12/27/17 18:53 Urine pH 5.5 PH (5.0-7.5) 12/27/17 18:53 Ur Specific [place] 1.020 (1.002-1.030) 12/27/17 18:53 Urine Protein NEGATIVE mg/dL (NEGATIVE) 12/27/17 18:53 Urine Glucose (UA) NEGATIVE mg/dL (NEGATIVE) 12/27/17 18:53 Urine Ketones NEGATIVE mg/dL (NEGATIVE) 12/27/17 18:53 Urine Occult Blood NEGATIVE (NEGATIVE) 12/27/17 18:53 Urine Nitrite NEGATIVE (NEGATIVE) 12/27/17 18:53 Urine Bilirubin NEGATIVE (NEGATIVE) 12/27/17 18:53 Urine Urobilinogen 0.2 (NORMAL) E.U./dL (NORMAL) 12/27/17 18:53 Ur Leukocyte Esterase NEGATIVE (NEGATIVE) 12/27/17 18:53 Ur Microscopic Review NOT INDICATED 12/27/17 18:53 Urine Culture Comments NOT INDICATED 12/27/17 18:53 - DIAGNOSTIC IMAGING Diagnostic Imaging Results: Final report reviewed Diagnostic Imaging Results Comments: EXAM: [id number] XR/CXR1VW ([id number]) Procedure Date: 01/03/2018 Accession Number: [id number] / [id number] Procedure: XR - Chest 1 View X-Ray CPT Code: 91735 FULL RESULT: EXAM: CHEST RADIOGRAPHY EXAM DATE: 01/03/2018 09:30 AM HISTORY: COMMENTS: persistent hypoxia : No PRIORS: 1V CXR 12/29/17, 12/28/17 CT Angio 12/27/17. COMPARISON: 12/29/2017 TECHNIQUE: SINGLE AP VIEW FINDINGS IMPRESSION: Mild central edema and cardiomegaly. No significant change from prior. EXAM: CT/HEADWO ([id number]) Procedure Date: 12/30/2017 Accession Number: [id number] / [id number] Procedure: CT - Head W/O CPT Code: FULL RESULT: EXAM: Head W/O DATE: 12/30/2017 2:08 PM CLINICAL HISTORY: Altered mental status COMPARISON: 12/27/2017. TECHNIQUE: Multiaxial CT images were obtained from the foramen magnum to the vertex. IV contrast: None. Reformats: Coronal. In accordance with CT protocol optimization, one or more of the following dose reduction techniques were utilized for this exam: automated exposure control, adjustment of mA and/or KV based on patient size, or use of iterative reconstructive technique. FINDINGS: Parenchyma: No intraparenchymal hemorrhage. No evidence of mass, midline shift, or CT findings of infarction. Mirza-white differentiation is distinct. Extraaxial Spaces: Bifrontal prominent CSF spaces greater than expected for prominence of the ventricles, possible bifrontal subdural hygroma. No acute or subacute extra-axial collection. Ventricles: Normal in size and position. Sinuses: Imaged paranasal sinuses, orbits, and mastoids show no significant abnormality. Bones: No evidence of fracture or calvarial defect. Other: None. IMPRESSION: Stable exam. There is no acute or subacute subdural hematoma. No herniation/significant mass effect. EXAM: [id number] XR/CXR1VW ([id number]) Procedure Date: 12/29/2017 Accession Number: [id number] / [id number] Procedure: XR - Chest 1 View X-Ray CPT Code: 19677 FULL RESULT: EXAM: Chest 1 View X-Ray DATE: 12/29/2017 11:26 AM CLINICAL HISTORY: Worsening hypoxia COMPARISON: None. TECHNIQUE: Single view of the chest. FINDINGS: Markedly widened vascular pedicle with increased interstitial pulmonary markings, consistent with volume overload., Likely small associated pleural effusions. Cardiomegaly is unchanged. No pneumothorax. IMPRESSION: Volume overload. EXAM: [id number] XR/CXR1VW ([id number]) Procedure Date: 12/28/2017 Accession Number: [id number] / [id number] Procedure: XR - Chest 1 View X-Ray CPT Code: 10260 FULL RESULT: EXAM: Chest 1 View X-Ray DATE: 12/28/2017 8:27 AM CLINICAL HISTORY: F/U, Hypoxia COMPARISON: CT chest angiogram 12/27/2017. TECHNIQUE: Single view of the chest. FINDINGS: Lung volumes are low. Cardiomegaly with enlargement of the pulmonary arteries is redemonstrated, with apparent left pleural effusion possibly due to enlarged mediastinal silhouette. Increased interstitial markings in the right lung possibly represent pulmonary edema. There is no focal consolidation in the right lung. The upper left lung is clear. No pneumothorax. Postsurgical changes in the right chest are again seen. IMPRESSION: Limited radiograph with cardiomegaly and possible vascular congestion. Possible small left pleural effusion versus cardiomegaly. No focal consolidation in the visualized lungs. EXAM: [id number] CT/CHTANG ([id number]) Procedure Date: 12/27/2017 Accession Number: [id number] / [id number] Procedure: CT - Chest Angio (PE) CPT Code: FULL RESULT: EXAM: CT ANGIOGRAM CHEST. EXAM DATE: 12/27/2017 08:25 PM. CLINICAL HISTORY: Immobile, hypoxic, tachypneic. COMPARISON: None. TECHNIQUE: Routine helical imaging was performed through the chest in the pulmonary arterial phase. IV Contrast: 80 mL ISOVUE 300. Reconstructions: Coronal 3-D MIP reconstructions.Sagittal and coronal. In accordance with CT protocol optimization, one or more of the following dose reduction techniques were utilized for this exam: automated exposure control, adjustment of mA and/or KV based on patient size, or use of iterative reconstructive technique. FINDINGS: Pulmonary A mediastinum: Moderate atherosclerotic disease in the thoracic aorta. No thoracic aortic aneurysm. No mediastinal or hilar lymphadenopathy. Mild cardiomegaly. No mediastinal or hilar lymphadenopathy. No evidence for pulmonary emboli. Mild motion artifact limited. Lungs: Bilateral posterior dependent atelectasis. Scarring at the right middle lobe. No pleural effusion or pneumothorax. No acute bone findings. Upper abdomen: No acute findings. 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 IMPRESSION: 1. No evidence for pulmonary emboli. Mild motion artifact limited. 2. 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 3. See above. EXAM: [id number] CT/LELWO ([id number]) Procedure Date: 12/27/2017 Accession Number: [id number] / [id number] Procedure: CT - Lower Extremity Left W/O CPT Code: FULL RESULT: EXAM: LEFT HIP CT WITHOUT CONTRAST EXAM DATE: 12/27/2017 08:48 PM. CLINICAL HISTORY: Previous left total hip arthroplasty. Status post fall. Unable to rotate left hip. COMPARISON: HIP W/PELVIS 2-3V LT 12/27/2017. TECHNIQUE: Thin-section axial images were acquired of the hip without contrast. Post-processing: Coronal and sagittal reformats. Other: None. In accordance with CT protocol optimization, one or more of the following dose reduction techniques were utilized for this exam: automated exposure control, adjustment of mA and/or KV based on patient size, or use of iterative reconstructive technique. FINDINGS: The bones are osteopenic. Postoperative changes from previous left total hip arthroplasty. The left acetabular cup is intact without evidence of loosening. There is a questionable nondisplaced fracture at the superomedial aspect of the left femoral greater trochanter. The left femoral stem prosthesis is cemented into the left femur. No evidence of loosening of the left femoral prosthetic component. The left hip is externally rotated. No hip dislocation. Musculature: There is severe left gluteus minimus and moderate to severe left gluteus medius fatty atrophy. There is a 6.2 x 3.8 x 2.2 cm hypodense collection within the deep subcutaneous fat between the left gluteus medius and jerrod muscles. Other: The visualized intraperitoneal structures are unremarkable. IMPRESSION: 1. Osteopenia which lowers the sensitivity of detecting fractures by CT. 2. Previous left total hip arthroplasty. No left hip dislocation. Externally rotated left hip. 3. Questionable nondisplaced fracture at the superomedial aspect of the left femoral greater trochanter. 4. Severe left gluteus minimus and moderate to severe left gluteus medius muscle fatty atrophy. There is a 6.2 x 3.8 x 2.2 cm hypodense collection within the deep subcutaneous fat between the left gluteus medius and jerrod muscles. Differential may include a seroma, hematoma, scar tissue. An abscess is thought to be less likely, but cannot be entirely excluded. EXAM: CT/HEADWO ([id number]) Procedure Date: 12/27/2017 Accession Number: [id number] / [id number] Procedure: CT - Head W/O CPT Code: FULL RESULT: EXAM: CT HEAD WITHOUT CONTRAST. COMPARISON: CT head, 01/27/2013. CLINICAL HISTORY: Fall, loss of consciousness, Plavix.Multiple falls. TECHNIQUE: Axial CT images were obtained from the foramen magnum to the vertex without contrast In accordance with CT protocol optimization, one or more of the following dose reduction techniques were utilized for this exam: automated exposure control, adjustment of mA and/or KV based on patient size, or use of iterative reconstructive technique. FINDINGS: No acute intracranial hemorrhage. No masses. Redemonstrated are prominent bifrontal extra-axial CSF attenuation spaces, most likely reflecting volume loss given morphology. Ventricular size is normal. No lytic or blastic bone lesions are seen. Mastoids are clear. Middle ears are clear. There is leftward deviation of the external nose. Rightward deviation of the bony nasal septum is noted, clinical correlation with decreased right-sided nasal airflow suggested. No dense vessels. IMPRESSION: No intracranial hemorrhage, masses, or other discrete acute intracranial process identified. EXAM: [id number] CT/CSPWO ([id number]) Procedure Date: 12/27/2017 Accession Number: [id number] / [id number] Procedure: CT - Cervical Spine W/O CPT Code: FULL RESULT: EXAM: CT CERVICAL SPINE WITHOUT CONTRAST DATE: 12/27/2017 08:17 PM. HISTORY: Recent multiple falls. COMPARISONS: Accompanying CT study chest, head. TECHNIQUE: Thin-section axial images were acquired of the cervical spine without contrast. Post-processing: Coronal and sagittal reformats. Other: None. In accordance with CT protocol optimization, one or more of the following dose reduction techniques were utilized for this exam: automated exposure control, adjustment of mA and/or KV based on patient size, or use of iterative reconstructive technique. Findings: Relevant images are indicated (image number, series number). Severe multilevel cervical spondylosis, superimposed generalized osteopenia. Degenerative joint space narrowing diffusely atlantoaxial, atlantooccipital articulation without subluxation. Slight grade 1 anterolisthesis C2 on C3. Slight grade 1 anterolisthesis C3 on C4. Suspected fracture in the C4 vertebral body with moderate/marked bow tie compression without significant retropulsion (48, 8). Slight grade 1 anterolisthesis C4 on C5. Slight grade 1 listhesis C5 on C6. Apparent chronic superior anterior endplate fracturing of C5, with mild anterior wedging deformity. Mild compression deformity of C6 superior endplate with potential nondisplaced superior endplate fracturing (45, 8). Slight grade 1 anterolisthesis C6 on C7, mild compression deformity of C7. T1-T2, probably seen T2-T3 appear unremarkable. Impressions: 1. Multiple age-indeterminate compression fractures involving vertebral bodies only as detailed above, no retropulsion, superimposed marked osteoporosis. Superimposed advanced multilevel cervical spondylosis with multilevel posterior facet bony fusion. No prevertebral soft tissue swelling. Findings could be chronic. Findings compatible with stable fracture deformity. 2. If clinical suspicion persists dedicated unenhanced MRI can be performed to evaluate for bone marrow edema. 3. Given the osteoporotic appearance of the entire spine, with multilevel compression deformities, this patient should be considered at risk for additional fractures, potentially with severe neurological sequela, especially given the history of multiple falls. [place] fall precautions if not already in place. Critical result: Findings discussed immediately with Dr. Boswell by phone on 12/27/2017 at 2049 hrs. EXAM: XR/LHIP2V ([id number]) Procedure Date: 12/27/2017 Accession Number: [id number] / [id number] Procedure: XR - Hip w/Pelvis 2-3V LT CPT Code: FULL RESULT: EXAM: LEFT HIP AND PELVIS RADIOGRAPHY EXAM DATE: 12/27/2017 05:40 PM. HISTORY: Pain after falls. COMPARISONS: None. TECHNIQUE: 1 view of the pelvis and 1 view of the hip. FINDINGS: Bones are demineralized. Bilateral total hip arthroplasties. No dislocation. The left hip appears laterally rotated on both views. This limits evaluation. No definite acute fracture is seen. IMPRESSION: Bones are demineralized. Bilateral total hip arthroplasties. No dislocation. The left hip appears laterally rotated on both views. This limits evaluation. No definite acute fracture is seen. EXAM: XR/CXR2VW ([id number]) Procedure Date: 12/27/2017 Accession Number: [id number] / [id number] Procedure: XR - Chest 2 View X-Ray CPT Code: 55477 FULL RESULT: EXAM: CHEST RADIOGRAPHY EXAM DATE: 12/27/2017 05:40 PM. CLINICAL HISTORY: Hypoxic. COMPARISON: CHEST 2 VIEW 08/03/2017. TECHNIQUE: 2 views. FINDINGS: Lungs/Pleura: No focal opacities evident. No pleural effusion. No pneumothorax. Normal volumes. Limited penetration which limits visualization due to large body habitus. Mediastinum: Cardiomegaly. Other: Surgical clips project over the right lower lung. IMPRESSION: Stable cardiomegaly. No acute findings are seen. Limited as above. - FOLLOW UP Follow Up: Patient will be discharged to [facility] and referral for Hospice will be made. - TIME SPENT Time Spent in Discharge (Minutes): 65"
[2018-01-04] MEDS: LATANOPROST 0.005% OPHTH DROPS EACHEYE SCH (21:14)
[2018-01-05] MEDS: SODIUM CHLORIDE FLUSH 0.9% 10 ML SYRINGE IVP SCH ×3 (03:30→16:22)
[2018-01-05 05:14] LABS: BASOPHILS % (AUTO) 0.4 %; EOSINOPHILS # (AUTO) 0.2 10^3/uL (0.0-0.7); EOSINOPHILS % (AUTO) 2.9 %; HGB - HEMOGLOBIN 10.9 g/dL (12.0-16.0); LYMPHOCYTES # (AUTO) 1.9 10^3/uL (1.5-3.5); LYMPHOCYTES % (AUTO) 27.5 %; MEAN CORPUSCULAR HEMOGLOBIN 32.5 pg (27.0-31.0); MEAN CORPUSCULAR HGB CONC 33.2 g/dL (32.0-36.0); MEAN CORPUSCULAR VOLUME 97.8 fL (81.0-99.0); MEAN PLATELET VOLUME 8.1 fL (7.9-10.8); MONOCYTES # (AUTO) 0.7 10^3/uL (0.0-1.0); MONOCYTES % (AUTO) 10.9 %; NEUTROPHILS % (AUTO) 58.3 %; PLT - PLATELET COUNT 217 10^3/uL (130-450); RED BLOOD COUNT 3.34 10^6/uL (4.20-5.40); RED CELL DISTRIBUTION WIDTH 14.5 % (12.0-15.0); WHITE BLOOD COUNT 6.8 x10^3/uL (4.8-10.8)
[2018-01-05 05:29] LABS: ALBUMIN 2.9 g/dL (3.2-5.5); ALBUMIN/GLOBULIN RATIO 0.9 (1.0-2.2); ALKALINE PHOSPHATASE 30 IU/L (42-121); ALT ALANINE AMINOTRANSFERASE 15 IU/L (10-60); AST ASPARTATE AMINOTRANSFERASE 19 IU/L (10-42); BILIRUBIN,TOTAL 0.9 mg/dL (0.2-1.0); BUN - BLOOD UREA NITROGEN 21 mg/dL (6-20); CALCIUM 8.6 mg/dL (8.5-10.3); CARBON DIOXIDE - CO2 38 mmol/L (21-32); CHLORIDE 94 mmol/L (101-111); CREATININE 0.9 mg/dL (0.4-1.0); GFR - MDRD 59 (>89); GLUCOSE 100 mg/dL (70-100); PHOSPHORUS 3.8 mg/dL (2.5-4.6); SODIUM 138 mmol/L (135-145); TOTAL PROTEIN 6.3 g/dL (6.7-8.2)
[2018-01-05] MEDS: LEVOTHYROXINE 75 MCG TABLET PO SCH (06:38)
[2018-01-05] MEDS: PANTOPRAZOLE 40 MG VIAL IVP SCH (06:38)
[2018-01-05] MEDS: LEVOTHYROXINE 100 MCG TABLET PO SCH (06:38)
[2018-01-05] MEDS: SODIUM CHLORIDE FLUSH 0.9% 10 ML SYRINGE IVP PRN ×2 (06:39→18:37)
[2018-01-05] MEDS: ZINC OXIDE 20% OINT 28.35 GM TUBE TOP PRN (06:39)
[2018-01-05] MEDS ORDERED: POTASSIUM CHLORIDE 20 MEQ/15 ML UDC PO SCH ×2 (08:00→08:04)
[2018-01-05] MEDS: ENOXAPARIN 40 MG/0.4 ML SYRINGE SUBQ SCH (08:36)
[2018-01-05] MEDS: CHLORHEXIDINE GLUCONATE 15 ML UDC PO SCH ×2 (08:36→21:48)
[2018-01-05] MEDS: FAMOTIDINE 20 MG TABLET PO SCH (08:36)
[2018-01-05] MEDS: POLYETHYLENE GLYCOL 3350 17 GM PACKET PO SCH (08:36)
[2018-01-05] MEDS: LISINOPRIL 20 MG TABLET PO SCH (08:36)
[2018-01-05] MEDS: DOCUSATE SODIUM 250 MG CAPSULE PO SCH (08:36)
[2018-01-05] MEDS: METOPROLOL SUCCINATE 50 MG TABLET PO SCH (08:37)
[2018-01-05] MEDS: SENNA 8.6 MG TABLET PO SCH (08:37)
[2018-01-05] MEDS: CITALOPRAM 10 MG TABLET PO SCH (08:37)
[2018-01-05] MEDS: hydroCHLOROthiazide 25 MG TABLET PO SCH (08:37)
[2018-01-05] MEDS: ASPIRIN EC 325 MG TABLET PO SCH (08:37)
[2018-01-05] MEDS: BRIMONIDINE 0.1% OPHTH DROPS 5 ML EACHEYE SCH ×2 (08:38→21:47)
[2018-01-05] MEDS: POTASSIUM CHLOR 10 MEQ/100 ML 10 MEQ/100 ML BAG IV ONE ×2 (08:49→11:12)
[2018-01-05] MEDS ORDERED: POTASSIUM CHLOR 10 MEQ/100 ML 10 MEQ/100 ML BAG IV ONE (11:00)
--- NOTE | 2018-01-05 17:04 | PROVIDER PROGRESS NOTE ---
Assessment/Plan - Problem List (1) Hematoma Assessment/Plan: Pain has improved since admission. Pt cannot and will not perform PT. (2) Altered mental status Assessment/Plan: This was felt to be due to probable dementia and a memory care unit was advised by Palliative Care. [facility] will [facility] her for acceptance today, then her DPOA will review orders and plans. Possible DCh today or tomorrow. (3) Hypokalemia Assessment/Plan: Pt will need an increase in her daily po K replacement and will give 1 K rider today by iv. Monitor daily BMP. (4) Acute respiratory failure with hypoxia and hypercapnia Assessment/Plan: Resolved. - Current Meds Current Meds: Current Medications Generic Name Dose Route Start Last Admin Trade Name Freq PRN Reason Stop Dose Admin Acetaminophen 650 mg 12/27/17 22:19 12/28/17 13:15 Tylenol PO 650 mg Q4HR PRN Administration Pain or Fever > 38C (100.4F) Hydrocodone Bitart/Acetaminophen 1 tab 12/27/17 22:19 01/04/18 21:13 [place] 5/325 PO 1 tab Q4HR PRN Administration Pain 5 to 7 Aspirin 325 mg 12/28/17 09:00 01/05/18 08:37 Ecotrin PO 325 mg DAILY SUNIL Administration Chlorhexidine Gluconate 15 ml 12/29/17 21:00 01/05/18 08:36 Peridex PO 15 ml BID SUNIL Administration Citalopram Hydrobromide 10 mg 12/28/17 09:00 01/05/18 08:37 Celexa PO 10 mg DAILY SUNIL Administration Docusate Sodium 250 - 500 mg 12/30/17 09:00 01/05/18 08:36 Colace 250mg Capsule PO 250 mg DAILY SUNIL Administration Enoxaparin Sodium 40 mg 12/28/17 09:00 01/05/18 08:36 Lovenox SUBQ 40 mg DAILY SUNIL Administration Famotidine 20 mg 12/28/17 09:00 01/05/18 08:36 Pepcid PO 20 mg DAILY SUNIL Administration Hydrochlorothiazide 25 mg 01/03/18 09:00 01/05/18 08:37 Hydrodiuril PO 25 mg DAILY SUNIL Administration Acetaminophen 100 mls @ 400 mls/hr 12/30/17 20:58 01/01/18 19:42 Ofirmev IV Infused Q6HR PRN Infusion PAIN Levothyroxine Sodium 100 mcg 12/31/17 07:00 01/05/18 06:38 Synthroid PO 100 mcg QDAC SUNIL Administration Levothyroxine Sodium 75 mcg 12/31/17 07:00 01/05/18 06:38 Synthroid PO 75 mcg QDAC SUNIL Administration Lisinopril 40 mg 01/03/18 09:00 01/05/18 08:36 Zestril PO 40 mg DAILY SUNIL Administration Lorazepam 0.5 mg 12/29/17 19:57 01/04/18 21:13 Ativan Inj (Vial) IVP 0.5 mg Q2H PRN Administration Anxiety Metoprolol Succinate 50 mg 01/03/18 09:00 01/05/18 08:37 Toprol Xl PO 50 mg DAILY SUNIL Administration Morphine Sulfate 1 mg 12/29/17 19:57 12/31/17 02:41 Morphine IVP 1 mg Q2H PRN Administration PAIN Multi-Ingredient Ointment 1 applic 12/31/17 22:23 01/05/18 06:39 Zinc Oxide TOP 1 applic PRN PRN Administration Skin Care Naproxen 250 mg 12/28/17 18:32 01/04/18 06:40 Naprosyn PO 250 mg DAILY PRN Administration PAIN Pantoprazole Sodium 40 mg 12/30/17 07:00 01/05/18 06:38 Protonix IVP 40 mg QDAC SUNIL Administration Brimonidine 0.1% 1 each 12/28/17 21:00 01/05/18 08:38 Ophth Drops 5 Ml EACHEYE 1 each BID SUNIL Administration Latanoprost 0.005% 1 each 12/28/17 21:00 01/04/18 21:14 Ophth Drops EACHEYE 1 each QPM SUNIL Administration Polyethylene Glycol 17 gm 12/28/17 09:00 01/05/18 08:36 Miralax PO 17 gm DAILY SUNIL Administration Senna 8.6 - 17.2 mg 12/30/17 09:00 01/05/18 08:37 Senokot PO 8.6 mg DAILY SUNIL Administration Sodium Chloride 10 ml 12/27/17 22:19 01/05/18 06:39 Normal Saline Flush 0.9% IVP 10 ml PRN PRN Administration NEEDED PER PROVIDER ORDERS Sodium Chloride 10 ml 12/28/17 01:00 01/05/18 16:22 Normal Saline Flush 0.9% IVP 10 ml 0100,[id number],1700 [facility] Administration - Lab Result Fish Bone Diagrams: 01/05/18 04:52 01/05/18 04:52 - Additional Planning My Orders: My Active Orders 01/05/18 08:04 Potassium Chloride Oral Soln 40 meq PO DAILYWM 01/05/18 11:27 Discharge [RC] .ONCE Initiate Discharge Checklist [RC] .ONCE Subjective - Subjective Patient Reports: Resting Comfortably, No Complaints Objective Vital Signs: Vital Signs - 24 hr 01/04/18 01/05/18 01/05/18 19:59 01:48 05:30 Temperature 36.6 C 36.4 C L Heart Rate [ 64 64 Brachial] Heart Rate [ 68 Radial] Respiratory 20 20 20 Rate Blood Pressure 132/68 H 146/80 H [Right Brachial artery] O2 Saturation 94 92 97 01/05/18 01/05/18 14:00 15:23 Temperature 36.8 C 36.4 C L Heart Rate [ 65 67 Brachial] Heart Rate [ Radial] Respiratory 20 20 Rate Blood Pressure 139/75 H 126/59 L [Right Brachial artery] O2 Saturation 94 93 Oxygen O2 Source Nasal cannula I&O (Last 24 Hrs): Intake and Output Totals x24h 01/03/18 01/04/18 01/05/18 23:59 23:59 23:59 Intake Total 896 770 775 Output Total 400 125 Balance 896 370 650 General: Alert HEENT: Atraumatic, Mucous membr. moist/pink, Other (R eye cataract) Neuro: Focal Deficits, Other (L terrance paresis) Cardiovascular: No murmurs Respiratory: No respiratory distress, Breath sounds nml Abdomen: Normal bowel sounds, No tenderness Extremities: No edema - Results Results: Laboratory Results WBC 6.8 x10^3/uL (4.8-10.8) 01/05/18 04:52 RBC 3.34 10^6/uL (4.20-5.40) L 01/05/18 04:52 Hgb 10.9 g/dL (12.0-16.0) L 01/05/18 04:52 Hct 32.7 % (37.0-47.0) L 01/05/18 04:52 MCV 97.8 fL (81.0-99.0) 01/05/18 04:52 MCH 32.5 pg (27.0-31.0) H 01/05/18 04:52 MCHC 33.2 g/dL (32.0-36.0) 01/05/18 04:52 RDW 14.5 % (12.0-15.0) 01/05/18 04:52 Plt Count 217 10^3/uL (130-450) 01/05/18 04:52 MPV 8.1 fL (7.9-10.8) 01/05/18 04:52 Neut # (Auto) 4.0 10^3/uL (1.5-6.6) 01/05/18 04:52 Lymph # (Auto) 1.9 10^3/uL (1.5-3.5) 01/05/18 04:52 [place] # (Auto) 0.7 10^3/uL (0.0-1.0) 01/05/18 04:52 Eos # (Auto) 0.2 10^3/uL (0.0-0.7) 01/05/18 04:52 Baso # (Auto) 0.0 10^3/uL (0.0-0.1) 01/05/18 04:52 Absolute Nucleated RBC 0.00 x10^3/uL 01/05/18 04:52 Nucleated RBC % 0.0 /100WBC 01/05/18 04:52 Bld Gas Analysis Time 0537 12/30/17 05:25 Sample Site RIGHT RADIAL 12/30/17 05:25 ABG pH 7.28 (7.35-7.45) L 12/30/17 05:25 ABG pCO2 62 mmHg (34-45) H* 12/30/17 05:25 ABG pO2 87 mmHg (80-100) 12/30/17 05:25 ABG HCO3 28.7 mmol/L (22.0-26.0) H 12/30/17 05:25 ABG Total CO2 30.6 MMOL/L (21.0-29.0) H 12/30/17 05:25 ABG O2 Saturation 96 % (94-98) 12/30/17 05:25 ABG Oximetry Spot Check 97 % 08/08/18 05:25 ABG Base Excess 0.9 mmol/L (-2.0-3.0) 12/30/17 05:25 Rodrigo Test POSITIVE 12/30/17 05:25 VBG pH 7.331 (7.31-7.41) 12/29/17 18:30 Ionized Calcium 1.02 mmol/L (1.15-1.33) L 12/29/17 18:30 Respiration Rate 14 b/min 12/29/17 16:25 O2 Delivery Device OXYMASK 12/30/17 05:25 O2 Liters/Min 4.00 LPM 12/30/17 05:25 Vent Mode SYNCHRONOUS/TIMES 12/29/17 16:25 FiO2 50.00 12/29/17 16:25 Pressure Support Vent 11 cmH2O 12/29/17 16:25 EPAP 7 cmH2O 12/29/17 16:25 IPAP 18 cmH2O 12/29/17 16:25 Sodium 138 mmol/L (135-145) 01/05/18 04:52 Potassium 3.2 mmol/L (3.5-5.0) L 01/05/18 04:52 Chloride 94 mmol/L (101-111) L 01/05/18 04:52 Carbon Dioxide 38 mmol/L (21-32) H 01/05/18 04:52 Anion Gap 6.0 (6-13) 01/05/18 04:52 BUN 21 mg/dL (6-20) H 01/05/18 04:52 Creatinine 0.9 mg/dL (0.4-1.0) 01/05/18 04:52 Estimated GFR (MDRD) 59 (>89) L 01/05/18 04:52 Glucose 100 mg/dL (70-100) 01/05/18 04:52 Lactic Acid 0.7 mmol/L (0.5-2.2) 12/29/17 18:30 Calcium 8.6 mg/dL (8.5-10.3) 01/05/18 04:52 Ionized Calcium NO 01/05/18 04:52 Phosphorus 3.8 mg/dL (2.5-4.6) 01/05/18 04:52 Magnesium 2.0 mg/dL (1.7-2.8) 01/05/18 04:52 Total Bilirubin 0.9 mg/dL (0.2-1.0) 01/05/18 04:52 AST 19 IU/L (10-42) 01/05/18 04:52 ALT 15 IU/L (10-60) 01/05/18 04:52 Alkaline Phosphatase 30 IU/L (42-121) L 01/05/18 04:52 Troponin I < 0.04 ng/mL (<0.49) 01/04/18 11:01 B-Natriuretic Peptide 78 pg/mL (5-100) 12/29/17 18:30 Total Protein 6.3 g/dL (6.7-8.2) L 01/05/18 04:52 Albumin 2.9 g/dL (3.2-5.5) L 01/05/18 04:52 Globulin 3.4 g/dL (2.1-4.2) 01/05/18 04:52 Albumin/Globulin Ratio 0.9 (1.0-2.2) L 01/05/18 04:52 TSH 7.61 uIU/mL (0.34-5.60) H 12/29/17 04:55 Urine Color YELLOW 12/27/17 18:53 Urine Clarity CLEAR (CLEAR) 12/27/17 18:53 Urine pH 5.5 PH (5.0-7.5) 08 18:53 Ur Specific [place] 1.020 (1.002-1.030) 12/27/17 18:53 Urine Protein NEGATIVE mg/dL (NEGATIVE) 12/27/17 18:53 Urine Glucose (UA) NEGATIVE mg/dL (NEGATIVE) 12/27/17 18:53 Urine Ketones NEGATIVE mg/dL (NEGATIVE) 12/27/17 18:53 Urine Occult Blood NEGATIVE (NEGATIVE) 12/27/17 18:53 Urine Nitrite NEGATIVE (NEGATIVE) 12/27/17 18:53 Urine Bilirubin NEGATIVE (NEGATIVE) 12/27/17 18:53 Urine Urobilinogen 0.2 (NORMAL) E.U./dL (NORMAL) 12/27/17 18:53 Ur Leukocyte Esterase NEGATIVE (NEGATIVE) 12/27/17 18:53 Ur Microscopic Review NOT INDICATED 12/27/17 18:53 Urine Culture Comments NOT INDICATED 12/27/17 18:53
[2018-01-05] MEDS: HYDROcod/ACETAM 5/325 MG TABLET PO PRN (18:37)
[2018-01-05] MEDS: LORazepam 2 MG/ML VIAL IVP PRN (18:37)
[2018-01-05] MEDS: LATANOPROST 0.005% OPHTH DROPS EACHEYE SCH (21:54)
[2018-01-06] MEDS: SODIUM CHLORIDE FLUSH 0.9% 10 ML SYRINGE IVP SCH ×2 (03:10→08:48)
[2018-01-06 04:50] LABS: BASOPHILS % (AUTO) 0.5 %; EOSINOPHILS # (AUTO) 0.2 10^3/uL (0.0-0.7); EOSINOPHILS % (AUTO) 2.4 %; HGB - HEMOGLOBIN 12.2 g/dL (12.0-16.0); LYMPHOCYTES # (AUTO) 2.1 10^3/uL (1.5-3.5); LYMPHOCYTES % (AUTO) 28.7 %; MEAN CORPUSCULAR HEMOGLOBIN 32.2 pg (27.0-31.0); MEAN CORPUSCULAR VOLUME 97.6 fL (81.0-99.0); MONOCYTES # (AUTO) 0.7 10^3/uL (0.0-1.0); MONOCYTES % (AUTO) 9.9 %; NEUTROPHILS # (AUTO) 4.3 10^3/uL (1.5-6.6); NEUTROPHILS % (AUTO) 58.5 %; PLT - PLATELET COUNT 240 10^3/uL (130-450); RED BLOOD COUNT 3.77 10^6/uL (4.20-5.40); RED CELL DISTRIBUTION WIDTH 14.3 % (12.0-15.0); WHITE BLOOD COUNT 7.4 x10^3/uL (4.8-10.8)
[2018-01-06 05:08] LABS: ALBUMIN 3.4 g/dL (3.2-5.5); ALBUMIN/GLOBULIN RATIO 0.9 (1.0-2.2); ALKALINE PHOSPHATASE 37 IU/L (42-121); ALT ALANINE AMINOTRANSFERASE 18 IU/L (10-60); AST ASPARTATE AMINOTRANSFERASE 19 IU/L (10-42); BILIRUBIN,TOTAL 0.7 mg/dL (0.2-1.0); BUN - BLOOD UREA NITROGEN 22 mg/dL (6-20); CALCIUM 9.1 mg/dL (8.5-10.3); CARBON DIOXIDE - CO2 36 mmol/L (21-32); CHLORIDE 94 mmol/L (101-111); GFR - MDRD 53 (>89); GLUCOSE 104 mg/dL (70-100); MAGNESIUM 2.1 mg/dL (1.7-2.8); PHOSPHORUS 3.8 mg/dL (2.5-4.6); SODIUM 138 mmol/L (135-145); TOTAL PROTEIN 7.4 g/dL (6.7-8.2)
[2018-01-06] MEDS: LEVOTHYROXINE 75 MCG TABLET PO SCH (06:14)
[2018-01-06] MEDS: LEVOTHYROXINE 100 MCG TABLET PO SCH (06:14)
[2018-01-06] MEDS: PANTOPRAZOLE 40 MG VIAL IVP SCH (06:26)
[2018-01-06] MEDS: SODIUM CHLORIDE FLUSH 0.9% 10 ML SYRINGE IVP PRN ×3 (06:26→06:31)
[2018-01-06] MEDS: LISINOPRIL 20 MG TABLET PO SCH (08:48)
[2018-01-06] MEDS: SENNA 8.6 MG TABLET PO SCH (08:48)
[2018-01-06] MEDS: CITALOPRAM 10 MG TABLET PO SCH (08:48)
[2018-01-06] MEDS: DOCUSATE SODIUM 250 MG CAPSULE PO SCH (08:48)
[2018-01-06] MEDS: hydroCHLOROthiazide 25 MG TABLET PO SCH (08:48)
[2018-01-06] MEDS: POLYETHYLENE GLYCOL 3350 17 GM PACKET PO SCH (08:48)
[2018-01-06] MEDS: METOPROLOL SUCCINATE 50 MG TABLET PO SCH (08:48)
[2018-01-06] MEDS: ASPIRIN EC 325 MG TABLET PO SCH (08:48)
[2018-01-06] MEDS: FAMOTIDINE 20 MG TABLET PO SCH (08:48)
[2018-01-06] MEDS: CHLORHEXIDINE GLUCONATE 15 ML UDC PO SCH (08:55)
[2018-01-06] MEDS: ENOXAPARIN 40 MG/0.4 ML SYRINGE SUBQ SCH (10:32)
[2018-01-06] MEDS: LORazepam 2 MG/ML VIAL IVP PRN (10:32)
[2018-01-06] MEDS: BRIMONIDINE 0.1% OPHTH DROPS 5 ML EACHEYE SCH (10:35)
[2018-01-06 16:14] VITALS: BP 118/86
[2018-01-06] MEDS: HYDROcod/ACETAM 5/325 MG TABLET PO PRN (16:27)
--- NOTE | 2018-01-07 07:33 | DISCHARGE SUMMARY ---
Physician: Deborah Bryan MD DATE OF ADMISSION: 12/27/2017 DATE OF DISCHARGE: 01/06/2018 HISTORY OF PRESENT ILLNESS: This is an addendum to the extensive Discharge Summary that was written two days previously by Dr. Garza. Please see the Discharge Summary dated 01/04/18. She stayed for an additional two days, in order to complete the acceptance by a [facility], and she was transferred to [facility], in [place]. And on 01/05/2018, she did have hypokalemia that required replacement. On 01/06/18 she underwent testing for qualifying for supplemental oxygen. She was hypoxic at rest, with a room air O2 saturation of 83%. At rest with oxygen at 5L per nasal cannula, her saturation improved to 93%. I am ordering home O2 at 5L via nasal cannula continuously. All other diagnoses are as listed on the initial discharge summary from 2017. DISCHARGE DIAGNOSES 1. Acute respiratory failure with hypoxia and hypercapnia. The patient was discharged on a new order for 5 liters oxygen by nasal cannula continuously. 2. Pulmonary hypertension. 3. Dementia. 4. Contusion of left thigh. 5. Hypertension. 6. Depression. 7. Hypothyroidism. 8. Glaucoma. 9. Left hemiparesis from prior stroke. See Dr. Garza's note regarding her discharge medication, discharge status, discharge physical exam, discharge followup. CODE STATUS: DNR. Time required to complete discharge, chart review, dictation, prescription orders: 60 minutes. cc: Godfrey Steward MD TD: 01/06/2018 18:26 [facility]
== END 2018-01-06 16:50 | DRG 533 ==
LOC: EDUNIT# → ED 16:19 → ICU 21:17 → MS3 01-01 14:00
PROVIDERS: ADMIT Internal Medicine; ATTEND Internal Medicine
DX: S72.115A Nondisplaced fracture of greater trochanter of left femur, initial encounter for closed fracture (principal); S72.92XA Unspecified fracture of left femur, initial encounter for closed fracture; R32 Unspecified urinary incontinence; J96.02 Acute respiratory failure with hypercapnia; R09.02 Hypoxemia; J96.01 Acute respiratory failure with hypoxia; I69.954 Hemiplegia and hemiparesis following unspecified cerebrovascular disease affecting left non-dominant side; E87.1 Hypo-osmolality and hyponatremia; W06.XXXA Fall from bed, initial encounter; I10 Essential (primary) hypertension; E03.9 Hypothyroidism, unspecified; Z91.81 History of falling; I95.9 Hypotension, unspecified; S70.12XA Contusion of left thigh, initial encounter; I27.20 Pulmonary hypertension, unspecified; F03.90 Unspecified dementia, unspecified severity, without behavioral disturbance, psychotic disturbance, mood disturbance, and anxiety; Z66 Do not resuscitate; E87.6 Hypokalemia
CPT/HCPCS: 36415; 36600; 51702; 70450; 71045; 71046; 71275; 72125; 80048; 80053; 81001; 81003; 82040; 82330; 82803; 83605; 83735; 83880; 84100; 84443; 84484; 85025; 87040; 87086; 87150; 93005; 93306; 94660; 94761; 96360; 96372; 99223; 99284